=== PATIENT | female | born 1935 | race Caucasian/White ===

== ENCOUNTER 2017-06-14 18:27 | Inpatient (IN) | payer MEDICARE, OTHER ==
[~2017-06-14] VITALS: Ht 160 cm; Wt 79.5 kg
[~2017-06-14 18:27] MED LIST: ACET325; ACET325 PO; ALBIPROI; ALBIPROI INH; ALBU3IS INH; ALBU90I INH; ALBU90OI INH; ALBU90OI6 INH; APRISO PO; ASCO500 PO; ATOR20 PO; AZIT250 PO; Aggrenox Capsu1 EACH PO; Apriso0.375 GM; Apriso0.375 GM PO; CALCNI; CEFAZOLIN 2 GM; CEFD300 PO; CEFP200 PO; CEFP500 PO; CEPH250A PO; CEPH500 PO; CETI10 PO; CIPR250 PO; CIPR500 PO; CLIN150 PO; CLIN300 PO; CLOT10 SUSW; CYCL10 PO; Ceftriaxone2 G1 PO; DARB200I SC; DARB200I SQ; DEXILANT PO; DIPASPER; DIPASPER PO; DIPENTUM; DIPENTUM PO; DOCSEN PO; DOCU100 PO; DOXE0.5; DOXE0.5 PO; DOXE25; DOXY100 PO; ENOX100I SQ; ERGO50000 PO; ESTRTP PV; FAMO20; FAMO20 PO; FERR325 PO; FLUC100 PO; FLUSAL1005 IH; FLUSAL2505 IH; FLUSAL5005 IH; FLUT.05NI; FLUT1DIS5 INH; FURO100EL; FURO20; FURO40 PO; Furosemide40 MG; GABA300; GABA300 PO; GABA400 PO; GABA600 PO; GUAI600T33 PO; HYDACE10B PO; HYDACE5 PO; HYDACE5325 PO; HYDCHL12.5 PO; HYDCHL25; HYDCOR1TC TOP; HYDR10; HYDR10 PO; HYDR1TAB94 PO; Humalog100 UNIT/3 SC; IBUP200; INSLI100I; INSLI100I SC; INSLI100I SUBQ; INSLIS75I SC; INSU100I6; INSU100I6 SC; INSUASPI SC; INSUL100I SC; INSULANI; INSULANI SC; INSULANI SUBQ; INSULANPEN SC; INSULISPEN SUBQ; LEVE500 PO; LEVFLO250 PO; LEVFLO500; LEVFLO500 PO; LEVO750; LEVO750 PO; LEVOFLOXACIN500 MG; LISI10 PO; LISI20; LISI5 PO; LOSA50 PO; Levaquin500 MG PO; MESA250ER PO; META400; METH1TAB8 PO; METO10 PO; METO25 PO; METO5A PO; METPRE4DP PO; METR500 PO; MIRT15 PO; MOMCAS15; MOVIPREP; MULVITMIND PO; Milk Of Ma800 MG/5 M PO; Mucinex600 MG PO; NAPR500; NEBI10 PO; NEBI5 PO; NIAC500 PO; NITR.4SL SL; NITR.4TPA TOP; NITR100 PO; NITR100CA PO; Nasal Spray30 ML; Nitrofurantoin50 MG PO; Norco 5-325 Ta1 EACH PO; Novolog Fl100 UNIT/1 SC; Novolog Fl100 UNIT/1 SQ; OLOP.1OPSO; OLOP.1OPSO BOTHEYES; OLOPATADINE H30.5 GM NS; OMEP20ER; OMEP20ER PO; OMEP40CA12 PO; ONDA4 PO; ONDA4ODT MM; OXYACE5T PO; PANT40 PO; PATANASE; PIOG15; PIOG30 PO; PIOG45 PO; POLY17UD PO; POTCHL10ER; POTCHL10ER PO; POTCHL20ER PO; PRED10 PO; PRED20; PRED20 PO; PRED5; PREG75; PROACE100; PROACE100 PO; PROM25 PO; Pantoprazole So40 MG PO; Pedi-Dri 100,0060 GM TOP; Percocet 5-3251 EACH PO; Prednisone20 MG; Prednisone20 MG PO; QUESTRAN PO; ROSI4; RXHYDACE PO; RXPROACE PO; SACC250C PO; SIMV10; SIMV10 PO; SIMV40; SIMV40 PO; SPIRIVA; TEMA15 PO; TIOT18 IH; TORSE20 PO; TRIAOI; TRIM100 PO; VICODIN 5-3001 EACH PO; Ventolin Soln3 ML INH; Zithromax250 MG PO; [UNRECOGNIZED DRUG - CODE] PO
[2017-06-14 19:42] LABS: BASOPHILS ABSOLUTE AUTO 0.03 K/mm3 (0.00-0.23); BASOPHILS PERCENT AUTO 0 % (0-2); EOSINOPHILS ABSOLUTE AUTO 0.03 K/mm3 (0.00-0.68); EOSINOPHILS PERCENT AUTO 0 % (0-6); Hemoglobin 13.9 g/dL (11.5-16.0); IMMATURE GRAN ABSOLUTE AUTO 0.03 K/mm3 (0.00-0.10); IMMATURE GRAN PERCENT AUTO 0 % (0-1); LYMPHOCYTES ABSOLUTE AUTO 0.28 K/mm3 (0.84-5.20); LYMPHOCYTES PERCENT AUTO 2 % (21-46); MONOCYTES ABSOLUTE AUTO 0.58 K/mm3 (0.16-1.47); MONOCYTES PERCENT AUTO 4 % (4-13); Mean Corpuscular HGB 31.4 pg (26.0-34.0); Mean Corpuscular HGB Conc 32.3 g/dL (31.5-36.5); Mean Platelet Volume 10.5 fL (9.1-12.4); NEUTROPHILS ABSOLUTE AUTO 14.41 K/mm3 (1.96-9.15); NEUTROPHILS PERCENT AUTO 94 % (41-73); Platelet Count 209 K/mm3 (150-400); RDW Coefficient Variation 13.4 % (11.7-14.2); RDW Standard Deviation 48.1 fL (35.1-46.3); Red Blood Cell Count 4.43 M/mm3 (3.80-5.20); White Blood Cell Count 15.36 K/mm3 (4.00-11.30)
[2017-06-14 19:43] LABS: Mean Corpuscular Volume 97 fL (80-100)
[2017-06-14 19:54] LABS: International Normalized Ratio 1.01; Prothrombin Time Results 10.5 Sec (9.7-11.5)
[2017-06-14 19:57] LABS: Alanine Aminotransfer (ALT/SGP 24 U/L (12-78); Albumin, Blood 3.5 g/dL (3.4-5.0); Albumin/Globulin Ratio 0.9 (0.8-1.8); Alk Phos 129 U/L (50-136); Anion Gap 7 mmol/L (6-16); Aspartate Aminotrans (AST/SGOT 13 U/L (12-37); Bilirubin, Total 0.5 mg/dL (0.1-1.0); Blood Urea Nitrogen 25 mg/dL (8-24); Bun/Creatinine Ratio 21.7 (12.0-20.0); CO2, Blood 27 mmol/L (21-32); Calcium, Blood 9.1 mg/dL (8.5-10.1); Chloride, Blood 105 mmol/L (98-108); Creatinine, Blood 1.15 mg/dL (0.40-1.00); Globulin, Blood 3.8 g/dL (2.2-4.0); Glomerular Filtration Rate 48 (60-); Glucose, Blood 186 mg/dL (70-99); Potassium, Blood 4.7 mmol/L (3.5-5.5); Sodium, Blood 139 mmol/L (136-145); Total Protein, Blood 7.3 g/dL (6.4-8.2)
[2017-06-14 19:59] LABS: Influenza A Negative (NEGATIVE); Influenza B Negative (NEGATIVE)
[2017-06-14 20:25] LABS: Troponin I <0.015 ng/mL (0.000-0.040)
[2017-06-14 20:45] LABS: Source, Urine Catheter
[2017-06-14 20:48] LABS: Bilirubin, Urine Neg (Neg); Blood, Urine 1+ (Neg); Glucose Qualitative, Urine Neg (Neg); Ketones, Urine Neg (Neg); Leukocyte Esterase, Urine 1+ (Neg); Nitrite, Urine Neg (Neg); Protein, Urine 2+ (Neg); Urobilinogen, Urine NORM (Normal)
[2017-06-14 20:58] LABS: Appearance, Urine Clear (Clear); Color, Urine Yellow (P-Yellow)
[2017-06-14 20:59] LABS: Bacteria Rare /hpf; Red Blood Cells, Urine Not Seen /hpf (0-2); Squamous Epithelial Cells Rare /hpf (Few); White Blood Cells, Urine Not Seen /hpf (0-5)
[2017-06-15 04:28] LABS: U Amphetamine Screen Not Detected; U Barbituate Screen Not Detected; U Benzodiazapine Screen Not Detected; U Buprenorphine Screen Not Detected; U Cannabinoids Screen Not Detected; U Cocaine Screen Not Detected; U Methadone Screen Not Detected; U Methamphetamine Screen Not Detected; U Opiates Screen DETECTED; U Oxycodone Screen Not Detected; U Phencyclidine Screen Not Detected; U Propoxyphene Screen Not Detected
[2017-06-15 06:09] LABS: BASOPHILS ABSOLUTE AUTO 0.01 K/mm3 (0.00-0.23); BASOPHILS PERCENT AUTO 0 % (0-2); EOSINOPHILS ABSOLUTE AUTO 0.01 K/mm3 (0.00-0.68); EOSINOPHILS PERCENT AUTO 0 % (0-6); Hematocrit 36.6 % (33.0-51.0); Hemoglobin 11.5 g/dL (11.5-16.0); IMMATURE GRAN ABSOLUTE AUTO 0.03 K/mm3 (0.00-0.10); IMMATURE GRAN PERCENT AUTO 0 % (0-1); LYMPHOCYTES PERCENT AUTO 8 % (21-46); MONOCYTES ABSOLUTE AUTO 0.46 K/mm3 (0.16-1.47); MONOCYTES PERCENT AUTO 5 % (4-13); Mean Corpuscular HGB 30.5 pg (26.0-34.0); Mean Corpuscular HGB Conc 31.4 g/dL (31.5-36.5); Mean Corpuscular Volume 97 fL (80-100); Mean Platelet Volume 10.7 fL (9.1-12.4); NEUTROPHILS ABSOLUTE AUTO 7.74 K/mm3 (1.96-9.15); NEUTROPHILS PERCENT AUTO 87 % (41-73); Platelet Count 184 K/mm3 (150-400); RDW Coefficient Variation 13.7 % (11.7-14.2); RDW Standard Deviation 48.1 fL (35.1-46.3); Red Blood Cell Count 3.77 M/mm3 (3.80-5.20); White Blood Cell Count 8.95 K/mm3 (4.00-11.30)
[2017-06-15 06:48] LABS: Albumin, Blood 2.5 g/dL (3.4-5.0); Anion Gap 7 mmol/L (6-16); Blood Urea Nitrogen 21 mg/dL (8-24); Bun/Creatinine Ratio 17.9 (12.0-20.0); CO2, Blood 24 mmol/L (21-32); Calcium, Blood 7.8 mg/dL (8.5-10.1); Chloride, Blood 111 mmol/L (98-108); Creatinine, Blood 1.17 mg/dL (0.40-1.00); Glomerular Filtration Rate 47 (60-); Glucose, Blood 171 mg/dL (70-99); Phosphorus, Blood 2.6 mg/dL (2.5-4.9); Potassium, Blood 4.2 mmol/L (3.5-5.5); Sodium, Blood 142 mmol/L (136-145)
[2017-06-16 05:09] LABS: BASOPHILS ABSOLUTE AUTO 0.01 K/mm3 (0.00-0.23); BASOPHILS PERCENT AUTO 0 % (0-2); EOSINOPHILS PERCENT AUTO 2 % (0-6); Hematocrit 34.5 % (33.0-51.0); IMMATURE GRAN ABSOLUTE AUTO 0.03 K/mm3 (0.00-0.10); IMMATURE GRAN PERCENT AUTO 1 % (0-1); LYMPHOCYTES ABSOLUTE AUTO 1.47 K/mm3 (0.84-5.20); LYMPHOCYTES PERCENT AUTO 24 % (21-46); MONOCYTES ABSOLUTE AUTO 0.66 K/mm3 (0.16-1.47); MONOCYTES PERCENT AUTO 11 % (4-13); Mean Corpuscular HGB 30.7 pg (26.0-34.0); Mean Corpuscular HGB Conc 31.9 g/dL (31.5-36.5); Mean Corpuscular Volume 96 fL (80-100); Mean Platelet Volume 10.4 fL (9.1-12.4); NEUTROPHILS ABSOLUTE AUTO 3.88 K/mm3 (1.96-9.15); NEUTROPHILS PERCENT AUTO 63 % (41-73); Platelet Count 165 K/mm3 (150-400); RDW Coefficient Variation 13.4 % (11.7-14.2); RDW Standard Deviation 47.2 fL (35.1-46.3); Red Blood Cell Count 3.58 M/mm3 (3.80-5.20); White Blood Cell Count 6.15 K/mm3 (4.00-11.30)
[2017-06-16 05:33] LABS: Albumin, Blood 2.6 g/dL (3.4-5.0); Albumin/Globulin Ratio 0.9 (0.8-1.8); Bilirubin, Total 0.5 mg/dL (0.1-1.0); Bun/Creatinine Ratio 14.1 (12.0-20.0); Calcium, Blood 8.1 mg/dL (8.5-10.1); Creatinine, Blood 0.99 mg/dL (0.40-1.00); Potassium, Blood 3.9 mmol/L (3.5-5.5); Total Protein, Blood 5.6 g/dL (6.4-8.2)
[2017-06-19 05:11] LABS: BASOPHILS ABSOLUTE AUTO 0.02 K/mm3 (0.00-0.23); BASOPHILS PERCENT AUTO 0 % (0-2); EOSINOPHILS ABSOLUTE AUTO 0.13 K/mm3 (0.00-0.68); EOSINOPHILS PERCENT AUTO 1 % (0-6); Hematocrit 32.6 % (33.0-51.0); Hemoglobin 10.5 g/dL (11.5-16.0); IMMATURE GRAN ABSOLUTE AUTO 0.02 K/mm3 (0.00-0.10); IMMATURE GRAN PERCENT AUTO 0 % (0-1); LYMPHOCYTES ABSOLUTE AUTO 2.11 K/mm3 (0.84-5.20); LYMPHOCYTES PERCENT AUTO 24 % (21-46); MONOCYTES ABSOLUTE AUTO 0.67 K/mm3 (0.16-1.47); MONOCYTES PERCENT AUTO 8 % (4-13); Mean Corpuscular HGB 30.3 pg (26.0-34.0); Mean Corpuscular HGB Conc 32.2 g/dL (31.5-36.5); Mean Corpuscular Volume 94 fL (80-100); Mean Platelet Volume 10.4 fL (9.1-12.4); NEUTROPHILS ABSOLUTE AUTO 6.03 K/mm3 (1.96-9.15); NEUTROPHILS PERCENT AUTO 67 % (41-73); Platelet Count 209 K/mm3 (150-400); RDW Coefficient Variation 13.3 % (11.7-14.2); RDW Standard Deviation 45.5 fL (35.1-46.3); Red Blood Cell Count 3.46 M/mm3 (3.80-5.20); White Blood Cell Count 8.98 K/mm3 (4.00-11.30)
[2017-06-19 05:29] LABS: Albumin, Blood 2.6 g/dL (3.4-5.0); Albumin/Globulin Ratio 0.9 (0.8-1.8); Bilirubin, Total 0.4 mg/dL (0.1-1.0); Bun/Creatinine Ratio 14.9 (12.0-20.0); Calcium, Blood 8.1 mg/dL (8.5-10.1); Creatinine, Blood 1.14 mg/dL (0.40-1.00); Globulin, Blood 2.8 g/dL (2.2-4.0); Magnesium, Blood 1.8 mg/dL (1.6-2.4); Phosphorus, Blood 2.7 mg/dL (2.5-4.9); Potassium, Blood 3.9 mmol/L (3.5-5.5); Total Protein, Blood 5.4 g/dL (6.4-8.2)
[2017-10-26] MEDS ORDERED: INSU100I6 SC (16:07)
[2018-05-15] MEDS ORDERED: HYDR1TAB94 PO (19:33)
[2018-05-15] MEDS ORDERED: Humalog Mi100 UNIT/4 SC ×2 (19:39)
[2018-05-16] MEDS ORDERED: Ferrousul325 MG PO (03:57)
[2018-05-16] MEDS ORDERED: PROHEAL PO (04:07)
[2018-05-16] MEDS ORDERED: CHOL10002 PO (04:10)
[2018-05-16] MEDS ORDERED: MESA250ER PO (04:19)
[2018-05-16] MEDS ORDERED: INSULANPEN SC (04:28)
[2018-05-16] MEDS ORDERED: Humalog100 UNIT/3 (04:31)
[2018-05-21] MEDS ORDERED: ALBU3IS INH (13:13)
[2018-05-21] MEDS ORDERED: BENZ100A PO (14:15)
[2018-05-21] MEDS ORDERED: METR500 PO (14:26)
[2018-05-21] MEDS ORDERED: CEFD300 PO (14:26)
== END 2017-06-19 17:20 | disposition home or self-care (01) | DRG 391 ==
LOC: ER 18:27 → MEDS 21:47 → ENPENDDIS 06-19 11:30 → MEDS 06-19 17:20
PROVIDERS: Family Medicine; Hospitalist; Internal Medicine; Physician Assistant
DX: A08.4 Viral intestinal infection, unspecified (principal); G92 Toxic encephalopathy; G81.91 Hemiplegia, unspecified affecting right dominant side; K50.90 Crohn's disease, unspecified, without complications; Z99.81 Dependence on supplemental oxygen; D72.829 Elevated white blood cell count, unspecified; E11.9 Type 2 diabetes mellitus without complications; E78.5 Hyperlipidemia, unspecified; K52.9 Noninfective gastroenteritis and colitis, unspecified; J44.9 Chronic obstructive pulmonary disease, unspecified; I25.10 Atherosclerotic heart disease of native coronary artery without angina pectoris; I73.9 Peripheral vascular disease, unspecified; M19.90 Unspecified osteoarthritis, unspecified site; I12.9 Hypertensive chronic kidney disease with stage 1 through stage 4 chronic kidney disease, or unspecified chronic kidney disease; N18.3 Chronic kidney disease, stage 3 (moderate); Z79.4 Long term (current) use of insulin; Z86.73 Personal history of transient ischemic attack (TIA), and cerebral infarction without residual deficits; Z87.01 Personal history of pneumonia (recurrent)
CPT/HCPCS: 36415; 51702; 71020; 80053; 80069; 81001; 82947; 83605; 83735; 84100; 84484; 85025; 85610; 87040; 87086; 87493; 87804; 93005; 93010; 94640; 94760; 96360; 96361; 97110; 97116; 97161; 99285; G8978; G8979; J0744; J1815; J2405; J7030

== ENCOUNTER 2017-07-09 15:45 | Inpatient (IN) | payer MEDICARE, OTHER ==
[~2017-07-09] VITALS: Ht 160 cm; Wt 79.4 kg
[2017-07-09 16:46] LABS: BASOPHILS ABSOLUTE AUTO 0.02 K/mm3 (0.00-0.23); BASOPHILS PERCENT AUTO 0 % (0-2); EOSINOPHILS ABSOLUTE AUTO 0.06 K/mm3 (0.00-0.68); EOSINOPHILS PERCENT AUTO 1 % (0-6); Hematocrit 36.7 % (33.0-51.0); Hemoglobin 11.5 g/dL (11.5-16.0); IMMATURE GRAN ABSOLUTE AUTO 0.03 K/mm3 (0.00-0.10); IMMATURE GRAN PERCENT AUTO 0 % (0-1); LYMPHOCYTES ABSOLUTE AUTO 1.68 K/mm3 (0.84-5.20); LYMPHOCYTES PERCENT AUTO 20 % (21-46); MONOCYTES ABSOLUTE AUTO 0.73 K/mm3 (0.16-1.47); MONOCYTES PERCENT AUTO 9 % (4-13); Mean Corpuscular HGB 30.4 pg (26.0-34.0); Mean Corpuscular HGB Conc 31.3 g/dL (31.5-36.5); Mean Corpuscular Volume 97 fL (80-100); Mean Platelet Volume 10.3 fL (9.1-12.4); NEUTROPHILS ABSOLUTE AUTO 5.99 K/mm3 (1.96-9.15); NEUTROPHILS PERCENT AUTO 70 % (41-73); Platelet Count 251 K/mm3 (150-400); RDW Coefficient Variation 13.6 % (11.7-14.2); RDW Standard Deviation 48.3 fL (35.1-46.3); Red Blood Cell Count 3.78 M/mm3 (3.80-5.20); White Blood Cell Count 8.51 K/mm3 (4.00-11.30)
[2017-07-09 17:10] LABS: C-REACTIVE PROTEIN, EXT RANGE 2.91 mg/dL (0.000-0.300)
[2017-07-09 17:19] LABS: Albumin, Blood 3.6 g/dL (3.4-5.0); Albumin/Globulin Ratio 0.9 (0.8-1.8); Bilirubin, Total 0.5 mg/dL (0.1-1.0); Bun/Creatinine Ratio 13.6 (12.0-20.0); Calcium, Blood 9.4 mg/dL (8.5-10.1); Creatinine, Blood 1.1 mg/dL (0.40-1.00); Potassium, Blood 3.8 mmol/L (3.5-5.5); Total Protein, Blood 7.6 g/dL (6.4-8.2)
[2017-07-09 17:21] LABS: Source, Urine Clean Catch
[2017-07-09 17:26] LABS: Bilirubin, Urine Neg (Neg); Blood, Urine 1+ (Neg); Glucose Qualitative, Urine Neg (Neg); Ketones, Urine Neg (Neg); Leukocyte Esterase, Urine 3+ (Neg); Nitrite, Urine Neg (Neg); Protein, Urine 1+ (Neg); Urobilinogen, Urine NORM (Normal); pH, Urine 6.5 (5.0-8.0)
[2017-07-09] MEDS ORDERED: AMLO5 PO (17:40)
[2017-07-09] MEDS ORDERED: DOXY100T53 PO (17:41)
[2017-07-09 17:53] LABS: Appearance, Urine Clear (Clear); Color, Urine Yellow (P-Yellow); Red Blood Cells, Urine 0-2 /hpf (0-2); Squamous Epithelial Cells Few /hpf (Few); White Blood Cells, Urine 25-50 /hpf (0-5)
[2017-07-09 17:54] LABS: Bacteria Few /hpf
[2017-07-10 05:17] LABS: BASOPHILS ABSOLUTE AUTO 0.03 K/mm3 (0.00-0.23); BASOPHILS PERCENT AUTO 0 % (0-2); EOSINOPHILS ABSOLUTE AUTO 0.09 K/mm3 (0.00-0.68); EOSINOPHILS PERCENT AUTO 1 % (0-6); Hematocrit 33.5 % (33.0-51.0); Hemoglobin 10.3 g/dL (11.5-16.0); IMMATURE GRAN ABSOLUTE AUTO 0.03 K/mm3 (0.00-0.10); IMMATURE GRAN PERCENT AUTO 0 % (0-1); LYMPHOCYTES ABSOLUTE AUTO 0.97 K/mm3 (0.84-5.20); LYMPHOCYTES PERCENT AUTO 13 % (21-46); MONOCYTES ABSOLUTE AUTO 0.79 K/mm3 (0.16-1.47); MONOCYTES PERCENT AUTO 11 % (4-13); Mean Corpuscular HGB 30.5 pg (26.0-34.0); Mean Corpuscular HGB Conc 30.7 g/dL (31.5-36.5); Mean Corpuscular Volume 99 fL (80-100); Mean Platelet Volume 10.2 fL (9.1-12.4); NEUTROPHILS ABSOLUTE AUTO 5.53 K/mm3 (1.96-9.15); NEUTROPHILS PERCENT AUTO 74 % (41-73); Platelet Count 238 K/mm3 (150-400); RDW Coefficient Variation 13.7 % (11.7-14.2); RDW Standard Deviation 49.1 fL (35.1-46.3); Red Blood Cell Count 3.38 M/mm3 (3.80-5.20); White Blood Cell Count 7.44 K/mm3 (4.00-11.30)
[2017-07-10 05:56] LABS: Albumin, Blood 2.8 g/dL (3.4-5.0); Albumin/Globulin Ratio 0.8 (0.8-1.8); Bilirubin, Total 0.4 mg/dL (0.1-1.0); Globulin, Blood 3.3 g/dL (2.2-4.0); Potassium, Blood 3.6 mmol/L (3.5-5.5); Total Protein, Blood 6.1 g/dL (6.4-8.2)
[2017-07-10 05:57] LABS: Calcium, Blood 8.4 mg/dL (8.5-10.1)
[2017-07-11 21:24] LABS: Vancomycin, Trough 14.9 ug/mL (5.0-10.0)
[2017-07-13 10:33] LABS: Alanine Aminotransfer (ALT/SGP 14 U/L (12-78); Albumin, Blood 2.6 g/dL (3.4-5.0); Albumin/Globulin Ratio 0.8 (0.8-1.8); Alk Phos 87 U/L (50-136); Anion Gap 8 mmol/L (6-16); Aspartate Aminotrans (AST/SGOT 12 U/L (12-37); Bilirubin, Total 0.4 mg/dL (0.1-1.0); Blood Urea Nitrogen 10 mg/dL (8-24); Bun/Creatinine Ratio 10.5 (12.0-20.0); CO2, Blood 26 mmol/L (21-32); Calcium, Blood 8.4 mg/dL (8.5-10.1); Chloride, Blood 108 mmol/L (98-108); Creatinine, Blood 0.95 mg/dL (0.40-1.00); Globulin, Blood 3.4 g/dL (2.2-4.0); Glomerular Filtration Rate 60 (60-); Glucose, Blood 186 mg/dL (70-99); Magnesium, Blood 1.9 mg/dL (1.6-2.4); Potassium, Blood 4.6 mmol/L (3.5-5.5); Sodium, Blood 142 mmol/L (136-145); Troponin I <0.015 ng/mL (0.000-0.040)
[2017-07-13 21:54] LABS: Creatinine, Blood 0.99 mg/dL (0.40-1.00); Vancomycin, Trough 19.9 ug/mL (5.0-10.0)
[2017-07-15 06:50] LABS: BASOPHILS ABSOLUTE AUTO 0.02 K/mm3 (0.00-0.23); BASOPHILS PERCENT AUTO 0 % (0-2); EOSINOPHILS ABSOLUTE AUTO 0.12 K/mm3 (0.00-0.68); EOSINOPHILS PERCENT AUTO 2 % (0-6); Hematocrit 32.7 % (33.0-51.0); Hemoglobin 10.1 g/dL (11.5-16.0); IMMATURE GRAN ABSOLUTE AUTO 0.05 K/mm3 (0.00-0.10); IMMATURE GRAN PERCENT AUTO 1 % (0-1); LYMPHOCYTES ABSOLUTE AUTO 1.78 K/mm3 (0.84-5.20); LYMPHOCYTES PERCENT AUTO 23 % (21-46); MONOCYTES ABSOLUTE AUTO 0.48 K/mm3 (0.16-1.47); MONOCYTES PERCENT AUTO 6 % (4-13); Mean Corpuscular HGB 29.5 pg (26.0-34.0); Mean Corpuscular HGB Conc 30.9 g/dL (31.5-36.5); Mean Platelet Volume 9.6 fL (9.1-12.4); NEUTROPHILS ABSOLUTE AUTO 5.18 K/mm3 (1.96-9.15); NEUTROPHILS PERCENT AUTO 68 % (41-73); Platelet Count 231 K/mm3 (150-400); RDW Coefficient Variation 13.2 % (11.7-14.2); RDW Standard Deviation 46.3 fL (35.1-46.3); Red Blood Cell Count 3.42 M/mm3 (3.80-5.20); White Blood Cell Count 7.63 K/mm3 (4.00-11.30)
[2017-07-15 06:52] LABS: Mean Corpuscular Volume 96 fL (80-100)
[2017-07-15 07:16] LABS: Bun/Creatinine Ratio 17.2 (12.0-20.0); Calcium, Blood 8.6 mg/dL (8.5-10.1); Creatinine, Blood 0.99 mg/dL (0.40-1.00); Potassium, Blood 4.5 mmol/L (3.5-5.5)
[2017-07-15 22:57] LABS: Vancomycin, Trough 12.3 ug/mL (5.0-10.0)
[2017-07-16 18:07] LABS: International Normalized Ratio 1.02; Prothrombin Time Results 10.6 Sec (9.7-11.5)
[2017-07-18 04:56] LABS: BASOPHILS ABSOLUTE AUTO 0.02 K/mm3 (0.00-0.23); BASOPHILS PERCENT AUTO 0 % (0-2); EOSINOPHILS ABSOLUTE AUTO 0.17 K/mm3 (0.00-0.68); EOSINOPHILS PERCENT AUTO 2 % (0-6); Hematocrit 33.2 % (33.0-51.0); Hemoglobin 10.4 g/dL (11.5-16.0); IMMATURE GRAN ABSOLUTE AUTO 0.06 K/mm3 (0.00-0.10); IMMATURE GRAN PERCENT AUTO 1 % (0-1); LYMPHOCYTES PERCENT AUTO 18 % (21-46); MONOCYTES ABSOLUTE AUTO 0.68 K/mm3 (0.16-1.47); MONOCYTES PERCENT AUTO 7 % (4-13); Mean Corpuscular HGB Conc 31.3 g/dL (31.5-36.5); Mean Corpuscular Volume 96 fL (80-100); Mean Platelet Volume 10.1 fL (9.1-12.4); NEUTROPHILS ABSOLUTE AUTO 6.72 K/mm3 (1.96-9.15); NEUTROPHILS PERCENT AUTO 72 % (41-73); Platelet Count 240 K/mm3 (150-400); RDW Coefficient Variation 13.3 % (11.7-14.2); RDW Standard Deviation 46.5 fL (35.1-46.3); Red Blood Cell Count 3.47 M/mm3 (3.80-5.20); White Blood Cell Count 9.35 K/mm3 (4.00-11.30)
[2017-07-18 05:18] LABS: Albumin, Blood 2.8 g/dL (3.4-5.0); Albumin/Globulin Ratio 0.8 (0.8-1.8); Bilirubin, Total 0.4 mg/dL (0.1-1.0); Bun/Creatinine Ratio 19.2 (12.0-20.0); Calcium, Blood 8.4 mg/dL (8.5-10.1); Creatinine, Blood 0.99 mg/dL (0.40-1.00); Globulin, Blood 3.3 g/dL (2.2-4.0); Potassium, Blood 4.4 mmol/L (3.5-5.5); Total Protein, Blood 6.1 g/dL (6.4-8.2)
[2017-07-19] MEDS ORDERED: CLOP75 PO (16:43)
[2017-07-19] MEDS ORDERED: ASPI81CH PO (16:43)
[2017-07-19] MEDS ORDERED: CEPH500 PO (16:44)
[2017-10-26] MEDS ORDERED: INSU100I6 SC (16:07)
[2018-05-15] MEDS ORDERED: HYDR1TAB94 PO (19:33)
[2018-05-15] MEDS ORDERED: Humalog Mi100 UNIT/4 SC ×2 (19:39)
[2018-05-16] MEDS ORDERED: Ferrousul325 MG PO (03:57)
[2018-05-16] MEDS ORDERED: PROHEAL PO (04:07)
[2018-05-16] MEDS ORDERED: CHOL10002 PO (04:10)
[2018-05-16] MEDS ORDERED: MESA250ER PO (04:19)
[2018-05-16] MEDS ORDERED: INSULANPEN SC (04:28)
[2018-05-16] MEDS ORDERED: Humalog100 UNIT/3 (04:31)
[2018-05-21] MEDS ORDERED: ALBU3IS INH (13:13)
[2018-05-21] MEDS ORDERED: BENZ100A PO (14:15)
[2018-05-21] MEDS ORDERED: CEFD300 PO (14:26)
[2018-05-21] MEDS ORDERED: METR500 PO (14:26)
== END 2017-07-19 18:10 | disposition home health service (06) | DRG 253 ==
LOC: ER 15:45 → MEDS 18:34 → ICUW 07-16 15:44 → SURS 07-17 19:36
PROVIDERS: Family Medicine; Hospitalist; Internal Medicine; Internal Medicine Interventional Cardiology; Physician Assistant
PROC: 047L3Z1 Dilation of Left Femoral Artery using Drug-Coated Balloon, Percutaneous Approach (ICD-10-PCS; principal; 2017-07-16)
PROC: 047N3Z1 Dilation of Left Popliteal Artery using Drug-Coated Balloon, Percutaneous Approach (ICD-10-PCS; 2017-07-16)
PROC: 047S3ZZ Dilation of Left Posterior Tibial Artery, Percutaneous Approach (ICD-10-PCS; 2017-07-16)
PROC: B4101ZZ Fluoroscopy of Abdominal Aorta using Low Osmolar Contrast (ICD-10-PCS; 2017-07-16)
DX: E11.52 Type 2 diabetes mellitus with diabetic peripheral angiopathy with gangrene (principal); J96.11 Chronic respiratory failure with hypoxia; E11.22 Type 2 diabetes mellitus with diabetic chronic kidney disease; I70.263 Atherosclerosis of native arteries of extremities with gangrene, bilateral legs; E11.42 Type 2 diabetes mellitus with diabetic polyneuropathy; I69.351 Hemiplegia and hemiparesis following cerebral infarction affecting right dominant side; L03.116 Cellulitis of left lower limb; K50.90 Crohn's disease, unspecified, without complications; L97.429 Non-pressure chronic ulcer of left heel and midfoot with unspecified severity; E11.621 Type 2 diabetes mellitus with foot ulcer; K31.84 Gastroparesis; E11.622 Type 2 diabetes mellitus with other skin ulcer; N18.3 Chronic kidney disease, stage 3 (moderate); I25.10 Atherosclerotic heart disease of native coronary artery without angina pectoris; L03.032 Cellulitis of left toe; J44.9 Chronic obstructive pulmonary disease, unspecified; Z99.81 Dependence on supplemental oxygen; E11.43 Type 2 diabetes mellitus with diabetic autonomic (poly)neuropathy; D63.8 Anemia in other chronic diseases classified elsewhere; I12.9 Hypertensive chronic kidney disease with stage 1 through stage 4 chronic kidney disease, or unspecified chronic kidney disease; E78.5 Hyperlipidemia, unspecified; B95.61 Methicillin susceptible Staphylococcus aureus infection as the cause of diseases classified elsewhere; K21.9 Gastro-esophageal reflux disease without esophagitis; G89.29 Other chronic pain; I16.0 Hypertensive urgency; N31.2 Flaccid neuropathic bladder, not elsewhere classified; R20.9 Unspecified disturbances of skin sensation; F32.9 Major depressive disorder, single episode, unspecified; L97.529 Non-pressure chronic ulcer of other part of left foot with unspecified severity; N39.498 Other specified urinary incontinence; Z86.718 Personal history of other venous thrombosis and embolism; Z88.6 Allergy status to analgesic agent; Z88.5 Allergy status to narcotic agent; Z88.0 Allergy status to penicillin; Z88.2 Allergy status to sulfonamides; Z79.02 Long term (current) use of antithrombotics/antiplatelets; Z79.51 Long term (current) use of inhaled steroids; Z79.4 Long term (current) use of insulin; Z87.01 Personal history of pneumonia (recurrent); Z87.891 Personal history of nicotine dependence; I69.320 Aphasia following cerebral infarction; I69.398 Other sequelae of cerebral infarction; Q27.8 Other specified congenital malformations of peripheral vascular system; R62.7 Adult failure to thrive
CPT/HCPCS: 36415; 37224; 37228; 37232; 51702; 73630; 75630; 75774; 80048; 80053; 80202; 81001; 82565; 82947; 83036; 83605; 83735; 83880; 84484; 85025; 85347; 85610; 85651; 85730; 86140; 87070; 87075; 87086; 87147; 87186; 87205; 93005; 93010; 93922; 94640; 94760; 94762; 96365; 97116; 97162; 97165; 97535; 99285; C1725; C1769; C1887; C1894; C2623; G8978; G8979; G8987; G8988; G8989; J0360; J1644; J1650; J1815; J1956; J2001; J2250; J2370; J3010; J3370; J7030; J7040; J7050; J7060; Q9967

== ENCOUNTER → 2017-07-26 | Outpatient (CLI) | payer MEDICARE, OTHER ==
[~2017-07-26] MED LIST changes: +AMLO5 PO; +ASPI81CH PO; +ATOR40TA PO; +BENZ100A PO; +BISA10S PR; +CEFU250T47 PO; +CHOL10002 PO; +CLOP75 PO; +CVS DISPOSABLE399 ML PR; +DOXERCALCIFER0.5 MCG PO; +DOXY100T53 PO; +FER-IN-SOL15 MG/1 ML PO; +FERSU90EL PO; +Ferrous Sulfat325 M2 PO; +Ferrousul325 MG PO; +Humalog Mi100 UNIT/4 SC; +Humalog100 UNIT/3; +MINO100 PO; +MIRALAX17 GM PO; +Micro-K10 MEQ PO; +Milk Of Ma400 MG/5 M PO; +NYSTATIN1 EAC1 TOP; +PROHEAL PO; +VIT1CAPS12 PO
[2017-07-27 14:30] LABS: Stool Occult Bld Immuno 1 Positive (NEGATIVE)
== END | disposition home or self-care (01) ==
LOC: LAB EV 14:13
PROVIDERS: Internal Medicine
DX: K50.90 Crohn's disease, unspecified, without complications (principal)
CPT/HCPCS: G0328

== ENCOUNTER 2017-07-27 09:59 | Emergency (ER) | payer MEDICARE, OTHER ==
[~2017-07-27] VITALS: Ht 162.6 cm; Wt 81.7 kg
[~2017-07-27 09:59] MED LIST changes: -ATOR40TA PO; -BENZ100A PO; -BISA10S PR; -CEFU250T47 PO; -CHOL10002 PO; -CVS DISPOSABLE399 ML PR; -DOXERCALCIFER0.5 MCG PO; -FER-IN-SOL15 MG/1 ML PO; -FERSU90EL PO; -Ferrous Sulfat325 M2 PO; -Ferrousul325 MG PO; -Humalog Mi100 UNIT/4 SC; -Humalog100 UNIT/3; -MINO100 PO; -MIRALAX17 GM PO; -Micro-K10 MEQ PO; -Milk Of Ma400 MG/5 M PO; -NYSTATIN1 EAC1 TOP; -PROHEAL PO; -VIT1CAPS12 PO
[2017-07-27 10:23] LABS: Source, Urine Catheter
[2017-07-27 10:25] LABS: Bilirubin, Urine Neg (Neg); Blood, Urine 5+ (Neg); Glucose Qualitative, Urine Neg (Neg); Ketones, Urine Neg (Neg); Leukocyte Esterase, Urine 1+ (Neg); Nitrite, Urine Neg (Neg); Protein, Urine 2+ (Neg); Specific Gravity, Urine 1.015 (1.003-1.022); Urobilinogen, Urine NORM (Normal)
[2017-07-27 10:30] LABS: Appearance, Urine Hazy (Clear); Color, Urine Red (P-Yellow)
[2017-07-27 10:31] LABS: BASOPHILS ABSOLUTE AUTO 0.07 K/mm3 (0.00-0.23); BASOPHILS PERCENT AUTO 1 % (0-2); EOSINOPHILS ABSOLUTE AUTO 0.16 K/mm3 (0.00-0.68); EOSINOPHILS PERCENT AUTO 2 % (0-6); Hematocrit 30.3 % (33.0-51.0); Hemoglobin 9.2 g/dL (11.5-16.0); IMMATURE GRAN ABSOLUTE AUTO 0.04 K/mm3 (0.00-0.10); IMMATURE GRAN PERCENT AUTO 0 % (0-1); LYMPHOCYTES ABSOLUTE AUTO 1.48 K/mm3 (0.84-5.20); LYMPHOCYTES PERCENT AUTO 14 % (21-46); MONOCYTES PERCENT AUTO 6 % (4-13); Mean Corpuscular HGB 29.7 pg (26.0-34.0); Mean Corpuscular HGB Conc 30.4 g/dL (31.5-36.5); Mean Corpuscular Volume 98 fL (80-100); Mean Platelet Volume 10.9 fL (9.1-12.4); NEUTROPHILS ABSOLUTE AUTO 8.08 K/mm3 (1.96-9.15); NEUTROPHILS PERCENT AUTO 77 % (41-73); Platelet Count 282 K/mm3 (150-400); RDW Coefficient Variation 12.8 % (11.7-14.2); RDW Standard Deviation 45.6 fL (35.1-46.3); White Blood Cell Count 10.43 K/mm3 (4.00-11.30)
[2017-07-27 10:32] LABS: Bacteria Few /hpf; Red Blood Cells, Urine TNTC /hpf (0-2); Squamous Epithelial Cells Rare /hpf (Few)
[2017-07-27 10:43] LABS: International Normalized Ratio 0.96
[2017-07-27 10:53] LABS: Albumin, Blood 3.6 g/dL (3.4-5.0); Bilirubin, Total 0.3 mg/dL (0.1-1.0); Bun/Creatinine Ratio 23.2 (12.0-20.0); Calcium, Blood 8.7 mg/dL (8.5-10.1); Creatinine, Blood 1.55 mg/dL (0.40-1.00); Globulin, Blood 3.5 g/dL (2.2-4.0); Potassium, Blood 4.1 mmol/L (3.5-5.5); Total Protein, Blood 7.1 g/dL (6.4-8.2); Troponin I 0.037 ng/mL (0.000-0.040)
[2017-10-26] MEDS ORDERED: INSU100I6 SC (16:07)
[2018-05-15] MEDS ORDERED: HYDR1TAB94 PO (19:33)
[2018-05-15] MEDS ORDERED: Humalog Mi100 UNIT/4 SC ×2 (19:39)
[2018-05-16] MEDS ORDERED: Ferrousul325 MG PO (03:57)
[2018-05-16] MEDS ORDERED: PROHEAL PO (04:07)
[2018-05-16] MEDS ORDERED: CHOL10002 PO (04:10)
[2018-05-16] MEDS ORDERED: MESA250ER PO (04:19)
[2018-05-16] MEDS ORDERED: INSULANPEN SC (04:28)
[2018-05-16] MEDS ORDERED: Humalog100 UNIT/3 (04:31)
[2018-05-21] MEDS ORDERED: ALBU3IS INH (13:13)
[2018-05-21] MEDS ORDERED: BENZ100A PO (14:15)
[2018-05-21] MEDS ORDERED: CEFD300 PO (14:26)
[2018-05-21] MEDS ORDERED: METR500 PO (14:26)
== END 2017-07-27 16:33 | disposition home or self-care (01) ==
LOC: ER 09:59
PROVIDERS: Emergency Medicine
DX: I73.9 Peripheral vascular disease, unspecified (principal); I12.9 Hypertensive chronic kidney disease with stage 1 through stage 4 chronic kidney disease, or unspecified chronic kidney disease; E11.22 Type 2 diabetes mellitus with diabetic chronic kidney disease; N18.9 Chronic kidney disease, unspecified; J44.9 Chronic obstructive pulmonary disease, unspecified; Z88.0 Allergy status to penicillin; Z88.2 Allergy status to sulfonamides; Z88.5 Allergy status to narcotic agent; Z79.4 Long term (current) use of insulin; Z79.899 Other long term (current) drug therapy; Z79.82 Long term (current) use of aspirin; Z86.718 Personal history of other venous thrombosis and embolism; Z87.01 Personal history of pneumonia (recurrent); Z90.49 Acquired absence of other specified parts of digestive tract; Z90.710 Acquired absence of both cervix and uterus; Z87.891 Personal history of nicotine dependence
CPT/HCPCS: 36415; 70450; 71045; 80053; 81001; 84484; 85025; 85610; 87086; 93005; 93010; 96360; 99284; J7030

== ENCOUNTER → 2017-08-22 | Outpatient (CLI) | payer MEDICARE, OTHER ==
[~2017-08-22] MED LIST changes: +ATOR40TA PO; +BENZ100A PO; +BISA10S PR; +CEFU250T47 PO; +CHOL10002 PO; +CVS DISPOSABLE399 ML PR; +DOXERCALCIFER0.5 MCG PO; +FER-IN-SOL15 MG/1 ML PO; +FERSU90EL PO; +Ferrous Sulfat325 M2 PO; +Ferrousul325 MG PO; +Humalog Mi100 UNIT/4 SC; +Humalog100 UNIT/3; +MINO100 PO; +MIRALAX17 GM PO; +Micro-K10 MEQ PO; +Milk Of Ma400 MG/5 M PO; +NYSTATIN1 EAC1 TOP; +PROHEAL PO; +VIT1CAPS12 PO
== END | disposition home or self-care (01) ==
LOC: LAB EV 16:58
DX: R30.0 Dysuria (principal)
CPT/HCPCS: 87086

== ENCOUNTER 2017-09-17 16:51 | Observation (INO) | payer MEDICARE, OTHER ==
[~2017-09-17] VITALS: Ht 160 cm; Wt 75.5 kg
[~2017-09-17 16:51] MED LIST changes: -ATOR40TA PO; -BENZ100A PO; -BISA10S PR; -CEFU250T47 PO; -CHOL10002 PO; -CVS DISPOSABLE399 ML PR; -DOXERCALCIFER0.5 MCG PO; -FER-IN-SOL15 MG/1 ML PO; -FERSU90EL PO; -Ferrous Sulfat325 M2 PO; -Ferrousul325 MG PO; -Humalog Mi100 UNIT/4 SC; -Humalog100 UNIT/3; -MINO100 PO; -MIRALAX17 GM PO; -Micro-K10 MEQ PO; -Milk Of Ma400 MG/5 M PO; -NYSTATIN1 EAC1 TOP; -PROHEAL PO; -VIT1CAPS12 PO
[2017-09-17 17:39] LABS: BASOPHILS ABSOLUTE AUTO 0.07 K/mm3 (0.00-0.23); BASOPHILS PERCENT AUTO 1 % (0-2); EOSINOPHILS ABSOLUTE AUTO 0.25 K/mm3 (0.00-0.68); EOSINOPHILS PERCENT AUTO 3 % (0-6); Hematocrit 38.8 % (33.0-51.0); Hemoglobin 11.9 g/dL (11.5-16.0); IMMATURE GRAN ABSOLUTE AUTO 0.04 K/mm3 (0.00-0.10); IMMATURE GRAN PERCENT AUTO 0 % (0-1); LYMPHOCYTES ABSOLUTE AUTO 2.45 K/mm3 (0.84-5.20); LYMPHOCYTES PERCENT AUTO 27 % (21-46); MONOCYTES ABSOLUTE AUTO 0.57 K/mm3 (0.16-1.47); MONOCYTES PERCENT AUTO 6 % (4-13); Mean Corpuscular HGB 28.5 pg (26.0-34.0); Mean Corpuscular HGB Conc 30.7 g/dL (31.5-36.5); Mean Corpuscular Volume 93 fL (80-100); Mean Platelet Volume 11.6 fL (9.1-12.4); NEUTROPHILS ABSOLUTE AUTO 5.79 K/mm3 (1.96-9.15); NEUTROPHILS PERCENT AUTO 63 % (41-73); Platelet Count 234 K/mm3 (150-400); RDW Coefficient Variation 13.4 % (11.7-14.2); RDW Standard Deviation 45.2 fL (35.1-46.3); Red Blood Cell Count 4.17 M/mm3 (3.80-5.20); White Blood Cell Count 9.17 K/mm3 (4.00-11.30)
[2017-09-17 18:06] LABS: Alanine Aminotransfer (ALT/SGP 26 U/L (12-78); Albumin, Blood 3.5 g/dL (3.4-5.0); Albumin/Globulin Ratio 0.9 (0.8-1.8); Alk Phos 98 U/L (50-136); Anion Gap 10 mmol/L (6-16); Aspartate Aminotrans (AST/SGOT 25 U/L (12-37); Bilirubin, Total 0.3 mg/dL (0.1-1.0); Blood Urea Nitrogen 43 mg/dL (8-24); Bun/Creatinine Ratio 32.1 (12.0-20.0); CO2, Blood 25 mmol/L (21-32); Calcium, Blood 9.3 mg/dL (8.5-10.1); Chloride, Blood 100 mmol/L (98-108); Creatinine, Blood 1.34 mg/dL (0.40-1.00); Globulin, Blood 3.7 g/dL (2.2-4.0); Glomerular Filtration Rate 40 (60-); Glucose, Blood 320 mg/dL (70-99); Magnesium, Blood 2.3 mg/dL (1.6-2.4); Potassium, Blood 4.4 mmol/L (3.5-5.5); Sodium, Blood 135 mmol/L (136-145); Total Protein, Blood 7.2 g/dL (6.4-8.2); Troponin I <0.015 ng/mL (0.000-0.040)
[2017-09-17] MEDS ORDERED: MINO100 PO (19:35)
[2017-09-17 20:43] LABS: U Amphetamine Screen Not Detected; U Barbituate Screen Not Detected; U Benzodiazapine Screen Not Detected; U Buprenorphine Screen Not Detected; U Cannabinoids Screen Not Detected; U Cocaine Screen Not Detected; U Methadone Screen Not Detected; U Methamphetamine Screen Not Detected; U Opiates Screen DETECTED; U Oxycodone Screen Not Detected; U Phencyclidine Screen Not Detected; U Propoxyphene Screen Not Detected
[2017-09-19 09:20] LABS: Bun/Creatinine Ratio 30.3 (12.0-20.0); Calcium, Blood 8.8 mg/dL (8.5-10.1); Creatinine, Blood 1.32 mg/dL (0.40-1.00); Potassium, Blood 4.1 mmol/L (3.5-5.5)
[2017-09-19] MEDS ORDERED: ATOR40TA PO (13:29)
[2017-10-26] MEDS ORDERED: INSU100I6 SC (16:07)
[2018-05-15] MEDS ORDERED: HYDR1TAB94 PO (19:33)
[2018-05-15] MEDS ORDERED: Humalog Mi100 UNIT/4 SC ×2 (19:39)
[2018-05-16] MEDS ORDERED: Ferrousul325 MG PO (03:57)
[2018-05-16] MEDS ORDERED: PROHEAL PO (04:07)
[2018-05-16] MEDS ORDERED: CHOL10002 PO (04:10)
[2018-05-16] MEDS ORDERED: MESA250ER PO (04:19)
[2018-05-16] MEDS ORDERED: INSULANPEN SC (04:28)
[2018-05-16] MEDS ORDERED: Humalog100 UNIT/3 (04:31)
[2018-05-21] MEDS ORDERED: ALBU3IS INH (13:13)
[2018-05-21] MEDS ORDERED: BENZ100A PO (14:15)
[2018-05-21] MEDS ORDERED: METR500 PO (14:26)
[2018-05-21] MEDS ORDERED: CEFD300 PO (14:26)
== END 2017-09-19 13:43 | disposition home or self-care (01) ==
LOC: ER 16:51 → MEDS 16:52
PROVIDERS: Emergency Medicine; Student in an Organized Health Care Education/Training Program
DX: R56.9 Unspecified convulsions (principal); I65.21 Occlusion and stenosis of right carotid artery; J44.9 Chronic obstructive pulmonary disease, unspecified; I25.10 Atherosclerotic heart disease of native coronary artery without angina pectoris; E11.43 Type 2 diabetes mellitus with diabetic autonomic (poly)neuropathy; K31.84 Gastroparesis; E11.40 Type 2 diabetes mellitus with diabetic neuropathy, unspecified; E11.22 Type 2 diabetes mellitus with diabetic chronic kidney disease; I12.9 Hypertensive chronic kidney disease with stage 1 through stage 4 chronic kidney disease, or unspecified chronic kidney disease; N18.3 Chronic kidney disease, stage 3 (moderate); I63.9 Cerebral infarction, unspecified; R33.9 Retention of urine, unspecified; K50.90 Crohn's disease, unspecified, without complications; D63.1 Anemia in chronic kidney disease; R09.02 Hypoxemia; E11.51 Type 2 diabetes mellitus with diabetic peripheral angiopathy without gangrene; G89.29 Other chronic pain; E78.5 Hyperlipidemia, unspecified; M19.90 Unspecified osteoarthritis, unspecified site; M81.0 Age-related osteoporosis without current pathological fracture; F32.9 Major depressive disorder, single episode, unspecified; K21.9 Gastro-esophageal reflux disease without esophagitis; R79.89 Other specified abnormal findings of blood chemistry; Z90.49 Acquired absence of other specified parts of digestive tract; Z86.73 Personal history of transient ischemic attack (TIA), and cerebral infarction without residual deficits; Z86.010 Personal history of colon polyps; Z90.710 Acquired absence of both cervix and uterus; Z90.721 Acquired absence of ovaries, unilateral; Z98.890 Other specified postprocedural states; Z87.891 Personal history of nicotine dependence; Z88.0 Allergy status to penicillin; Z88.2 Allergy status to sulfonamides; Z88.5 Allergy status to narcotic agent; Z79.82 Long term (current) use of aspirin; Z79.899 Other long term (current) drug therapy; Z79.4 Long term (current) use of insulin; Z86.718 Personal history of other venous thrombosis and embolism; Z87.01 Personal history of pneumonia (recurrent); Z79.01 Long term (current) use of anticoagulants
CPT/HCPCS: 36415; 51701; 51702; 70450; 71046; 80048; 80053; 81000; 82947; 83036; 83735; 83880; 84443; 84484; 85025; 93005; 93010; 93308; 93321; 93880; 94640; 94760; 96360; 96372; 97116; 97161; 97165; 97530; 97535; 99285; G0378; G8978; G8979; G8980; G8987; G8988; J1650; J1815; J1817; J7030

== ENCOUNTER 2017-10-17 15:58 | Inpatient (IN) | payer MEDICARE, OTHER ==
[~2017-10-17] VITALS: Ht 160 cm; Wt 102.5 kg
[~2017-10-17 15:58] MED LIST changes: +ATOR40TA PO; +MINO100 PO; +Norco 10-325 T1 EACH PO; -Norco 5-325 Ta1 EACH PO
[2017-10-17 17:01] LABS: BASOPHILS ABSOLUTE AUTO 0.05 K/mm3 (0.00-0.23); BASOPHILS PERCENT AUTO 0 % (0-2); EOSINOPHILS ABSOLUTE AUTO 0.12 K/mm3 (0.00-0.68); EOSINOPHILS PERCENT AUTO 1 % (0-6); Hematocrit 35.8 % (33.0-51.0); Hemoglobin 11.4 g/dL (11.5-16.0); IMMATURE GRAN ABSOLUTE AUTO 0.06 K/mm3 (0.00-0.10); IMMATURE GRAN PERCENT AUTO 0 % (0-1); LYMPHOCYTES ABSOLUTE AUTO 1.81 K/mm3 (0.84-5.20); LYMPHOCYTES PERCENT AUTO 12 % (21-46); MONOCYTES ABSOLUTE AUTO 0.76 K/mm3 (0.16-1.47); MONOCYTES PERCENT AUTO 5 % (4-13); Mean Corpuscular HGB 28.7 pg (26.0-34.0); Mean Corpuscular HGB Conc 31.8 g/dL (31.5-36.5); Mean Corpuscular Volume 90 fL (80-100); NEUTROPHILS ABSOLUTE AUTO 12.86 K/mm3 (1.96-9.15); NEUTROPHILS PERCENT AUTO 82 % (41-73); RDW Coefficient Variation 13.2 % (11.7-14.2); RDW Standard Deviation 43.1 fL (35.1-46.3); Red Blood Cell Count 3.97 M/mm3 (3.80-5.20); White Blood Cell Count 15.66 K/mm3 (4.00-11.30)
[2017-10-17 17:03] LABS: Mean Platelet Volume 10.5 fL (9.1-12.4); Platelet Count 277 K/mm3 (150-400)
[2017-10-17 18:08] LABS: Bilirubin, Urine Neg (Neg); Blood, Urine Neg (Neg); Glucose Qualitative, Urine 1+ (Neg); Ketones, Urine Neg (Neg); Leukocyte Esterase, Urine 2+ (Neg); Nitrite, Urine Neg (Neg); Protein, Urine 1+ (Neg); Urobilinogen, Urine NORM (Normal)
[2017-10-17 18:19] LABS: Appearance, Urine Clear (Clear); Color, Urine Yellow (P-Yellow)
[2017-10-17 18:19] LABS: Albumin, Blood 4.1 g/dL (3.4-5.0); Bilirubin, Total 0.3 mg/dL (0.1-1.0); Bun/Creatinine Ratio 20.3 (12.0-20.0); Calcium, Blood 9.9 mg/dL (8.5-10.1); Creatinine, Blood 1.43 mg/dL (0.40-1.00); Potassium, Blood 4.2 mmol/L (3.5-5.5); Total Protein, Blood 8.1 g/dL (6.4-8.2)
[2017-10-17 18:20] LABS: Bacteria Few /hpf; Red Blood Cells, Urine 0-2 /hpf (0-2); Squamous Epithelial Cells Few /hpf (Few)
[2017-10-18 04:28] LABS: Influenza A Negative (NEGATIVE); Influenza B Negative (NEGATIVE)
[2017-10-18 05:27] LABS: Hematocrit 36.8 % (33.0-51.0); Hemoglobin 11.8 g/dL (11.5-16.0); Mean Corpuscular HGB 28.9 pg (26.0-34.0); Mean Corpuscular HGB Conc 32.1 g/dL (31.5-36.5); Mean Corpuscular Volume 90 fL (80-100); Mean Platelet Volume 10.7 fL (9.1-12.4); Platelet Count 304 K/mm3 (150-400); RDW Coefficient Variation 13.6 % (11.7-14.2); RDW Standard Deviation 43.8 fL (35.1-46.3); Red Blood Cell Count 4.08 M/mm3 (3.80-5.20)
[2017-10-18 05:55] LABS: Albumin, Blood 3.3 g/dL (3.4-5.0); Anion Gap 8 mmol/L (6-16); Blood Urea Nitrogen 22 mg/dL (8-24); Bun/Creatinine Ratio 17.3 (12.0-20.0); CO2, Blood 25 mmol/L (21-32); Chloride, Blood 105 mmol/L (98-108); Creatinine, Blood 1.27 mg/dL (0.40-1.00); Glomerular Filtration Rate 43 (60-); Glucose, Blood 292 mg/dL (70-99); Phosphorus, Blood 2.9 mg/dL (2.5-4.9); Potassium, Blood 3.8 mmol/L (3.5-5.5); Sodium, Blood 138 mmol/L (136-145)
[2017-10-18 05:56] LABS: BAND PERCENT MAN 10 % (0-8); BASOPHILS PERCENT MAN 0 % (0-2); EOSINOPHILS PERCENT MAN 0 % (0-6); LYMPHOCYTES ABSOLUTE MAN 0.75 K/mm3 (0.84-5.20); LYMPHOCYTES PERCENT MAN 2 % (21-46); MONOCYTES ABSOLUTE MAN 1.13 K/mm3 (0.16-1.47); MONOCYTES PERCENT MAN 3 % (4-13); NEUTROPHILS ABSOLUTE MAN 35.81 K/mm3 (1.96-9.15); SEG NEUTROPHILS PERCENT MAN 85 % (41-73); TOTAL CELLS COUNTED 100
[2017-10-18 16:40] LABS: PO2 Arterial 70.2 mmHg (80-100); pH Blood Arterial 7.47 (7.35-7.45)
[2017-10-19 05:46] LABS: BASOPHILS ABSOLUTE AUTO 0.11 K/mm3 (0.00-0.23); BASOPHILS PERCENT AUTO 0 % (0-2); EOSINOPHILS PERCENT AUTO 0 % (0-6); Hematocrit 33.3 % (33.0-51.0); Hemoglobin 10.7 g/dL (11.5-16.0); IMMATURE GRAN PERCENT AUTO 5 % (0-1); LYMPHOCYTES ABSOLUTE AUTO 1.44 K/mm3 (0.84-5.20); LYMPHOCYTES PERCENT AUTO 3 % (21-46); MONOCYTES PERCENT AUTO 3 % (4-13); Mean Corpuscular HGB 28.7 pg (26.0-34.0); Mean Corpuscular HGB Conc 32.1 g/dL (31.5-36.5); Mean Corpuscular Volume 89 fL (80-100); Mean Platelet Volume 10.6 fL (9.1-12.4); NEUTROPHILS ABSOLUTE AUTO 37.05 K/mm3 (1.96-9.15); NEUTROPHILS PERCENT AUTO 88 % (41-73); Platelet Count 269 K/mm3 (150-400); RDW Standard Deviation 45.1 fL (35.1-46.3); Red Blood Cell Count 3.73 M/mm3 (3.80-5.20)
[2017-10-19 06:24] LABS: Bun/Creatinine Ratio 17.7 (12.0-20.0); Calcium, Blood 8.7 mg/dL (8.5-10.1); Creatinine, Blood 1.41 mg/dL (0.40-1.00); Magnesium, Blood 1.9 mg/dL (1.6-2.4); Potassium, Blood 3.6 mmol/L (3.5-5.5)
[2017-10-20 06:00] LABS: Adenovirus F 40/41 Not Detected (NOT DETECT); Astrovirus Not Detected (NOT DETECT); Campylobacter Sp Not Detected (NOT DETECT); Cryptosporidium Not Detected (NOT DETECT); Cyclospora Cayetanensis Not Detected (NOT DETECT); E. Coli O157 Not Detected (NOT DETECT); Entamoeba Histolytica Not Detected (NOT DETECT); Enteroaggregative E. coli-EAEC Not Detected (NOT DETECT); Enteropathogenic E. coli-EPEC Not Detected (NOT DETECT); Enterotoxigenic E. coli-ETEC Not Detected (NOT DETECT); Giardia Lamblia Not Detected (NOT DETECT); Norovirus GI/GII Not Detected (NOT DETECT); Plesiomonas Shigelloides Not Detected (NOT DETECT); Rotavirus A Not Detected (NOT DETECT); Salmonella Sp Not Detected (NOT DETECT); Sapovirus Not Detected (NOT DETECT); Shiga Toxin-prod E. coli-STEC Not Detected (NOT DETECT); Shigella/Enteroin E. coli-EIEC Not Detected (NOT DETECT); Vibrio Cholerae Not Detected (NOT DETECT); Vibrio Sp Not Detected (NOT DETECT); Yersinia Enterocolitica Not Detected (NOT DETECT)
[2017-10-20 12:01] LABS: Hematocrit 28.9 % (33.0-51.0); Hemoglobin 9.2 g/dL (11.5-16.0); Mean Corpuscular HGB 28.5 pg (26.0-34.0); Mean Corpuscular HGB Conc 31.8 g/dL (31.5-36.5); Mean Corpuscular Volume 90 fL (80-100); Mean Platelet Volume 10.5 fL (9.1-12.4); Platelet Count 231 K/mm3 (150-400); RDW Coefficient Variation 14.3 % (11.7-14.2); RDW Standard Deviation 46.2 fL (35.1-46.3); Red Blood Cell Count 3.23 M/mm3 (3.80-5.20); White Blood Cell Count 23.66 K/mm3 (4.00-11.30)
[2017-10-20 12:20] LABS: BASOPHILS PERCENT MAN 0 % (0-2); EOSINOPHILS PERCENT MAN 0 % (0-6); LYMPHOCYTES PERCENT MAN 3 % (21-46); MONOCYTES ABSOLUTE MAN 0.23 K/mm3 (0.16-1.47); MONOCYTES PERCENT MAN 1 % (4-13); NEUTROPHILS ABSOLUTE MAN 22.71 K/mm3 (1.96-9.15); SEG NEUTROPHILS PERCENT MAN 96 % (41-73); TOTAL CELLS COUNTED 100
[2017-10-20 12:21] LABS: Bun/Creatinine Ratio 21.4 (12.0-20.0); Calcium, Blood 8.4 mg/dL (8.5-10.1); Creatinine, Blood 1.59 mg/dL (0.40-1.00); Potassium, Blood 3.3 mmol/L (3.5-5.5)
[2017-10-20 12:23] LABS: Vancomycin, Trough 15.2 ug/mL (5.0-10.0)
[2017-10-21 05:24] LABS: BASOPHILS ABSOLUTE AUTO 0.04 K/mm3 (0.00-0.23); BASOPHILS PERCENT AUTO 0 % (0-2); EOSINOPHILS ABSOLUTE AUTO 0.06 K/mm3 (0.00-0.68); EOSINOPHILS PERCENT AUTO 0 % (0-6); Hematocrit 31.1 % (33.0-51.0); Hemoglobin 9.8 g/dL (11.5-16.0); IMMATURE GRAN ABSOLUTE AUTO 0.14 K/mm3 (0.00-0.10); IMMATURE GRAN PERCENT AUTO 1 % (0-1); LYMPHOCYTES ABSOLUTE AUTO 1.41 K/mm3 (0.84-5.20); LYMPHOCYTES PERCENT AUTO 7 % (21-46); MONOCYTES PERCENT AUTO 4 % (4-13); Mean Corpuscular HGB 28.2 pg (26.0-34.0); Mean Corpuscular HGB Conc 31.5 g/dL (31.5-36.5); Mean Corpuscular Volume 89 fL (80-100); Mean Platelet Volume 10.4 fL (9.1-12.4); NEUTROPHILS ABSOLUTE AUTO 17.99 K/mm3 (1.96-9.15); NEUTROPHILS PERCENT AUTO 88 % (41-73); Platelet Count 265 K/mm3 (150-400); RDW Coefficient Variation 14.7 % (11.7-14.2); RDW Standard Deviation 47.4 fL (35.1-46.3); Red Blood Cell Count 3.48 M/mm3 (3.80-5.20); White Blood Cell Count 20.54 K/mm3 (4.00-11.30)
[2017-10-21 05:51] LABS: Albumin, Blood 2.1 g/dL (3.4-5.0); Albumin/Globulin Ratio 0.5 (0.8-1.8); Bilirubin, Total 0.3 mg/dL (0.1-1.0); Bun/Creatinine Ratio 22.5 (12.0-20.0); Calcium, Blood 8.9 mg/dL (8.5-10.1); Creatinine, Blood 1.69 mg/dL (0.40-1.00); Globulin, Blood 4.4 g/dL (2.2-4.0); Potassium, Blood 3.2 mmol/L (3.5-5.5); Total Protein, Blood 6.5 g/dL (6.4-8.2)
[2017-10-22 05:40] LABS: BASOPHILS ABSOLUTE AUTO 0.02 K/mm3 (0.00-0.23); BASOPHILS PERCENT AUTO 0 % (0-2); EOSINOPHILS ABSOLUTE AUTO 0.09 K/mm3 (0.00-0.68); EOSINOPHILS PERCENT AUTO 1 % (0-6); Hematocrit 26.8 % (33.0-51.0); Hemoglobin 8.6 g/dL (11.5-16.0); IMMATURE GRAN ABSOLUTE AUTO 0.21 K/mm3 (0.00-0.10); IMMATURE GRAN PERCENT AUTO 2 % (0-1); LYMPHOCYTES ABSOLUTE AUTO 0.82 K/mm3 (0.84-5.20); LYMPHOCYTES PERCENT AUTO 7 % (21-46); MONOCYTES ABSOLUTE AUTO 0.78 K/mm3 (0.16-1.47); MONOCYTES PERCENT AUTO 7 % (4-13); Mean Corpuscular HGB 28.2 pg (26.0-34.0); Mean Corpuscular HGB Conc 32.1 g/dL (31.5-36.5); Mean Corpuscular Volume 88 fL (80-100); Mean Platelet Volume 10.6 fL (9.1-12.4); NEUTROPHILS ABSOLUTE AUTO 9.98 K/mm3 (1.96-9.15); NEUTROPHILS PERCENT AUTO 84 % (41-73); Platelet Count 228 K/mm3 (150-400); RDW Standard Deviation 47.5 fL (35.1-46.3); Red Blood Cell Count 3.05 M/mm3 (3.80-5.20)
[2017-10-22 05:58] LABS: Albumin, Blood 1.8 g/dL (3.4-5.0); Albumin/Globulin Ratio 0.4 (0.8-1.8); Bilirubin, Total 0.3 mg/dL (0.1-1.0); Bun/Creatinine Ratio 27.7 (12.0-20.0); Calcium, Blood 8.3 mg/dL (8.5-10.1); Creatinine, Blood 1.37 mg/dL (0.40-1.00); Globulin, Blood 4.1 g/dL (2.2-4.0); Potassium, Blood 3.8 mmol/L (3.5-5.5); Total Protein, Blood 5.9 g/dL (6.4-8.2)
[2017-10-22 14:08] LABS: VARICELLA ZOSTER IGG 639 index (Immune >165)
[2017-10-23 06:10] LABS: BASOPHILS ABSOLUTE AUTO 0.02 K/mm3 (0.00-0.23); BASOPHILS PERCENT AUTO 0 % (0-2); EOSINOPHILS ABSOLUTE AUTO 0.31 K/mm3 (0.00-0.68); EOSINOPHILS PERCENT AUTO 3 % (0-6); Hemoglobin 8.2 g/dL (11.5-16.0); IMMATURE GRAN ABSOLUTE AUTO 0.32 K/mm3 (0.00-0.10); IMMATURE GRAN PERCENT AUTO 4 % (0-1); LYMPHOCYTES PERCENT AUTO 11 % (21-46); MONOCYTES ABSOLUTE AUTO 0.93 K/mm3 (0.16-1.47); MONOCYTES PERCENT AUTO 10 % (4-13); Mean Corpuscular HGB 28.8 pg (26.0-34.0); Mean Corpuscular HGB Conc 32.8 g/dL (31.5-36.5); Mean Corpuscular Volume 88 fL (80-100); Mean Platelet Volume 10.5 fL (9.1-12.4); NEUTROPHILS ABSOLUTE AUTO 6.67 K/mm3 (1.96-9.15); NEUTROPHILS PERCENT AUTO 72 % (41-73); Platelet Count 248 K/mm3 (150-400); RDW Standard Deviation 47.9 fL (35.1-46.3); Red Blood Cell Count 2.85 M/mm3 (3.80-5.20); White Blood Cell Count 9.25 K/mm3 (4.00-11.30)
[2017-10-23 06:28] LABS: Albumin, Blood 1.8 g/dL (3.4-5.0); Albumin/Globulin Ratio 0.4 (0.8-1.8); Bilirubin, Total 0.2 mg/dL (0.1-1.0); Bun/Creatinine Ratio 25.4 (12.0-20.0); Calcium, Blood 8.5 mg/dL (8.5-10.1); Creatinine, Blood 1.14 mg/dL (0.40-1.00); Potassium, Blood 4.2 mmol/L (3.5-5.5); Total Protein, Blood 5.8 g/dL (6.4-8.2)
[2017-10-23 13:14] LABS: Vancomycin, Trough 19.3 ug/mL (5.0-10.0)
[2017-10-23 22:22] LABS: Glucose, Blood 543 mg/dL (70-99)
[2017-10-23 23:54] LABS: Glucose, Blood 586 mg/dL (70-99)
[2017-10-24 03:37] LABS: Glucose, Blood 564 mg/dL (70-99)
[2017-10-24 07:33] LABS: BASOPHILS ABSOLUTE AUTO 0.01 K/mm3 (0.00-0.23); BASOPHILS PERCENT AUTO 0 % (0-2); EOSINOPHILS PERCENT AUTO 0 % (0-6); Hematocrit 24.3 % (33.0-51.0); Hemoglobin 7.8 g/dL (11.5-16.0); IMMATURE GRAN ABSOLUTE AUTO 0.46 K/mm3 (0.00-0.10); IMMATURE GRAN PERCENT AUTO 5 % (0-1); LYMPHOCYTES ABSOLUTE AUTO 1.02 K/mm3 (0.84-5.20); LYMPHOCYTES PERCENT AUTO 11 % (21-46); MONOCYTES ABSOLUTE AUTO 0.42 K/mm3 (0.16-1.47); MONOCYTES PERCENT AUTO 5 % (4-13); Mean Corpuscular HGB 28.2 pg (26.0-34.0); Mean Corpuscular HGB Conc 32.1 g/dL (31.5-36.5); Mean Corpuscular Volume 88 fL (80-100); Mean Platelet Volume 10.8 fL (9.1-12.4); NEUTROPHILS ABSOLUTE AUTO 7.31 K/mm3 (1.96-9.15); NEUTROPHILS PERCENT AUTO 79 % (41-73); Platelet Count 284 K/mm3 (150-400); RDW Coefficient Variation 14.8 % (11.7-14.2); RDW Standard Deviation 47.6 fL (35.1-46.3); Red Blood Cell Count 2.77 M/mm3 (3.80-5.20); White Blood Cell Count 9.22 K/mm3 (4.00-11.30)
[2017-10-24 07:53] LABS: Albumin, Blood 1.9 g/dL (3.4-5.0); Albumin/Globulin Ratio 0.4 (0.8-1.8); Bilirubin, Total 0.2 mg/dL (0.1-1.0); Bun/Creatinine Ratio 36.7 (12.0-20.0); Calcium, Blood 8.8 mg/dL (8.5-10.1); Creatinine, Blood 1.09 mg/dL (0.40-1.00); Globulin, Blood 4.3 g/dL (2.2-4.0); Potassium, Blood 4.5 mmol/L (3.5-5.5); Total Protein, Blood 6.2 g/dL (6.4-8.2)
[2017-10-24 13:55] LABS: Stool Occult Bld Immuno 1 Positive (NEGATIVE)
[2017-10-24 15:17] LABS: Glucose, Blood 549 mg/dL (70-99)
[2017-10-24 18:18] LABS: Glucose, Blood 512 mg/dL (70-99)
[2017-10-25 05:46] LABS: BASOPHILS ABSOLUTE AUTO 0.02 K/mm3 (0.00-0.23); BASOPHILS PERCENT AUTO 0 % (0-2); EOSINOPHILS PERCENT AUTO 0 % (0-6); Hematocrit 26.4 % (33.0-51.0); Hemoglobin 8.6 g/dL (11.5-16.0); IMMATURE GRAN ABSOLUTE AUTO 0.44 K/mm3 (0.00-0.10); IMMATURE GRAN PERCENT AUTO 3 % (0-1); LYMPHOCYTES ABSOLUTE AUTO 1.19 K/mm3 (0.84-5.20); LYMPHOCYTES PERCENT AUTO 9 % (21-46); MONOCYTES ABSOLUTE AUTO 0.79 K/mm3 (0.16-1.47); MONOCYTES PERCENT AUTO 6 % (4-13); Mean Corpuscular HGB 28.7 pg (26.0-34.0); Mean Corpuscular HGB Conc 32.6 g/dL (31.5-36.5); Mean Corpuscular Volume 88 fL (80-100); Mean Platelet Volume 10.5 fL (9.1-12.4); NEUTROPHILS ABSOLUTE AUTO 11.53 K/mm3 (1.96-9.15); NEUTROPHILS PERCENT AUTO 83 % (41-73); Platelet Count 307 K/mm3 (150-400); RDW Coefficient Variation 15.2 % (11.7-14.2); RDW Standard Deviation 48.7 fL (35.1-46.3); White Blood Cell Count 13.97 K/mm3 (4.00-11.30)
[2017-10-25 06:00] LABS: International Normalized Ratio 1.03; Prothrombin Time Results 10.7 Sec (9.7-11.5)
[2017-10-25 06:06] LABS: Albumin/Globulin Ratio 0.5 (0.8-1.8); Bilirubin, Total 0.2 mg/dL (0.1-1.0); Bun/Creatinine Ratio 44.2 (12.0-20.0); Calcium, Blood 8.9 mg/dL (8.5-10.1); Creatinine, Blood 1.2 mg/dL (0.40-1.00); Globulin, Blood 3.9 g/dL (2.2-4.0); Potassium, Blood 4.7 mmol/L (3.5-5.5); Total Protein, Blood 5.9 g/dL (6.4-8.2)
[2017-10-26 11:49] LABS: BASOPHILS ABSOLUTE AUTO 0.02 K/mm3 (0.00-0.23); BASOPHILS PERCENT AUTO 0 % (0-2); EOSINOPHILS ABSOLUTE AUTO 0.14 K/mm3 (0.00-0.68); EOSINOPHILS PERCENT AUTO 1 % (0-6); Hematocrit 28.4 % (33.0-51.0); IMMATURE GRAN ABSOLUTE AUTO 0.59 K/mm3 (0.00-0.10); IMMATURE GRAN PERCENT AUTO 4 % (0-1); LYMPHOCYTES ABSOLUTE AUTO 2.08 K/mm3 (0.84-5.20); LYMPHOCYTES PERCENT AUTO 14 % (21-46); MONOCYTES ABSOLUTE AUTO 1.07 K/mm3 (0.16-1.47); MONOCYTES PERCENT AUTO 7 % (4-13); Mean Corpuscular HGB Conc 31.7 g/dL (31.5-36.5); Mean Corpuscular Volume 88 fL (80-100); NEUTROPHILS ABSOLUTE AUTO 10.89 K/mm3 (1.96-9.15); NEUTROPHILS PERCENT AUTO 74 % (41-73); Platelet Count 361 K/mm3 (150-400); RDW Coefficient Variation 15.1 % (11.7-14.2); RDW Standard Deviation 49.1 fL (35.1-46.3); Red Blood Cell Count 3.22 M/mm3 (3.80-5.20); White Blood Cell Count 14.79 K/mm3 (4.00-11.30)
[2017-10-26 12:05] LABS: Albumin, Blood 2.1 g/dL (3.4-5.0); Albumin/Globulin Ratio 0.6 (0.8-1.8); Bilirubin, Total 0.3 mg/dL (0.1-1.0); Bun/Creatinine Ratio 40.2 (12.0-20.0); Calcium, Blood 8.8 mg/dL (8.5-10.1); Creatinine, Blood 1.12 mg/dL (0.40-1.00); Globulin, Blood 3.8 g/dL (2.2-4.0); Potassium, Blood 4.7 mmol/L (3.5-5.5); Total Protein, Blood 5.9 g/dL (6.4-8.2)
[2017-10-26] MEDS ORDERED: NYSTATIN1 EAC1 TOP (16:07)
[2017-10-26] MEDS ORDERED: INSU100I6 (16:07)
== END 2017-10-26 16:11 | DRG 871 ==
LOC: ER 15:58 → MEDS 18:12 → ENPENDDIS 10-26 15:46 → MEDS 10-26 16:11
PROVIDERS: Emergency Medicine; Family Medicine; Hospitalist; Internal Medicine; Internal Medicine Endocrinology, Diabetes & Metabolism; Internal Medicine Gastroenterology
PROC: 0DJ08ZZ Inspection of Upper Intestinal Tract, Via Natural or Artificial Opening Endoscopic (ICD-10-PCS; principal; 2017-10-26 17:00)
DX: A41.01 Sepsis due to Methicillin susceptible Staphylococcus aureus (principal); J15.211 Pneumonia due to Methicillin susceptible Staphylococcus aureus; G92 Toxic encephalopathy; N39.0 Urinary tract infection, site not specified; T83.518A Infection and inflammatory reaction due to other urinary catheter, initial encounter; J44.0 Chronic obstructive pulmonary disease with (acute) lower respiratory infection; J44.1 Chronic obstructive pulmonary disease with (acute) exacerbation; J96.11 Chronic respiratory failure with hypoxia; I69.951 Hemiplegia and hemiparesis following unspecified cerebrovascular disease affecting right dominant side; K50.90 Crohn's disease, unspecified, without complications; K92.2 Gastrointestinal hemorrhage, unspecified; R65.20 Severe sepsis without septic shock; Z87.891 Personal history of nicotine dependence; Z99.81 Dependence on supplemental oxygen; I25.10 Atherosclerotic heart disease of native coronary artery without angina pectoris; I69.920 Aphasia following unspecified cerebrovascular disease; E11.43 Type 2 diabetes mellitus with diabetic autonomic (poly)neuropathy; E11.65 Type 2 diabetes mellitus with hyperglycemia; K31.84 Gastroparesis; E11.42 Type 2 diabetes mellitus with diabetic polyneuropathy; D63.8 Anemia in other chronic diseases classified elsewhere; E11.22 Type 2 diabetes mellitus with diabetic chronic kidney disease; I12.9 Hypertensive chronic kidney disease with stage 1 through stage 4 chronic kidney disease, or unspecified chronic kidney disease; N18.3 Chronic kidney disease, stage 3 (moderate); E78.5 Hyperlipidemia, unspecified; F32.9 Major depressive disorder, single episode, unspecified; M81.0 Age-related osteoporosis without current pathological fracture; E55.9 Vitamin D deficiency, unspecified; G89.29 Other chronic pain; K21.9 Gastro-esophageal reflux disease without esophagitis; K44.9 Diaphragmatic hernia without obstruction or gangrene; E11.51 Type 2 diabetes mellitus with diabetic peripheral angiopathy without gangrene; B37.2 Candidiasis of skin and nail; E66.3 Overweight; D50.0 Iron deficiency anemia secondary to blood loss (chronic); M62.81 Muscle weakness (generalized); E87.6 Hypokalemia; K31.89 Other diseases of stomach and duodenum; K22.8 Other specified diseases of esophagus; B96.1 Klebsiella pneumoniae [K. pneumoniae] as the cause of diseases classified elsewhere; Z88.5 Allergy status to narcotic agent; Z88.0 Allergy status to penicillin; Z88.2 Allergy status to sulfonamides; Z86.010 Personal history of colon polyps; Z79.2 Long term (current) use of antibiotics; Z79.02 Long term (current) use of antithrombotics/antiplatelets; Z79.82 Long term (current) use of aspirin; Z86.718 Personal history of other venous thrombosis and embolism; Z95.828 Presence of other vascular implants and grafts; Z79.4 Long term (current) use of insulin; Z79.891 Long term (current) use of opiate analgesic; Z79.51 Long term (current) use of inhaled steroids; Z79.899 Other long term (current) drug therapy; Z68.28 Body mass index [BMI] 28.0-28.9, adult
CPT/HCPCS: 36415; 36600; 51701; 51702; 70450; 70551; 71046; 80048; 80053; 80069; 80202; 81001; 82274; 82803; 82947; 83605; 83735; 84100; 85007; 85025; 85027; 85610; 85730; 86787; 87040; 87070; 87077; 87086; 87147; 87186; 87205; 87507; 87804; 92526; 92610; 93005; 93010; 94640; 94760; 96374; 97110; 97162; 97166; 97530; 99285; C1751; G8978; G8979; G8987; G8988; G8996; G8997; G8998; J0133; J0456; J0696; J1450; J1650; J1815; J1817; J1956; J2185; J2405; J2930; J3370; J3480; J7030; J7050; J7120

== ENCOUNTER → 2017-11-28 | Outpatient (CLI) | payer MEDICARE, OTHER ==
[~2017-11-28] MED LIST changes: +BISA10S PR; +CEFU250T47 PO; +CVS DISPOSABLE399 ML PR; +Ferrous Sulfat325 M2 PO; +Micro-K10 MEQ PO; +Milk Of Ma400 MG/5 M PO; +NYSTATIN1 EAC1 TOP; -Norco 10-325 T1 EACH PO; +Norco 5-325 Ta1 EACH PO
== END | disposition home or self-care (01) ==
LOC: LAB EV 16:15 → LAB SHORT 16:15
DX: R30.0 Dysuria (principal)
CPT/HCPCS: 87086

== ENCOUNTER 2017-11-30 11:28 | Observation (INO) | payer MEDICARE, OTHER ==
[~2017-11-30] VITALS: Ht 160 cm; Wt 75.2 kg
[~2017-11-30 11:28] MED LIST changes: -BISA10S PR; -CEFU250T47 PO; -CVS DISPOSABLE399 ML PR; -Ferrous Sulfat325 M2 PO; -Micro-K10 MEQ PO; -Milk Of Ma400 MG/5 M PO
[2017-11-30 12:32] LABS: Source, Urine Catheter
[2017-11-30 12:44] LABS: Appearance, Urine Hazy (Clear); Bilirubin, Urine Neg (Neg); Blood, Urine 2+ (Neg); Color, Urine Yellow (P-Yellow); Glucose Qualitative, Urine Neg (Neg); Ketones, Urine Neg (Neg); Leukocyte Esterase, Urine 3+ (Neg); Nitrite, Urine Pos (Neg); Protein, Urine 1+ (Neg); Urobilinogen, Urine NORM (Normal)
[2017-11-30 12:56] LABS: Bacteria Many /hpf; Squamous Epithelial Cells Not Seen /hpf (Few); Transitional Epithelial Cells Mod /hpf ([, 0-Rare]); White Blood Cells, Urine TNTC /hpf (0-5)
[2017-11-30] MEDS ORDERED: CEFU250T47 PO (21:26)
[2017-11-30] MEDS ORDERED: BISA10S PR (21:27)
[2017-11-30] MEDS ORDERED: CVS DISPOSABLE399 ML PR (21:28)
[2017-11-30] MEDS ORDERED: FURO40 PO (21:32)
[2017-11-30] MEDS ORDERED: Milk Of Ma400 MG/5 M PO (21:33)
[2017-11-30] MEDS ORDERED: Micro-K10 MEQ PO (21:36)
[2017-12-01 05:10] LABS: BASOPHILS ABSOLUTE AUTO 0.04 K/mm3 (0.00-0.23); BASOPHILS PERCENT AUTO 1 % (0-2); EOSINOPHILS ABSOLUTE AUTO 0.07 K/mm3 (0.00-0.68); EOSINOPHILS PERCENT AUTO 1 % (0-6); Hematocrit 27.1 % (33.0-51.0); Hemoglobin 8.4 g/dL (11.5-16.0); IMMATURE GRAN ABSOLUTE AUTO 0.04 K/mm3 (0.00-0.10); IMMATURE GRAN PERCENT AUTO 1 % (0-1); LYMPHOCYTES ABSOLUTE AUTO 2.19 K/mm3 (0.84-5.20); LYMPHOCYTES PERCENT AUTO 31 % (21-46); MONOCYTES ABSOLUTE AUTO 0.77 K/mm3 (0.16-1.47); MONOCYTES PERCENT AUTO 11 % (4-13); Mean Corpuscular HGB 27.8 pg (26.0-34.0); Mean Platelet Volume 9.8 fL (9.1-12.4); NEUTROPHILS ABSOLUTE AUTO 3.89 K/mm3 (1.96-9.15); NEUTROPHILS PERCENT AUTO 56 % (41-73); Platelet Count 324 K/mm3 (150-400); RDW Coefficient Variation 15.4 % (11.7-14.2); RDW Standard Deviation 50.2 fL (35.1-46.3); Red Blood Cell Count 3.02 M/mm3 (3.80-5.20)
[2017-12-01 05:18] LABS: Mean Corpuscular Volume 90 fL (80-100)
[2017-12-01 05:39] LABS: Bun/Creatinine Ratio 16.1 (12.0-20.0); Creatinine, Blood 1.37 mg/dL (0.40-1.00); Potassium, Blood 3.9 mmol/L (3.5-5.5)
[2017-12-01 08:24] LABS: Percent Saturation 27.3 % (15.0-50.0)
[2017-12-01] MEDS ORDERED: DOCU100 PO (09:34)
[2017-12-01] MEDS ORDERED: Ferrous Sulfat325 M2 PO (09:35)
[2017-12-01] MEDS ORDERED: GUAI600T33 PO (09:38)
[2017-12-01] MEDS ORDERED: PRED20 PO (09:38)
== END 2017-12-01 11:10 | disposition home or self-care (01) ==
LOC: ER 11:28 → MEDS 11:29 → ENPENDDIS 12-01 07:56 → MEDS 12-01 11:10
PROVIDERS: Physician Assistant; Student in an Organized Health Care Education/Training Program
DX: N39.0 Urinary tract infection, site not specified (principal); J44.9 Chronic obstructive pulmonary disease, unspecified; I12.9 Hypertensive chronic kidney disease with stage 1 through stage 4 chronic kidney disease, or unspecified chronic kidney disease; E11.22 Type 2 diabetes mellitus with diabetic chronic kidney disease; N18.3 Chronic kidney disease, stage 3 (moderate); D63.1 Anemia in chronic kidney disease; D53.9 Nutritional anemia, unspecified; I65.29 Occlusion and stenosis of unspecified carotid artery; E78.5 Hyperlipidemia, unspecified; I25.10 Atherosclerotic heart disease of native coronary artery without angina pectoris; K50.90 Crohn's disease, unspecified, without complications; M19.90 Unspecified osteoarthritis, unspecified site; E11.51 Type 2 diabetes mellitus with diabetic peripheral angiopathy without gangrene; G89.29 Other chronic pain; M81.0 Age-related osteoporosis without current pathological fracture; F32.9 Major depressive disorder, single episode, unspecified; Z86.718 Personal history of other venous thrombosis and embolism; Z87.19 Personal history of other diseases of the digestive system; Z87.891 Personal history of nicotine dependence; Z88.0 Allergy status to penicillin; Z88.2 Allergy status to sulfonamides; Z86.73 Personal history of transient ischemic attack (TIA), and cerebral infarction without residual deficits; Z87.440 Personal history of urinary (tract) infections; Z88.5 Allergy status to narcotic agent; Z79.4 Long term (current) use of insulin; Z79.899 Other long term (current) drug therapy; Z86.010 Personal history of colon polyps
CPT/HCPCS: 36415; 80048; 81001; 82728; 82947; 83540; 83550; 83605; 84484; 85025; 87040; 87077; 87086; 87186; 93005; 93010; 94640; 94760; 96365; 96372; 99285; G0378; J1650; J1815; J1956

== ENCOUNTER → 2017-11-30 | Outpatient (CLI) | payer MEDICARE, OTHER ==
[2017-11-30 10:08] LABS: BASOPHILS ABSOLUTE AUTO 0.03 K/mm3 (0.00-0.23); BASOPHILS PERCENT AUTO 0 % (0-2); EOSINOPHILS ABSOLUTE AUTO 0.04 K/mm3 (0.00-0.68); EOSINOPHILS PERCENT AUTO 0 % (0-6); Hematocrit 30.6 % (33.0-51.0); Hemoglobin 9.7 g/dL (11.5-16.0); IMMATURE GRAN ABSOLUTE AUTO 0.04 K/mm3 (0.00-0.10); IMMATURE GRAN PERCENT AUTO 0 % (0-1); LYMPHOCYTES ABSOLUTE AUTO 1.64 K/mm3 (0.84-5.20); LYMPHOCYTES PERCENT AUTO 18 % (21-46); MONOCYTES ABSOLUTE AUTO 0.65 K/mm3 (0.16-1.47); MONOCYTES PERCENT AUTO 7 % (4-13); Mean Corpuscular HGB 27.6 pg (26.0-34.0); Mean Corpuscular HGB Conc 31.7 g/dL (31.5-36.5); Mean Corpuscular Volume 87 fL (80-100); Mean Platelet Volume 9.8 fL (9.1-12.4); NEUTROPHILS ABSOLUTE AUTO 6.62 K/mm3 (1.96-9.15); NEUTROPHILS PERCENT AUTO 74 % (41-73); Platelet Count 363 K/mm3 (150-400); RDW Coefficient Variation 15.2 % (11.7-14.2); Red Blood Cell Count 3.52 M/mm3 (3.80-5.20); White Blood Cell Count 9.02 K/mm3 (4.00-11.30)
[2017-11-30 10:15] LABS: Albumin, Blood 3.3 g/dL (3.4-5.0); Albumin/Globulin Ratio 0.8 (0.8-1.8); Bilirubin, Total 0.4 mg/dL (0.1-1.0); Bun/Creatinine Ratio 13.6 (12.0-20.0); Calcium, Blood 8.9 mg/dL (8.5-10.1); Creatinine, Blood 1.4 mg/dL (0.40-1.00); Globulin, Blood 4.2 g/dL (2.2-4.0); Potassium, Blood 4.2 mmol/L (3.5-5.5); Total Protein, Blood 7.5 g/dL (6.4-8.2)
== END | disposition home or self-care (01) ==
LOC: LAB EV 09:57 → LAB SHORT 09:57
PROVIDERS: Physician Assistant
DX: I50.9 Heart failure, unspecified (principal); R05 Cough
CPT/HCPCS: 80053; 83880; 85025

== ENCOUNTER 2018-01-01 18:08 | Emergency (ER) | payer MEDICARE, OTHER ==
[~2018-01-01] VITALS: Ht 160 cm; Wt 81.2 kg
[~2018-01-01 18:08] MED LIST changes: +BISA10S PR; +CEFU250T47 PO; +CVS DISPOSABLE399 ML PR; +Ferrous Sulfat325 M2 PO; +Micro-K10 MEQ PO; +Milk Of Ma400 MG/5 M PO
[2018-01-01] MEDS ORDERED: CEPH500 PO (18:46)
== END 2018-01-01 19:58 | disposition home or self-care (01) ==
LOC: ER 18:08
DX: L03.116 Cellulitis of left lower limb (principal); Z23 Encounter for immunization; J44.9 Chronic obstructive pulmonary disease, unspecified; E11.40 Type 2 diabetes mellitus with diabetic neuropathy, unspecified; E11.22 Type 2 diabetes mellitus with diabetic chronic kidney disease; N18.3 Chronic kidney disease, stage 3 (moderate); D63.1 Anemia in chronic kidney disease; F32.9 Major depressive disorder, single episode, unspecified; K21.9 Gastro-esophageal reflux disease without esophagitis; I25.10 Atherosclerotic heart disease of native coronary artery without angina pectoris; Z86.73 Personal history of transient ischemic attack (TIA), and cerebral infarction without residual deficits; Z88.0 Allergy status to penicillin; Z88.2 Allergy status to sulfonamides; Z88.5 Allergy status to narcotic agent; Z79.899 Other long term (current) drug therapy; Z79.4 Long term (current) use of insulin; Z79.52 Long term (current) use of systemic steroids
CPT/HCPCS: 90714; 96372; 96374; 99283-25; J0696

== ENCOUNTER 2018-03-23 13:25 | Inpatient (IN) | payer MEDICARE, OTHER ==
[~2018-03-23] VITALS: Ht 162.6 cm; Wt 81.4 kg
[2018-03-23 13:53] LABS: Source, Urine Clean Catch
[2018-03-23 14:06] LABS: Bilirubin, Urine Neg (Neg); Blood, Urine 1+ (Neg); Glucose Qualitative, Urine Neg (Neg); Ketones, Urine Neg (Neg); Leukocyte Esterase, Urine 3+ (Neg); Nitrite, Urine Pos (Neg); Protein, Urine Neg (Neg); Urobilinogen, Urine NORM (Normal)
[2018-03-23 14:08] LABS: BASOPHILS PERCENT AUTO 0 % (0-2); EOSINOPHILS ABSOLUTE AUTO 0.03 K/mm3 (0.00-0.68); EOSINOPHILS PERCENT AUTO 0 % (0-6); Hematocrit 36.8 % (33.0-51.0); Hemoglobin 11.4 g/dL (11.5-16.0); IMMATURE GRAN ABSOLUTE AUTO 0.18 K/mm3 (0.00-0.10); IMMATURE GRAN PERCENT AUTO 1 % (0-1); LYMPHOCYTES ABSOLUTE AUTO 2.79 K/mm3 (0.84-5.20); LYMPHOCYTES PERCENT AUTO 11 % (21-46); MONOCYTES ABSOLUTE AUTO 1.26 K/mm3 (0.16-1.47); MONOCYTES PERCENT AUTO 5 % (4-13); Mean Corpuscular HGB 26.5 pg (26.0-34.0); Mean Corpuscular Volume 85 fL (80-100); Mean Platelet Volume 11.2 fL (9.1-12.4); NEUTROPHILS ABSOLUTE AUTO 20.61 K/mm3 (1.96-9.15); NEUTROPHILS PERCENT AUTO 83 % (41-73); Platelet Count 299 K/mm3 (150-400); RDW Coefficient Variation 15.9 % (11.7-14.2); RDW Standard Deviation 49.4 fL (35.1-46.3); Red Blood Cell Count 4.31 M/mm3 (3.80-5.20); White Blood Cell Count 24.97 K/mm3 (4.00-11.30)
[2018-03-23 14:14] LABS: Appearance, Urine Hazy (Clear); Color, Urine Yellow (P-Yellow)
[2018-03-23 14:15] LABS: Bacteria Many /hpf; Red Blood Cells, Urine 0-2 /hpf (0-2); Squamous Epithelial Cells Rare /hpf (Few)
[2018-03-23 14:17] LABS: Albumin, Blood 3.4 g/dL (3.4-5.0); Albumin/Globulin Ratio 0.8 (0.8-1.8); Bilirubin, Total 0.6 mg/dL (0.1-1.0); Bun/Creatinine Ratio 27.6 (12.0-20.0); Calcium, Blood 9.2 mg/dL (8.5-10.1); Creatinine, Blood 1.56 mg/dL (0.40-1.00); Globulin, Blood 4.5 g/dL (2.2-4.0); Potassium, Blood 4.2 mmol/L (3.5-5.5); Total Protein, Blood 7.9 g/dL (6.4-8.2)
[2018-03-23] MEDS ORDERED: Apriso0.375 GM PO (21:59)
[2018-03-23] MEDS ORDERED: CHOL10002 PO (22:01)
[2018-03-23] MEDS ORDERED: DOCU100 PO (22:03)
[2018-03-23] MEDS ORDERED: DOXERCALCIFER0.5 MCG PO (22:06)
[2018-03-23] MEDS ORDERED: CLOP75 PO (22:08)
[2018-03-23] MEDS ORDERED: VIT1CAPS12 PO (22:16)
[2018-03-23] MEDS ORDERED: ATOR20 PO (22:18)
[2018-03-23] MEDS ORDERED: FURO40 PO (22:21)
[2018-03-23] MEDS ORDERED: Nitrofurantoin50 MG PO (22:23)
[2018-03-23] MEDS ORDERED: HYDR1TAB94 PO (22:25)
[2018-03-23] MEDS ORDERED: NEBI5 PO (22:27)
[2018-03-23] MEDS ORDERED: AMLO5 PO (22:28)
[2018-03-23] MEDS ORDERED: MINO100 PO (22:31)
[2018-03-23] MEDS ORDERED: MIRT15 PO (22:33)
[2018-03-23] MEDS ORDERED: GABA300 PO (22:34)
[2018-03-23] MEDS ORDERED: METO25 PO (22:37)
[2018-03-23] MEDS ORDERED: ATOR40TA PO (22:38)
[2018-03-23] MEDS ORDERED: LOSA50 PO (22:40)
[2018-03-23] MEDS ORDERED: FERSU90EL PO (22:42)
[2018-03-24 05:48] LABS: Hematocrit 31.6 % (33.0-51.0); Hemoglobin 9.6 g/dL (11.5-16.0); Mean Corpuscular HGB 26.4 pg (26.0-34.0); Mean Corpuscular HGB Conc 30.4 g/dL (31.5-36.5); Mean Corpuscular Volume 87 fL (80-100); Mean Platelet Volume 11.5 fL (9.1-12.4); Platelet Count 254 K/mm3 (150-400); RDW Coefficient Variation 16.4 % (11.7-14.2); RDW Standard Deviation 52.3 fL (35.1-46.3); Red Blood Cell Count 3.64 M/mm3 (3.80-5.20)
[2018-03-24 06:09] LABS: Alanine Aminotransfer (ALT/SGP 18 U/L (12-78); Albumin, Blood 2.7 g/dL (3.4-5.0); Albumin/Globulin Ratio 0.6 (0.8-1.8); Alk Phos 101 U/L (50-136); Anion Gap 11 mmol/L (6-16); Aspartate Aminotrans (AST/SGOT 17 U/L (12-37); Bilirubin, Total 0.6 mg/dL (0.1-1.0); Blood Urea Nitrogen 39 mg/dL (8-24); Bun/Creatinine Ratio 23.5 (12.0-20.0); CO2, Blood 22 mmol/L (21-32); CPK Creatine Kinase 57 U/L (26-193); Calcium, Blood 8.5 mg/dL (8.5-10.1); Chloride, Blood 107 mmol/L (98-108); Creatinine, Blood 1.66 mg/dL (0.40-1.00); Globulin, Blood 4.2 g/dL (2.2-4.0); Glomerular Filtration Rate 31 (60-); Glucose, Blood 181 mg/dL (70-99); Potassium, Blood 3.8 mmol/L (3.5-5.5); Sodium, Blood 140 mmol/L (136-145); Total Protein, Blood 6.9 g/dL (6.4-8.2); Troponin I <0.015 ng/mL (0.000-0.040)
[2018-03-24 06:15] LABS: Creatine Kinase MB < 1.0 ng/mL (0.0-3.6); Creatine Kinase MB Index 1.8 (0.0-4.0)
[2018-03-24 06:16] LABS: BAND PERCENT MAN 13 % (0-8); BASOPHILS PERCENT MAN 0 % (0-2); EOSINOPHILS PERCENT MAN 0 % (0-6); LYMPHOCYTES ABSOLUTE MAN 1.15 K/mm3 (0.84-5.20); LYMPHOCYTES PERCENT MAN 3 % (21-46); MONOCYTES ABSOLUTE MAN 1.15 K/mm3 (0.16-1.47); MONOCYTES PERCENT MAN 3 % (4-13); NEUTROPHILS ABSOLUTE MAN 36.28 K/mm3 (1.96-9.15); SEG NEUTROPHILS PERCENT MAN 81 % (41-73); TOTAL CELLS COUNTED 100
[2018-03-25 05:10] LABS: BASOPHILS ABSOLUTE AUTO 0.04 K/mm3 (0.00-0.23); BASOPHILS PERCENT AUTO 0 % (0-2); EOSINOPHILS PERCENT AUTO 0 % (0-6); Hematocrit 26.1 % (33.0-51.0); IMMATURE GRAN ABSOLUTE AUTO 0.49 K/mm3 (0.00-0.10); IMMATURE GRAN PERCENT AUTO 2 % (0-1); LYMPHOCYTES ABSOLUTE AUTO 1.62 K/mm3 (0.84-5.20); LYMPHOCYTES PERCENT AUTO 6 % (21-46); MONOCYTES ABSOLUTE AUTO 1.23 K/mm3 (0.16-1.47); MONOCYTES PERCENT AUTO 4 % (4-13); Mean Corpuscular HGB 26.4 pg (26.0-34.0); Mean Corpuscular HGB Conc 30.7 g/dL (31.5-36.5); Mean Corpuscular Volume 86 fL (80-100); Mean Platelet Volume 11.6 fL (9.1-12.4); NEUTROPHILS ABSOLUTE AUTO 25.01 K/mm3 (1.96-9.15); NEUTROPHILS PERCENT AUTO 88 % (41-73); Platelet Count 206 K/mm3 (150-400); RDW Coefficient Variation 16.8 % (11.7-14.2); RDW Standard Deviation 53.4 fL (35.1-46.3); Red Blood Cell Count 3.03 M/mm3 (3.80-5.20); White Blood Cell Count 28.39 K/mm3 (4.00-11.30)
[2018-03-25 05:35] LABS: Albumin, Blood 2.1 g/dL (3.4-5.0); Anion Gap 8 mmol/L (6-16); Blood Urea Nitrogen 39 mg/dL (8-24); Bun/Creatinine Ratio 20.6 (12.0-20.0); CO2, Blood 22 mmol/L (21-32); Calcium, Blood 7.9 mg/dL (8.5-10.1); Chloride, Blood 111 mmol/L (98-108); Creatinine, Blood 1.89 mg/dL (0.40-1.00); Glomerular Filtration Rate 27 (60-); Glucose, Blood 219 mg/dL (70-99); Phosphorus, Blood 3.1 mg/dL (2.5-4.9); Potassium, Blood 3.9 mmol/L (3.5-5.5); Sodium, Blood 141 mmol/L (136-145)
[2018-03-25 06:34] LABS: Source, Urine Catheter
[2018-03-25 06:40] LABS: Bilirubin, Urine Neg (Neg); Blood, Urine 5+ (Neg); Glucose Qualitative, Urine Neg (Neg); Ketones, Urine Neg (Neg); Leukocyte Esterase, Urine 2+ (Neg); Nitrite, Urine Neg (Neg); Protein, Urine 3+ (Neg); Urobilinogen, Urine NORM (Normal)
[2018-03-25 06:47] LABS: Appearance, Urine Hazy (Clear); Color, Urine Yellow (P-Yellow)
[2018-03-25 06:48] LABS: Amorphous Mod (0-Heavy); Bacteria Few /hpf; Mucus Light (0-Heavy); Squamous Epithelial Cells Rare /hpf (Few)
[2018-03-26 08:31] LABS: Hematocrit 25.8 % (33.0-51.0); Hemoglobin 7.8 g/dL (11.5-16.0); Mean Corpuscular HGB 26.3 pg (26.0-34.0); Mean Corpuscular HGB Conc 30.2 g/dL (31.5-36.5); Mean Corpuscular Volume 87 fL (80-100); Mean Platelet Volume 11.4 fL (9.1-12.4); Platelet Count 186 K/mm3 (150-400); RDW Coefficient Variation 16.9 % (11.7-14.2); RDW Standard Deviation 54.1 fL (35.1-46.3); Red Blood Cell Count 2.97 M/mm3 (3.80-5.20); White Blood Cell Count 19.52 K/mm3 (4.00-11.30)
[2018-03-26 08:48] LABS: Albumin/Globulin Ratio 0.5 (0.8-1.8); Bilirubin, Total 0.4 mg/dL (0.1-1.0); Bun/Creatinine Ratio 19.3 (12.0-20.0); Calcium, Blood 8.1 mg/dL (8.5-10.1); Creatinine, Blood 1.35 mg/dL (0.40-1.00); Globulin, Blood 3.9 g/dL (2.2-4.0); Total Protein, Blood 5.9 g/dL (6.4-8.2)
[2018-03-28 05:50] LABS: BASOPHILS ABSOLUTE AUTO 0.04 K/mm3 (0.00-0.23); BASOPHILS PERCENT AUTO 0 % (0-2); EOSINOPHILS ABSOLUTE AUTO 0.17 K/mm3 (0.00-0.68); EOSINOPHILS PERCENT AUTO 1 % (0-6); Hematocrit 25.5 % (33.0-51.0); Hemoglobin 7.7 g/dL (11.5-16.0); IMMATURE GRAN ABSOLUTE AUTO 0.29 K/mm3 (0.00-0.10); IMMATURE GRAN PERCENT AUTO 2 % (0-1); LYMPHOCYTES ABSOLUTE AUTO 1.18 K/mm3 (0.84-5.20); LYMPHOCYTES PERCENT AUTO 8 % (21-46); MONOCYTES ABSOLUTE AUTO 1.05 K/mm3 (0.16-1.47); MONOCYTES PERCENT AUTO 8 % (4-13); Mean Corpuscular HGB 26.9 pg (26.0-34.0); Mean Corpuscular HGB Conc 30.2 g/dL (31.5-36.5); Mean Corpuscular Volume 89 fL (80-100); Mean Platelet Volume 11.6 fL (9.1-12.4); NEUTROPHILS ABSOLUTE AUTO 11.27 K/mm3 (1.96-9.15); NEUTROPHILS PERCENT AUTO 81 % (41-73); Platelet Count 191 K/mm3 (150-400); RDW Coefficient Variation 17.7 % (11.7-14.2); Red Blood Cell Count 2.86 M/mm3 (3.80-5.20)
[2018-03-28 06:25] LABS: Bun/Creatinine Ratio 21.8 (12.0-20.0); Calcium, Blood 8.6 mg/dL (8.5-10.1); Creatinine, Blood 1.33 mg/dL (0.40-1.00); Potassium, Blood 4.2 mmol/L (3.5-5.5)
[2018-03-29 05:38] LABS: Hematocrit 28.5 % (33.0-51.0); Hemoglobin 9.4 g/dL (11.5-16.0)
[2018-03-30 04:59] LABS: Hematocrit 29.8 % (33.0-51.0); Hemoglobin 9.4 g/dL (11.5-16.0); Mean Corpuscular HGB 27.2 pg (26.0-34.0); Mean Corpuscular HGB Conc 31.5 g/dL (31.5-36.5); Mean Platelet Volume 10.8 fL (9.1-12.4); Platelet Count 214 K/mm3 (150-400); RDW Coefficient Variation 16.5 % (11.7-14.2); RDW Standard Deviation 52.8 fL (35.1-46.3); Red Blood Cell Count 3.46 M/mm3 (3.80-5.20); White Blood Cell Count 9.95 K/mm3 (4.00-11.30)
[2018-03-30 05:00] LABS: Mean Corpuscular Volume 86 fL (80-100)
[2018-03-30 05:16] LABS: Albumin/Globulin Ratio 0.5 (0.8-1.8); Bilirubin, Total 0.5 mg/dL (0.1-1.0); Bun/Creatinine Ratio 29.2 (12.0-20.0); Creatinine, Blood 1.3 mg/dL (0.40-1.00); Globulin, Blood 4.3 g/dL (2.2-4.0); Potassium, Blood 4.2 mmol/L (3.5-5.5); Total Protein, Blood 6.3 g/dL (6.4-8.2)
[2018-03-30 05:54] LABS: BAND PERCENT MAN 1 % (0-8); BASOPHILS PERCENT MAN 0 % (0-2); EOSINOPHILS ABSOLUTE MAN 0.49 K/mm3 (0.00-0.68); EOSINOPHILS PERCENT MAN 5 % (0-6); LYMPHOCYTES ABSOLUTE MAN 1.39 K/mm3 (0.84-5.20); LYMPHOCYTES PERCENT MAN 14 % (21-46); MONOCYTES ABSOLUTE MAN 0.69 K/mm3 (0.16-1.47); MONOCYTES PERCENT MAN 7 % (4-13); MYELOCYTE ABSOLUTE MAN 0.09 K/mm3 (0.00-0.00); MYELOCYTE PERCENT MAN 1 % (0-0); NEUTROPHILS ABSOLUTE MAN 7.26 K/mm3 (1.96-9.15); SEG NEUTROPHILS PERCENT MAN 72 % (41-73); TOTAL CELLS COUNTED 100
[2018-04-01 05:43] LABS: Bun/Creatinine Ratio 34.5 (12.0-20.0); Calcium, Blood 9.1 mg/dL (8.5-10.1); Creatinine, Blood 1.1 mg/dL (0.40-1.00); Potassium, Blood 4.5 mmol/L (3.5-5.5)
[2018-04-01 05:47] LABS: BASOPHILS ABSOLUTE AUTO 0.07 K/mm3 (0.00-0.23); BASOPHILS PERCENT AUTO 1 % (0-2); EOSINOPHILS ABSOLUTE AUTO 0.24 K/mm3 (0.00-0.68); EOSINOPHILS PERCENT AUTO 2 % (0-6); Hemoglobin 10.7 g/dL (11.5-16.0); IMMATURE GRAN ABSOLUTE AUTO 0.91 K/mm3 (0.00-0.10); IMMATURE GRAN PERCENT AUTO 7 % (0-1); LYMPHOCYTES ABSOLUTE AUTO 1.65 K/mm3 (0.84-5.20); LYMPHOCYTES PERCENT AUTO 13 % (21-46); MONOCYTES ABSOLUTE AUTO 1.09 K/mm3 (0.16-1.47); MONOCYTES PERCENT AUTO 9 % (4-13); Mean Corpuscular HGB 27.6 pg (26.0-34.0); Mean Corpuscular HGB Conc 31.5 g/dL (31.5-36.5); Mean Corpuscular Volume 88 fL (80-100); Mean Platelet Volume 10.6 fL (9.1-12.4); NEUTROPHILS ABSOLUTE AUTO 8.82 K/mm3 (1.96-9.15); NEUTROPHILS PERCENT AUTO 69 % (41-73); Platelet Count 261 K/mm3 (150-400); RDW Standard Deviation 51.2 fL (35.1-46.3); Red Blood Cell Count 3.87 M/mm3 (3.80-5.20); White Blood Cell Count 12.78 K/mm3 (4.00-11.30)
[2018-04-01 06:07] LABS: BAND PERCENT MAN 1 % (0-8); BASOPHILS PERCENT MAN 0 % (0-2); EOSINOPHILS ABSOLUTE MAN 0.12 K/mm3 (0.00-0.68); EOSINOPHILS PERCENT MAN 1 % (0-6); LYMPHOCYTES ABSOLUTE MAN 1.91 K/mm3 (0.84-5.20); LYMPHOCYTES PERCENT MAN 15 % (21-46); METAMYELOCYTE ABSOLUTE MAN 0.25 K/mm3 (0.00-0.00); METAMYELOCYTE PERCENT MAN 2 % (0-0); MONOCYTES ABSOLUTE MAN 0.89 K/mm3 (0.16-1.47); MONOCYTES PERCENT MAN 7 % (4-13); MYELOCYTE ABSOLUTE MAN 0.25 K/mm3 (0.00-0.00); MYELOCYTE PERCENT MAN 2 % (0-0); NEUTROPHILS ABSOLUTE MAN 9.32 K/mm3 (1.96-9.15); SEG NEUTROPHILS PERCENT MAN 72 % (41-73); TOTAL CELLS COUNTED 100
[2018-04-01] MEDS ORDERED: FER-IN-SOL15 MG/1 ML PO (15:25)
[2018-04-01] MEDS ORDERED: Humalog100 UNIT/3 SC (15:30)
[2018-04-01] MEDS ORDERED: MIRALAX17 GM PO (15:33)
[2018-04-01] MEDS ORDERED: NYSTATIN1 EAC1 TOP (15:37)
== END 2018-04-01 16:11 | DRG 871 ==
LOC: ER 13:25 → MEDS 13:26 → ENPENDDIS 04-01 15:21 → MEDS 04-01 16:11
PROVIDERS: Emergency Medicine; Family Medicine; Internal Medicine
DX: A41.81 Sepsis due to Enterococcus (principal); R65.21 Severe sepsis with septic shock; I13.0 Hypertensive heart and chronic kidney disease with heart failure and stage 1 through stage 4 chronic kidney disease, or unspecified chronic kidney disease; I50.1 Left ventricular failure, unspecified; I69.851 Hemiplegia and hemiparesis following other cerebrovascular disease affecting right dominant side; J44.9 Chronic obstructive pulmonary disease, unspecified; E11.22 Type 2 diabetes mellitus with diabetic chronic kidney disease; Z99.81 Dependence on supplemental oxygen; E11.40 Type 2 diabetes mellitus with diabetic neuropathy, unspecified; N31.2 Flaccid neuropathic bladder, not elsewhere classified; I69.820 Aphasia following other cerebrovascular disease; N18.3 Chronic kidney disease, stage 3 (moderate); K21.9 Gastro-esophageal reflux disease without esophagitis; Z16.12 Extended spectrum beta lactamase (ESBL) resistance; E78.5 Hyperlipidemia, unspecified; G89.4 Chronic pain syndrome; M81.0 Age-related osteoporosis without current pathological fracture; Z79.4 Long term (current) use of insulin; Z87.891 Personal history of nicotine dependence; Z95.5 Presence of coronary angioplasty implant and graft; Z87.440 Personal history of urinary (tract) infections
CPT/HCPCS: 36415; 70450; 71046; 72100; 80048; 80053; 80069; 81001; 82550; 82553; 82947; 83605; 83880; 84484; 85014; 85018; 85025; 85027; 86850; 86900; 86901; 86923; 87040; 87077; 87086; 87186; 90686; 93005; 93010; 93308; 93321; 94640; 94760; 96365; 96366; 97110; 97163; 97167; 97530; 97535; 99285-25; G0008; G8978; G8979; G8987; G8988; J0696; J1650; J1940; J1956; J7030; J7050; P9016

== ENCOUNTER 2018-06-30 15:16 | Inpatient (IN) | payer MEDICARE, OTHER ==
[~2018-06-30] VITALS: Ht 160 cm; Wt 83.0 kg
[~2018-06-30 15:16] MED LIST changes: +BENZ100A PO; +CHOL10002 PO; +DOXERCALCIFER0.5 MCG PO; +FER-IN-SOL15 MG/1 ML PO; +FERSU90EL PO; +Ferrousul325 MG PO; +Humalog Mi100 UNIT/4 SC; +Humalog100 UNIT/3; +MIRALAX17 GM PO; +PROHEAL PO; +VIT1CAPS12 PO
[2018-06-30 16:05] LABS: BASOPHILS ABSOLUTE AUTO 0.08 K/mm3 (0.00-0.23); BASOPHILS PERCENT AUTO 0 % (0-2); EOSINOPHILS PERCENT AUTO 0 % (0-6); Hematocrit 30.8 % (33.0-51.0); Hemoglobin 9.8 g/dL (11.5-16.0); IMMATURE GRAN ABSOLUTE AUTO 0.28 K/mm3 (0.00-0.10); IMMATURE GRAN PERCENT AUTO 1 % (0-1); LYMPHOCYTES ABSOLUTE AUTO 2.04 K/mm3 (0.84-5.20); LYMPHOCYTES PERCENT AUTO 6 % (21-46); MONOCYTES ABSOLUTE AUTO 1.38 K/mm3 (0.16-1.47); MONOCYTES PERCENT AUTO 4 % (4-13); Mean Corpuscular HGB 27.6 pg (26.0-34.0); Mean Corpuscular HGB Conc 31.8 g/dL (31.5-36.5); Mean Corpuscular Volume 87 fL (80-100); Mean Platelet Volume 9.7 fL (9.1-12.4); NEUTROPHILS ABSOLUTE AUTO 33.14 K/mm3 (1.96-9.15); NEUTROPHILS PERCENT AUTO 90 % (41-73); Platelet Count 273 K/mm3 (150-400); RDW Coefficient Variation 15.1 % (11.7-14.2); RDW Standard Deviation 48.5 fL (35.1-46.3); Red Blood Cell Count 3.55 M/mm3 (3.80-5.20); White Blood Cell Count 36.92 K/mm3 (4.00-11.30)
[2018-06-30 16:09] LABS: Source, Urine Catheter
[2018-06-30 16:11] LABS: Appearance, Urine Clear (Clear); Bilirubin, Urine Neg (Neg); Blood, Urine 1+ (Neg); Color, Urine Yellow (P-Yellow); Glucose Qualitative, Urine Neg (Neg); Ketones, Urine Neg (Neg); Leukocyte Esterase, Urine 3+ (Neg); Nitrite, Urine Neg (Neg); Protein, Urine Neg (Neg); Specific Gravity, Urine 1.015 (1.003-1.022); Urobilinogen, Urine NORM (Normal)
[2018-06-30] MEDS ORDERED: FLONASE ALLERG9.9 ML (16:14)
[2018-06-30] MEDS ORDERED: FURO40 PO (16:18)
[2018-06-30 16:21] LABS: Red Blood Cells, Urine 0-2 /hpf (0-2)
[2018-06-30 16:22] LABS: Bacteria Mod /hpf; Squamous Epithelial Cells Not Seen /hpf (Few)
[2018-06-30 16:36] LABS: Alanine Aminotransfer (ALT/SGP 40 U/L (12-78); Albumin, Blood 3.2 g/dL (3.4-5.0); Albumin/Globulin Ratio 0.8 (0.8-1.8); Alk Phos 95 U/L (50-136); Anion Gap 8 mmol/L (6-16); Aspartate Aminotrans (AST/SGOT 31 U/L (12-37); Bilirubin, Total 0.7 mg/dL (0.1-1.0); Blood Urea Nitrogen 45 mg/dL (8-24); Bun/Creatinine Ratio 33.8 (12.0-20.0); CO2, Blood 30 mmol/L (21-32); Calcium, Blood 9.1 mg/dL (8.5-10.1); Chloride, Blood 92 mmol/L (98-108); Creatinine, Blood 1.33 mg/dL (0.40-1.00); Globulin, Blood 4.1 g/dL (2.2-4.0); Glomerular Filtration Rate 41 (60-); Glucose, Blood 112 mg/dL (70-99); Potassium, Blood 3.9 mmol/L (3.5-5.5); Sodium, Blood 130 mmol/L (136-145); Total Protein, Blood 7.3 g/dL (6.4-8.2); Troponin I <0.015 ng/mL (0.000-0.040)
[2018-06-30 17:28] LABS: International Normalized Ratio 1.04; Prothrombin Time Results 10.7 Sec (9.7-11.5)
--- NOTE | 2018-06-30 19:19 | NUR ---
PT ARRIVED FROM ER. ONCOMING NURSE GIVEN REPORT AT BEDSIDE. ONCOMING NURSE PRESUMING CARE.
[2018-07-01 05:18] LABS: BASOPHILS ABSOLUTE AUTO 0.05 K/mm3 (0.00-0.23); BASOPHILS PERCENT AUTO 0 % (0-2); EOSINOPHILS ABSOLUTE AUTO 0.01 K/mm3 (0.00-0.68); EOSINOPHILS PERCENT AUTO 0 % (0-6); Hematocrit 27.7 % (33.0-51.0); Hemoglobin 8.7 g/dL (11.5-16.0); IMMATURE GRAN ABSOLUTE AUTO 0.17 K/mm3 (0.00-0.10); IMMATURE GRAN PERCENT AUTO 1 % (0-1); LYMPHOCYTES ABSOLUTE AUTO 1.67 K/mm3 (0.84-5.20); LYMPHOCYTES PERCENT AUTO 6 % (21-46); MONOCYTES ABSOLUTE AUTO 1.21 K/mm3 (0.16-1.47); MONOCYTES PERCENT AUTO 4 % (4-13); Mean Corpuscular HGB 26.9 pg (26.0-34.0); Mean Corpuscular HGB Conc 31.4 g/dL (31.5-36.5); Mean Corpuscular Volume 86 fL (80-100); NEUTROPHILS ABSOLUTE AUTO 24.17 K/mm3 (1.96-9.15); NEUTROPHILS PERCENT AUTO 89 % (41-73); Platelet Count 235 K/mm3 (150-400); RDW Coefficient Variation 15.5 % (11.7-14.2); Red Blood Cell Count 3.23 M/mm3 (3.80-5.20); White Blood Cell Count 27.28 K/mm3 (4.00-11.30)
[2018-07-01 05:36] LABS: Bun/Creatinine Ratio 30.6 (12.0-20.0); Calcium, Blood 8.8 mg/dL (8.5-10.1); Creatinine, Blood 1.34 mg/dL (0.40-1.00); Potassium, Blood 3.5 mmol/L (3.5-5.5)
--- NOTE | 2018-07-01 07:08 | NUR ---
very sleepy, has not been fully awake since she arrived but responds to voice and sits up and able to take medication, call light in reach, iv infusing, room air walking rounds completed with day staff
[2018-07-01 11:57] LABS: Source, Urine Catheter
[2018-07-01 12:03] LABS: Bilirubin, Urine Neg (Neg); Blood, Urine 4+ (Neg); Glucose Qualitative, Urine Neg (Neg); Ketones, Urine Neg (Neg); Leukocyte Esterase, Urine 3+ (Neg); Nitrite, Urine Neg (Neg); Protein, Urine 2+ (Neg); Specific Gravity, Urine 1.005 (1.003-1.022); Urobilinogen, Urine NORM (Normal)
[2018-07-01 12:54] LABS: Appearance, Urine Hazy (Clear); Color, Urine Yellow (P-Yellow)
[2018-07-01 12:55] LABS: White Blood Cells, Urine 25-50 /hpf (0-5)
[2018-07-01 12:56] LABS: Bacteria Mod /hpf; Squamous Epithelial Cells Mod /hpf (Few)
--- NOTE | 2018-07-01 17:42 | NUR ---
PT'S INSULIN IS STILL BEING HELD PER DR. APONTE UNTILL FURTHER NOTICE FROM HIM. PT. STILL RECEIVING D51/2 NS WITH 20 OF KCL. SPEECH EVAL TODAY PLACED PT. ON NECTAR THICK LIQUID AND MECH SOFT FOOD, UP IN CHAIR FOR MEALS. PT. SLEPT ALL MORNING UNTIL AROUND NOON. VERY SEDATED. PT. ATE AND WENT BACK TO SLEEP. CATHETER CHANGED BY ROBOTICS TESTING TECHNICIANFLORIN CHOUDHARY.
--- NOTE | 2018-07-01 20:42 | NUR ---
REMAINS DROWSY, REQUESTED PAIN MEDICATION DUE TO SOMUNLANCE GAVE TYLENOL, REQUESTED NORCO, PROMISED TO REEVALUATE TO SEE IF ALERT ENOUGH TO HAVE NARCODIC
--- NOTE | 2018-07-02 06:50 | NUR ---
still somunlent, on d5w to keep up blood sugar, insulin orders changed, call light in reach, 2L via nc, tylenol for high temp brought it down to 99.8
--- NOTE | 2018-07-02 18:43 | NUR ---
PT. LYING IN BED. IS LETHARGIC BUT ORIENTED X4. IS EATING HER MEALS FAIRLY WELL BUT SLEEPS MOST OF THE TIME. BLOOD SUGARS ARE UP AGAIN SO IVF STOPPED PER DR. Aida APONTE AND HE INCREASED THE NIGHTLY LANTUS . NO NOTEABLE CHANGES TYHIS SHIFT. GIVEN BED BATHE AND SHAMPOOD HAIR. STILL SPIKING FEVERS OCCASIONALLY
--- NOTE | 2018-07-02 21:20 | NUR ---
CBG 451. HOSPITALIST BRYANNA CORDOVA NOTIFIED AND ORDERED HUMILIN R 15 UNITS TIMES ONE AND RECHECK IN ONE HOUR. GIVE SCHEDULED 50 UNITS OF LANTUS. ORDERED PLACED AND WILL CONTINUE TO MONITOR.
--- NOTE | 2018-07-02 23:54 | NUR ---
CBG 434 AND CHARGE NURSE NOTIFIED. SHE REPORTS TO RECHECK HUMILIN R IN TWO HOURS INSTEAD OF ONE HOUR. WILL RECHECK AND CONTINUE TO MONITOR.
--- NOTE | 2018-07-03 00:20 | NUR ---
CBG 389 AFTER 15 UNITS OF HUMILIN R AND LANTUS 50 UNITS. NOTE LANTUS INCREASE FROM 20 UNITS TO 50 UNITS PER DAY RN. WILL CONTINUE TO MONITOR. PATIENT ALERT AND ORIENTED. CALL LIGHT IN REACH.
--- NOTE | 2018-07-03 04:18 | NUR ---
SHIFT SUMMARY DAY RN REPORTS PATIENT CBG 408 AND CALLED HOSPITALIST AND COVERED WITH 10 UNITS OF HUMILIN R. CBG 451 THIS SHIFT AND HOSPITALIST BRYANNA HEALTH PROGRAM ANALYST ORDERED 15 UNITS HUMILIN R TIMES ONE AND CBG REASSESS AT 389. NOTE LANTUS INCREASED FROM 20 UNITS TO 50 UNITS PER DAY RN. PIV REMAINS INTACT. DENIES PAIN, SOB, AND N/V. VSS/AFEBRILE. CALL LIGHT IN REACH. BED IN LOWEST POSITION. WILL CONTINUE TO MONITOR UNTIL DAY SHIFT NURSE ASSUMES CARE.
[2018-07-03 05:07] LABS: BASOPHILS ABSOLUTE AUTO 0.01 K/mm3 (0.00-0.23); BASOPHILS PERCENT AUTO 0 % (0-2); EOSINOPHILS PERCENT AUTO 0 % (0-6); Hematocrit 26.1 % (33.0-51.0); Hemoglobin 8.1 g/dL (11.5-16.0); IMMATURE GRAN ABSOLUTE AUTO 0.05 K/mm3 (0.00-0.10); IMMATURE GRAN PERCENT AUTO 1 % (0-1); LYMPHOCYTES PERCENT AUTO 10 % (21-46); MONOCYTES ABSOLUTE AUTO 0.56 K/mm3 (0.16-1.47); MONOCYTES PERCENT AUTO 8 % (4-13); Mean Corpuscular HGB 26.8 pg (26.0-34.0); Mean Corpuscular Volume 86 fL (80-100); Mean Platelet Volume 10.3 fL (9.1-12.4); NEUTROPHILS PERCENT AUTO 82 % (41-73); Platelet Count 205 K/mm3 (150-400); RDW Coefficient Variation 15.1 % (11.7-14.2); RDW Standard Deviation 48.3 fL (35.1-46.3); Red Blood Cell Count 3.02 M/mm3 (3.80-5.20); White Blood Cell Count 7.22 K/mm3 (4.00-11.30)
[2018-07-03 05:42] LABS: Calcium, Blood 9.2 mg/dL (8.5-10.1); Creatinine, Blood 1.06 mg/dL (0.40-1.00); Potassium, Blood 3.8 mmol/L (3.5-5.5)
--- NOTE | 2018-07-03 14:14 | NUR ---
PT.DISCHARGED TO [facility] VIA VAN. PT. A PIVOT TRANSFER TO WITH USE OF GAIT BELT AND 2 PEOPLE. TRIED TO CALL REPORT TO [facility] BUT WAS UNABLE TO R/T FACT NO ONE ANSWERED THE PHONE.
== END 2018-07-03 14:14 | DRG 698 ==
LOC: ER 15:16 → MEDS 17:31
PROVIDERS: Emergency Medicine; Family Medicine; ADMIT Internal Medicine
DX: T83.511A Infection and inflammatory reaction due to indwelling urethral catheter, initial encounter (principal); J18.9 Pneumonia, unspecified organism; J96.21 Acute and chronic respiratory failure with hypoxia; J44.1 Chronic obstructive pulmonary disease with (acute) exacerbation; K50.90 Crohn's disease, unspecified, without complications; N17.9 Acute kidney failure, unspecified; I69.354 Hemiplegia and hemiparesis following cerebral infarction affecting left non-dominant side; J44.0 Chronic obstructive pulmonary disease with (acute) lower respiratory infection; I12.9 Hypertensive chronic kidney disease with stage 1 through stage 4 chronic kidney disease, or unspecified chronic kidney disease; E11.22 Type 2 diabetes mellitus with diabetic chronic kidney disease; Z87.891 Personal history of nicotine dependence; Z79.4 Long term (current) use of insulin; N31.9 Neuromuscular dysfunction of bladder, unspecified; E11.51 Type 2 diabetes mellitus with diabetic peripheral angiopathy without gangrene; K21.9 Gastro-esophageal reflux disease without esophagitis; Z86.718 Personal history of other venous thrombosis and embolism; M81.0 Age-related osteoporosis without current pathological fracture; Z99.81 Dependence on supplemental oxygen; N18.3 Chronic kidney disease, stage 3 (moderate); E11.649 Type 2 diabetes mellitus with hypoglycemia without coma; R13.12 Dysphagia, oropharyngeal phase; E11.65 Type 2 diabetes mellitus with hyperglycemia; Z74.01 Bed confinement status; B96.1 Klebsiella pneumoniae [K. pneumoniae] as the cause of diseases classified elsewhere
CPT/HCPCS: 36415; 71045; 74230; 80048; 80053; 81001; 82947; 83605; 84145; 84484; 85025; 85610; 85730; 87040; 87077; 87086; 87186; 92526; 92610; 92611; 93005; 93010; 94640; 94760; 96374; 99285-25; J0456; J0696; J1650; J1815; J7030; J7050; J7120

== ENCOUNTER → 2018-10-22 | Outpatient (CLI) | payer OTHER ==
[~2018-10-22] MED LIST changes: +FLONASE ALLERG9.9 ML
== END | disposition home or self-care (01) ==
LOC: LAB SHORT 17:23 → LAB 17:23
DX: L97.509 Non-pressure chronic ulcer of other part of unspecified foot with unspecified severity (principal)
CPT/HCPCS: 87070; 87075; 87077; 87186; 87205

== ENCOUNTER 2018-10-28 16:14 | Inpatient (IN) | payer OTHER ==
[~2018-10-28] VITALS: Ht 162.6 cm; Wt 84.3 kg
[~2018-10-28 16:14] MED LIST changes: -Humalog100 UNIT/3
[2018-10-28 17:00] LABS: BASOPHILS ABSOLUTE AUTO 0.04 K/mm3 (0.00-0.23); BASOPHILS PERCENT AUTO 0 % (0-2); EOSINOPHILS ABSOLUTE AUTO 0.15 K/mm3 (0.00-0.68); EOSINOPHILS PERCENT AUTO 1 % (0-6); Hematocrit 34.1 % (33.0-51.0); Hemoglobin 10.8 g/dL (11.5-16.0); IMMATURE GRAN ABSOLUTE AUTO 0.08 K/mm3 (0.00-0.10); IMMATURE GRAN PERCENT AUTO 1 % (0-1); LYMPHOCYTES ABSOLUTE AUTO 1.75 K/mm3 (0.84-5.20); LYMPHOCYTES PERCENT AUTO 15 % (21-46); MONOCYTES ABSOLUTE AUTO 0.86 K/mm3 (0.16-1.47); MONOCYTES PERCENT AUTO 8 % (4-13); Mean Corpuscular HGB Conc 31.7 g/dL (31.5-36.5); Mean Corpuscular Volume 82 fL (80-100); Mean Platelet Volume 9.5 fL (9.1-12.4); NEUTROPHILS ABSOLUTE AUTO 8.57 K/mm3 (1.96-9.15); NEUTROPHILS PERCENT AUTO 75 % (41-73); Platelet Count 379 K/mm3 (150-400); RDW Coefficient Variation 16.3 % (11.7-14.2); RDW Standard Deviation 48.1 fL (35.1-46.3); Red Blood Cell Count 4.15 M/mm3 (3.80-5.20); White Blood Cell Count 11.45 K/mm3 (4.00-11.30)
[2018-10-28 17:20] LABS: Alanine Aminotransfer (ALT/SGP 26 U/L (12-78); Albumin, Blood 3.4 g/dL (3.4-5.0); Albumin/Globulin Ratio 0.8 (0.8-1.8); Alk Phos 109 U/L (50-136); Anion Gap 7 mmol/L (6-16); Aspartate Aminotrans (AST/SGOT 17 U/L (12-37); Bilirubin, Total 0.4 mg/dL (0.1-1.0); Blood Urea Nitrogen 52 mg/dL (8-24); Bun/Creatinine Ratio 62.1 (12.0-20.0); CO2, Blood 29 mmol/L (21-32); Chloride, Blood 87 mmol/L (98-108); Creatinine, Blood 0.84 mg/dL (0.40-1.00); Globulin, Blood 4.2 g/dL (2.2-4.0); Glomerular Filtration Rate >60 (60-); Glucose, Blood 274 mg/dL (70-99); Potassium, Blood 4.2 mmol/L (3.5-5.5); Sodium, Blood 123 mmol/L (136-145); Total Protein, Blood 7.6 g/dL (6.4-8.2)
[2018-10-28 17:42] LABS: Source, Urine Catheter
[2018-10-28 17:48] LABS: Bilirubin, Urine Neg (Neg); Blood, Urine 2+ (Neg); Glucose Qualitative, Urine Neg (Neg); Ketones, Urine Neg (Neg); Leukocyte Esterase, Urine 3+ (Neg); Nitrite, Urine Neg (Neg); Protein, Urine Neg (Neg); Specific Gravity, Urine 1.005 (1.003-1.022); Urobilinogen, Urine NORM (Normal); pH, Urine 6.5 (5.0-8.0)
[2018-10-28 17:54] LABS: Appearance, Urine Clear (Clear); Color, Urine Yellow (P-Yellow)
[2018-10-28 17:55] LABS: Transitional Epithelial Cells Few /hpf (0-Rare); White Blood Cells, Urine 50-100 /hpf (0-5)
[2018-10-28 17:56] LABS: Bacteria Many /hpf; Squamous Epithelial Cells Few /hpf (Few)
[2018-10-28] MEDS ORDERED: Nitrofurantoin50 MG PO (19:23)
[2018-10-29 03:13] LABS: BASOPHILS ABSOLUTE AUTO 0.05 K/mm3 (0.00-0.23); BASOPHILS PERCENT AUTO 0 % (0-2); EOSINOPHILS ABSOLUTE AUTO 0.19 K/mm3 (0.00-0.68); EOSINOPHILS PERCENT AUTO 2 % (0-6); Hemoglobin 9.3 g/dL (11.5-16.0); IMMATURE GRAN ABSOLUTE AUTO 0.07 K/mm3 (0.00-0.10); IMMATURE GRAN PERCENT AUTO 1 % (0-1); LYMPHOCYTES ABSOLUTE AUTO 1.23 K/mm3 (0.84-5.20); LYMPHOCYTES PERCENT AUTO 9 % (21-46); MONOCYTES ABSOLUTE AUTO 0.81 K/mm3 (0.16-1.47); MONOCYTES PERCENT AUTO 6 % (4-13); Mean Corpuscular HGB 26.1 pg (26.0-34.0); Mean Corpuscular Volume 84 fL (80-100); Mean Platelet Volume 9.4 fL (9.1-12.4); NEUTROPHILS ABSOLUTE AUTO 10.75 K/mm3 (1.96-9.15); NEUTROPHILS PERCENT AUTO 82 % (41-73); Platelet Count 333 K/mm3 (150-400); RDW Coefficient Variation 16.4 % (11.7-14.2); RDW Standard Deviation 49.9 fL (35.1-46.3); Red Blood Cell Count 3.57 M/mm3 (3.80-5.20)
[2018-10-29 03:34] LABS: Anion Gap 8 mmol/L (6-16); Blood Urea Nitrogen 48 mg/dL (8-24); CO2, Blood 28 mmol/L (21-32); Chloride, Blood 93 mmol/L (98-108); Creatinine, Blood 0.98 mg/dL (0.40-1.00); Glomerular Filtration Rate 58 (60-); Glucose, Blood 281 mg/dL (70-99); Potassium, Blood 4.1 mmol/L (3.5-5.5); Sodium, Blood 129 mmol/L (136-145); Vancomycin, Random 15.2 ug/mL
--- NOTE | 2018-10-29 05:31 | NUR ---
SHIFT SUMMARY PT ADMITTED FOR COPD EXACERBATION. LACTIC ACID 2.5, FLUID BOLUS GIVEN OVER 4 HOURS PT STATES SHE HAS CHF WELL. NS NOW INFUSING AT 100ML/HR. PT ALERT AND ORIENTED, BUT STATES SHE HAS SHORT TERM MEMORY LOSS. PT HAS PRESSURE ULCER TO COCCYX AND MULTIPLE DIABETIC ULCERS TO LOWER EXTREMITIES. MULTIPLE PICTURES TAKEN AND ARE IN CHART. MEPILEX APLLIED TO HEELS, COCCYX, AND LEFT LATERAL CALF. PT STATES SHE IS PRETTY MUCH BEDRIDDEN AT HOME AND REQUIRES A LIFT. 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 LEFT ARM AND HAND ALSO SWOLLEN, HAS HISTORY OF DVT'S. HEPARIN INFUSION PER ORDER. MEDICATED FOR FOOT PAIN BILAT. PT SLEPT WELL, WILL CONTINUE TO MONITOR.
[2018-10-29] MEDS ORDERED: GABA300 PO (12:37)
[2018-10-29 15:20] LABS: Source, Urine Clean Catch
[2018-10-29 15:28] LABS: Bilirubin, Urine Neg (Neg); Blood, Urine 2+ (Neg); Glucose Qualitative, Urine 4+ (Neg); Ketones, Urine Neg (Neg); Leukocyte Esterase, Urine 3+ (Neg); Nitrite, Urine Neg (Neg); Protein, Urine Neg (Neg); Urobilinogen, Urine NORM (Normal)
[2018-10-29 16:00] LABS: Appearance, Urine Clear (Clear); Color, Urine Yellow (P-Yellow)
[2018-10-29 16:02] LABS: Bacteria Not Seen /hpf; Squamous Epithelial Cells Few /hpf (Few)
--- NOTE | 2018-10-29 16:26 | NUR ---
IV SITE 22G IN RH.
--- NOTE | 2018-10-29 19:50 | NUR ---
SHE HAS HAD A PRETTY COMFORTABLE DAY. TELE UNCHANGED. BEDBATH DONE. HEELS ALWAYS FLOATED. GR CATHETER REPLACED. GABAPENTIN ORDER OBTAINED AND STARTED. NORCO GIVEN X1 FOR PAIN IN HER BACK, LEGS AND FEET. O2 2L.INSULIN REQUIRED ALL 3 MEALS. HEPARIN DRIP INCREASED SLIGHTLY MIDDAY.
--- NOTE | 2018-10-30 05:37 | NUR ---
SHIFT SUMMARY PT SLEPT WELL T/O NIGHT. RESPONDING TO VERBAL STIMULI AT BEGINNING OF SHIFT, BUT MORE ALERT NOW THIS AM. CATH CARES DONE, PT WANTING PRUNE JUICE THIS AM SINCE SHE HASN'T HAD A BM. HEPARIN DRIP INFUSING WITHOUT DIFFICULTY. NO ACUTE EVENTS OVERNIGHT. WILL CONTINUE TO MONITOR.
[2018-10-30 05:41] LABS: BASOPHILS ABSOLUTE AUTO 0.04 K/mm3 (0.00-0.23); BASOPHILS PERCENT AUTO 0 % (0-2); EOSINOPHILS ABSOLUTE AUTO 0.22 K/mm3 (0.00-0.68); EOSINOPHILS PERCENT AUTO 2 % (0-6); Hemoglobin 8.4 g/dL (11.5-16.0); IMMATURE GRAN ABSOLUTE AUTO 0.06 K/mm3 (0.00-0.10); IMMATURE GRAN PERCENT AUTO 1 % (0-1); LYMPHOCYTES ABSOLUTE AUTO 1.43 K/mm3 (0.84-5.20); LYMPHOCYTES PERCENT AUTO 16 % (21-46); MONOCYTES ABSOLUTE AUTO 0.78 K/mm3 (0.16-1.47); MONOCYTES PERCENT AUTO 9 % (4-13); Mean Corpuscular HGB 26.4 pg (26.0-34.0); Mean Corpuscular HGB Conc 31.1 g/dL (31.5-36.5); Mean Corpuscular Volume 85 fL (80-100); Mean Platelet Volume 9.6 fL (9.1-12.4); NEUTROPHILS ABSOLUTE AUTO 6.64 K/mm3 (1.96-9.15); NEUTROPHILS PERCENT AUTO 72 % (41-73); Platelet Count 328 K/mm3 (150-400); RDW Coefficient Variation 16.8 % (11.7-14.2); RDW Standard Deviation 51.4 fL (35.1-46.3); Red Blood Cell Count 3.18 M/mm3 (3.80-5.20); White Blood Cell Count 9.17 K/mm3 (4.00-11.30)
[2018-10-30 06:05] LABS: Albumin, Blood 2.5 g/dL (3.4-5.0); Anion Gap 6 mmol/L (6-16); Blood Urea Nitrogen 41 mg/dL (8-24); Bun/Creatinine Ratio 41.2 (12.0-20.0); CO2, Blood 28 mmol/L (21-32); Calcium, Blood 9.2 mg/dL (8.5-10.1); Chloride, Blood 101 mmol/L (98-108); Creatinine, Blood 0.99 mg/dL (0.40-1.00); Glomerular Filtration Rate 57 (60-); Glucose, Blood 93 mg/dL (70-99); Potassium, Blood 3.9 mmol/L (3.5-5.5); Sodium, Blood 135 mmol/L (136-145)
--- NOTE | 2018-10-30 18:41 | NUR ---
Mattie appears a bit confused. She will often shift topics throughout conversation. She tells me that since her stroke, she finds very little that brings her rosalia. She admits to feeling tired of being sick and unable to "do much." Her disability frustrates and dissapoints her. She feels herself getting more ill. Still, she states she is not ready to . She believes in heaven and tells me that she knows she will be reunited with her . They were 54 years. She feels guilty that her son has to provide total care. Her DIL is fighting cancer and is also quite ill. I attempted to swing conversation around to her beleifs regarding . She was raised Protestant, but has not been active in her edith for some time. However, when I asked her about her edith, she would change the topic to someone else in her family who was also ill or had experienced tragedy. She did become tearful at times, and would allow me to console her. She did not wish to elaborate on her fears/concerns/tearfulness. But we do have a good rapport, and I will continue to attempt gentle spiritual direction and spiritual counselor as schedule permits.
--- NOTE | 2018-10-30 18:45 | NUR ---
SHIFT SUMMARY BEDREST. [id number]. INCONTINENT ATTENDS IN PLACE. OX3. MEDICATED FOR ABDOMINAL PAIN THIS SHIFT. BM TODAY. LIVES AT HOME WITH SON. SMALL AMOUNT GREENISH DISCHARGE TO [place] AREA NEAR GR SITE (GR CARE GIVEN). DENTURES. EATING AND DRINKING WELL. THICKENED FLUIDS. CHRONIC GR.
--- NOTE | 2018-10-31 03:53 | NUR ---
SHIFT SUMMARY PATIENT HAD NO ACUTE CHANGES OBSERVED THIS SHIFT. AXO X3 AND BEDFAST. PIV REMAINS INTACT. CBG 336. GR PATENT AND DRAINING. THICKEN FLUIDS. ON 2L O2 NC. VSS/AFEBRILE. DENIES PAIN, SOB, AND N/V. CONTACT PRECAUTIONS. NS INFUSING AT 100 mL/HR. IV ABX INFUSED. CALL LIGHT IN REACH. BED IN LOWEST POSITION. WILL CONTINUE TO MONITOR UNTIL DAY SHIFT NURSE ASSUMES CARE.
[2018-10-31 08:44] LABS: BASOPHILS ABSOLUTE AUTO 0.04 K/mm3 (0.00-0.23); BASOPHILS PERCENT AUTO 1 % (0-2); EOSINOPHILS ABSOLUTE AUTO 0.25 K/mm3 (0.00-0.68); EOSINOPHILS PERCENT AUTO 3 % (0-6); Hematocrit 27.8 % (33.0-51.0); Hemoglobin 8.4 g/dL (11.5-16.0); IMMATURE GRAN ABSOLUTE AUTO 0.06 K/mm3 (0.00-0.10); IMMATURE GRAN PERCENT AUTO 1 % (0-1); LYMPHOCYTES ABSOLUTE AUTO 1.21 K/mm3 (0.84-5.20); LYMPHOCYTES PERCENT AUTO 14 % (21-46); MONOCYTES ABSOLUTE AUTO 0.83 K/mm3 (0.16-1.47); MONOCYTES PERCENT AUTO 9 % (4-13); Mean Corpuscular HGB 25.9 pg (26.0-34.0); Mean Corpuscular HGB Conc 30.2 g/dL (31.5-36.5); Mean Corpuscular Volume 86 fL (80-100); Mean Platelet Volume 9.5 fL (9.1-12.4); NEUTROPHILS ABSOLUTE AUTO 6.47 K/mm3 (1.96-9.15); NEUTROPHILS PERCENT AUTO 73 % (41-73); Platelet Count 327 K/mm3 (150-400); RDW Coefficient Variation 17.2 % (11.7-14.2); RDW Standard Deviation 52.9 fL (35.1-46.3); Red Blood Cell Count 3.24 M/mm3 (3.80-5.20); White Blood Cell Count 8.86 K/mm3 (4.00-11.30)
[2018-10-31 09:01] LABS: Albumin, Blood 2.5 g/dL (3.4-5.0); Anion Gap 6 mmol/L (6-16); Blood Urea Nitrogen 33 mg/dL (8-24); Bun/Creatinine Ratio 38.6 (12.0-20.0); CO2, Blood 25 mmol/L (21-32); Chloride, Blood 108 mmol/L (98-108); Creatinine, Blood 0.86 mg/dL (0.40-1.00); Glomerular Filtration Rate >60 (60-); Glucose, Blood 155 mg/dL (70-99); Phosphorus, Blood 3.6 mg/dL (2.5-4.9); Potassium, Blood 4.7 mmol/L (3.5-5.5); Sodium, Blood 139 mmol/L (136-145)
[2018-10-31 09:42] LABS: Vancomycin, Trough 21.3 ug/mL (5.0-10.0)
--- NOTE | 2018-10-31 18:34 | NUR ---
SHIFT SUMMARY LATOSHA COMPLAINED OF FEET AND BACK PAIN, FOR WHICH SHE RECEIVED NORCO. Q2 TURN PERFORMED WITH 2 BMS THIS SHIFT. GR INTACT AND DRAINING, GR CARE PERFORMED TWICE THSI SHIFT DUE TO GREENISH DISCHARGE --NOT SURE IF THIS IS VAGINAL OR FROM URETHRA. CRITICALLY HIGH VANCO DOSE, CALLED TO PHARMACY. SUSHANT CAME TO SEE PT, IT APPEARS THAT A PROCEDURE WILL BE DONE OUTPATIENT TO POSSIBLY REVASCULARIZE BOTH LEGS. RASH ALL OVER BACK, CALAZIME APPLIED. DRESSINGS INTACT ON COCCYX, BLE AND HEELS ELEVATED. PT DECLINES THICKENED LIQUIDS, FULLY UPRIGHT FOR ORAL INTAKE. L SIDE WEAK; MEDS WHOLE WITH APPLESAUCE. MIVF RUNNING. WCTM
--- NOTE | 2018-11-01 03:39 | NUR ---
SHIFT SUMMARY PATIENT HAD NO ACUTE CHANGES OBSERVED THIS SHIFT. AXO X3 AND BEDFAST. PIV REMAINS INTACT. NS INFUSING AT 100 mL/HR. IV ABX INFUSED. VSS/AFEBRILE. DENIES PAIN, SOB, AND N/V. TURN Q2. GR PATENT AND DRAINING. ON 2L O2 NC. HEELS FLOATED T/O SHIFT. MEPILEX ON COCCYX CHANGED. CBG 313 AND LANTUS 60 UNITS GIVEN PER EMAR. CONTACT PRECAUTIONS. CALL LIGHT IN REACH. BED IN LOWEST POSITION. WILL CONTINUE TO MONITOR UNTIL DAY SHIFT NURSE ASSUMES CARE.
--- NOTE | 2018-11-01 19:09 | NUR ---
SHIFT SUMMARY: NO ACUTE CHANGES TO REPORT THIS SHIFT. PT A&O; HX CVA c L SIDE RESIDUAL WEAKNESS; CALM AND COOPERATIVE WITH CARE. MEDICATED FOR PAIN PER EMAR. CHRONIC GR IN FOR URINARY RETENTION; PATENT AND DRAINING. TURN Q2H; MEPILEX & HEEL PROTECTORS ON; WOUND CARE TO RIGHT FOOT; MRSA IN WOUND. ASPIRATION PRECAUTIONS; THICKENED LIQUIDS; MEDS WHOLE IN APPLE SAUCE. REPORT GIVEN TO ONCOMING RN.
--- NOTE | 2018-11-02 05:40 | NUR ---
SHIFT SUMMARY PT HAD UNEVENTFUL NIGHT. THIN LIQUIDS FOUND AT PT'S BEDSIDE AND REMOVED. PT HAS ORDER FOR NECTAR THICK LIQUIDS DUE TO ASPIRATION RISK. MANY OPTIONS GIVEN TO PT FOR NECTAR THICK LIQUIDS BUT PT WAS UNRECEPTIVE TO IT. STATES, "I GUESS I'LL JUST DRINK NOTHING THEN". EDUCATED PT ON REASONING FOR THICKENED LIQUIDS. OTHERWISE PT PLEASANT AND COOPERATIVE. GR CATHETER IN PLACE. LUNG SOUNDS COARSE, NAGGING COUGH AT TIMES PRODUCING THICK CLEAR SPUTUM. MEPILEX'S TO HEELS CLEAN DRY AND INTACT AND FOAM HEEL PROTECTORS REMAIN IN PLACE. PT HAS DENIED PAIN SO FAR THIS EVENING. VSS. WILL CONTINUE TO MONITOR AND REPORT TO DAY RN.
[2018-11-02 05:42] LABS: BASOPHILS ABSOLUTE AUTO 0.04 K/mm3 (0.00-0.23); BASOPHILS PERCENT AUTO 0 % (0-2); EOSINOPHILS ABSOLUTE AUTO 0.24 K/mm3 (0.00-0.68); EOSINOPHILS PERCENT AUTO 2 % (0-6); Hematocrit 29.6 % (33.0-51.0); Hemoglobin 8.8 g/dL (11.5-16.0); IMMATURE GRAN ABSOLUTE AUTO 0.07 K/mm3 (0.00-0.10); IMMATURE GRAN PERCENT AUTO 1 % (0-1); LYMPHOCYTES ABSOLUTE AUTO 1.66 K/mm3 (0.84-5.20); LYMPHOCYTES PERCENT AUTO 17 % (21-46); MONOCYTES ABSOLUTE AUTO 0.83 K/mm3 (0.16-1.47); MONOCYTES PERCENT AUTO 8 % (4-13); Mean Corpuscular HGB 26.3 pg (26.0-34.0); Mean Corpuscular HGB Conc 29.7 g/dL (31.5-36.5); Mean Platelet Volume 9.2 fL (9.1-12.4); NEUTROPHILS PERCENT AUTO 72 % (41-73); Platelet Count 328 K/mm3 (150-400); RDW Coefficient Variation 17.9 % (11.7-14.2); RDW Standard Deviation 57.9 fL (35.1-46.3); Red Blood Cell Count 3.34 M/mm3 (3.80-5.20); White Blood Cell Count 10.04 K/mm3 (4.00-11.30)
[2018-11-02 05:43] LABS: Mean Corpuscular Volume 89 fL (80-100)
[2018-11-02 06:28] LABS: Albumin, Blood 2.8 g/dL (3.4-5.0); Anion Gap 7 mmol/L (6-16); Blood Urea Nitrogen 35 mg/dL (8-24); CO2, Blood 28 mmol/L (21-32); Calcium, Blood 9.8 mg/dL (8.5-10.1); Chloride, Blood 106 mmol/L (98-108); Creatinine, Blood 0.92 mg/dL (0.40-1.00); Glomerular Filtration Rate >60 (60-); Glucose, Blood 82 mg/dL (70-99); Magnesium, Blood 2.1 mg/dL (1.6-2.4); Phosphorus, Blood 4.3 mg/dL (2.5-4.9); Potassium, Blood 4.5 mmol/L (3.5-5.5); Sodium, Blood 141 mmol/L (136-145)
--- NOTE | 2018-11-02 17:52 | NUR ---
SHIFT SUMMARY A&OX3. CALM AND COOPERATIVE WITH CARE. PT RESTING IN BED DURING SHIFT, PER PT SHE IS BED BOUND AT BASELINE. PT REPORTS HAVING CHRONIC PAIN FROM FIBROMYALGIA, MEDICATED PER EMAR. PT SOB WITH EXERTION, ON 2L O2 VIA NC, 2L O2 VIA NC AT BASELINE. PT DENIES N/V DURING SHIFT. PT RECEIVING IV ANTIBIOTIC, AFTERNOON DOSE DELAYED DUE TO LOSE OF IV ACCESS. WOUNDS SCATTERED ON BLE AND COCCYX, BED BATH COMPLETED, WOUNDS CLEARNED AND MEPILEX DRESSING REPLACED. PT AGREEABLE TO DRINKING THICKENED LIQUIDS DURING SHIFT. ELEVATE BP, TRENDING DOWN THIS AFTERNOON. OTHER VSS. NO OTHER ACUTE CHANGE NOTED DURING SHIFT. WILL CONTINUE TO MONITOR UNTIL REPORT GIVEN TO ONCOMING RN.
--- NOTE | 2018-11-03 03:59 | NUR ---
SHIFT SUMMARY PT REPORTS 8/10 PAIN THIS EVENING, STATING THAT SHE IS ALWAYS IN PAIN. MEDICATED X 1 AT BEGINNING OF SHIFT WITH 1 TAB NORCO. PT HAS SLEPT THE REMAINDER OF THE SHIFT. WAKING WITH TURNING BUT QUICKLY FALLING BACK ASLEEP. DRESSING TO BLE'S AND COCCYX REMAIN C/D/I. OCCASSIONAL PRODUCTIVE NAGGING COUGH. NO COMPLAINTS ABOUT THICKENED LIQUIDS THIS EVENING. CBG 247, PT RECIEVED BEDTIME DOSE OF 60 UNIT LANTUS. VSS. OTHERWISE NO ACUTE CHANGES. WILL CONTINUE TO MONITOR AND REPORT TO DAY RN.
[2018-11-03 05:49] LABS: BASOPHILS ABSOLUTE AUTO 0.04 K/mm3 (0.00-0.23); BASOPHILS PERCENT AUTO 0 % (0-2); EOSINOPHILS ABSOLUTE AUTO 0.37 K/mm3 (0.00-0.68); EOSINOPHILS PERCENT AUTO 4 % (0-6); Hematocrit 28.1 % (33.0-51.0); Hemoglobin 8.5 g/dL (11.5-16.0); IMMATURE GRAN ABSOLUTE AUTO 0.06 K/mm3 (0.00-0.10); IMMATURE GRAN PERCENT AUTO 1 % (0-1); LYMPHOCYTES ABSOLUTE AUTO 1.55 K/mm3 (0.84-5.20); LYMPHOCYTES PERCENT AUTO 17 % (21-46); MONOCYTES ABSOLUTE AUTO 0.72 K/mm3 (0.16-1.47); MONOCYTES PERCENT AUTO 8 % (4-13); Mean Corpuscular HGB 26.4 pg (26.0-34.0); Mean Corpuscular HGB Conc 30.2 g/dL (31.5-36.5); Mean Corpuscular Volume 87 fL (80-100); Mean Platelet Volume 9.4 fL (9.1-12.4); NEUTROPHILS ABSOLUTE AUTO 6.31 K/mm3 (1.96-9.15); NEUTROPHILS PERCENT AUTO 70 % (41-73); Platelet Count 303 K/mm3 (150-400); RDW Coefficient Variation 17.8 % (11.7-14.2); RDW Standard Deviation 56.6 fL (35.1-46.3); Red Blood Cell Count 3.22 M/mm3 (3.80-5.20); White Blood Cell Count 9.05 K/mm3 (4.00-11.30)
[2018-11-03 06:14] LABS: Albumin, Blood 2.8 g/dL (3.4-5.0); Anion Gap 4 mmol/L (6-16); Blood Urea Nitrogen 42 mg/dL (8-24); CO2, Blood 32 mmol/L (21-32); Chloride, Blood 108 mmol/L (98-108); Creatinine, Blood 0.95 mg/dL (0.40-1.00); Glomerular Filtration Rate 60 (60-); Glucose, Blood 106 mg/dL (70-99); Phosphorus, Blood 4.8 mg/dL (2.5-4.9); Sodium, Blood 144 mmol/L (136-145)
--- NOTE | 2018-11-03 19:18 | NUR ---
SHIFT SUMMARY PT A&Ox3. CALM AND COOPERTATIVE WITH CARE. PT RESTING IN BED, REPOSITIONED FOR COMFORT. PT LEFT SIDED WEAKNESS, MINIMAL MOVEMENT IN LEFT SIDE. PT REPORTS PAIN THIS AM, MEDICATED PER EMAR. PT SOB WITH EXERTION, >92% ON 2L O2 VIA NC, HOME DOSE. PT DENIES N/V DURING SHIFT. PT RECEIVING IV ANTIBIOTICS. PICC PLACED YESTERDAY, PLANS TO CONTINUE IV VANCO AT HOME. PT HAD GREEN DISCHARGE IN [place] AREA THIS AM, DR YOUSIF NOTIFIED, NO NEW ORDER, WILL CONTINUE TO MONITOR. ELEVATED BP THIS AFTERNOON, MEDICATED WITH SCHEDULED COREG, OTHER VSS. NO OTHER ACUTE CHANGES NOTED DUIRNG SHIFT. REPORT GIVEN TO ONCOMING FLORIN
[2018-11-04 01:35] LABS: Vancomycin, Trough 22.5 ug/mL (5.0-10.0)
--- NOTE | 2018-11-04 07:27 | NUR ---
SHIFT SUMMARY NO ACUTE CHANGES THIS SHIFT. PT REPOSITIONED FREQUENTLY. DRESSINGS TO COCCYX, BILATERAL HEELS, LEFT CROWDER, AND LEFT THIGH CHANGED. WOUND CLEANSER USED TO CLEAN WOUNDS BEFORE FRESH DRESSINGS WERE PLACED. GR REMAINS PATENT AND DRAINING. SMALL AMOUNT OF GREEN DISCHARGE AROUND GR THIS EVENING. PT REPORTED 9/10 PAIN "ALL OVER". MEDICATED X 1 W/ 1 TAB NORCO. SHORTLY AFTER PT ASLEEP AND SLEPT THROUGHOUT THE NIGHT. VSS. REPORT GIVEN TO DAY RN.
[2018-11-04] MEDS ORDERED: CARV6.25 PO (10:14)
[2018-11-04] MEDS ORDERED: LOSARTAN POTASS25 MG PO (10:15)
[2018-11-04] MEDS ORDERED: Ferrous Sulfat325 M2 PO (10:15)
[2018-11-04] MEDS ORDERED: ALBU3IS INH (10:23)
[2018-11-04] MEDS ORDERED: VANCOMYCIN1.25 GM/21 IV (10:30)
--- NOTE | 2018-11-04 16:33 | NUR ---
VERBAL ORDERS TO HOLD DISCHARGE FOR 11/04/18.
[2018-11-04 18:41] LABS: Vancomycin, Trough 16.6 ug/mL (5.0-10.0)
--- NOTE | 2018-11-04 20:01 | NUR ---
SHIFT SUMMARY PT A&OX3. CALM AND COOPERTATIVE WITH CARE. PT RESTING IN BED DURING SHIFT, REPOSITIONED FOR COMFORT AND SKIN CARE. LIFT NEEDED FOR TRANSFERS. PT REPORTS PAIN "ALL OVER", MEDICATED PER EMAR. PT REPORTS 10/10 SHARP PAIN IN RLQ, WORSE WITH PALPATION, BS HYPOACTIVE, NOTIFIED DR PALMER, OK TO MEDICATIONS WITH NORCO, AND GIVE SUPPOSITORY. NO BM DURING SHIFT. ABD CT COMPLETED THIS AFTERNOON. PT ON 2L O2 VIA NC AT BASELINE, O2 SAT >92% T/O SHIFT. PT DENIES N/V BUT REPORTS DECREASED APPETITE DUE TO ABD TENDERNESS. DISCHARGE HELD UNTIL COMFIRMATION THAT VACNO APPROVED BY INSURANCE OUTPATIENT. CHRONIC GR IN PLACE, PT CONTINUES TO HAVE GREEN DISCHARGE, APPEARING TO COME OUT OF THE URETHRA, NOTIFIED DR PALMER, NO NEW ORDERS. WOUNDS TO BLE AND COCCYX CLEANED, NEW PICTURES IN CHART AND MEPILEXS REPLACED. ABD CT COMPLETED THIS AFTERNOON, PT RECEIVED CONTRAST PER DIRECTIONS. VSS. NO OTHER ACUTE CHANGES NOTED DURING SHIFT. REPORT GIVEN TO ONCOMING RN
--- NOTE | 2018-11-05 18:00 | NUR ---
SUMMARY- PT ALERT TO SELF AND PLACE, FOLLOWS COMMANDS. HX CVA WITH L SIDE NEGLECT. PT TURNED Q2. DRESSINGS INTACT TO COCCYX, HEALS AND L LEG. PT FEEDS SELF WITH SET UP. OCCASIONAL BACK PAIN AND OR FEET PAIN, RELEIVED WITH NORCO. PT HAD 2 SOFT BM'S TODAY. INDWELLING GR PATENT AND DRAINING MED YELLOW. VSS, CBG'S IN GOOD RANGE. WAS GOING TO BE DC'D TODAY BUT AWAITING OK FOR HOME HEALTH INFUSION.
--- NOTE | 2018-11-06 04:06 | NUR ---
NOC SHIFT SUMMARY PT CALM AND COOPERATIVE WITH CARE. VSS. DRESSINGS ARE CLEAN, DRY, AND INTACT. ON 2L NC. AAO TO PERSON AND PLACE. GR DRAINING YELLOW URINE. HAD VERY LARGE BM. SHE HAS SLEPT MOST OF NIGHT. AWAKES DURING Q2HOUR TURNS. NO ACUTE CHANGES NOTED AT THIS TIME. APPEARS IN NO ACUTE DISTRESS. WILL CONTINUE TO MONITOR.
--- NOTE | 2018-11-06 07:29 | NUR ---
PT SHOWING S/S OF LOW BLOOD SUGAR, FEELING SHAKEY. CHECKED CBG AND SUGAR WAS 54. GAVE ORANGE JUICE PEANUT BUTTER AND A SANDWITCH AND BLOOD SUGAR INCREASED TO 124.
[2018-11-06 17:28] LABS: Creatinine, Blood 1.42 mg/dL (0.40-1.00); Vancomycin, Trough 18.4 ug/mL (5.0-10.0)
--- NOTE | 2018-11-06 18:21 | NUR ---
PT COOPERATIVE WITH CARE. TWO BM'S TODAY. CATH BAG EMPTIED. URINE CLEAR YELLOW. PT COMPLAINS OF CONSISTANT PAIN DESPITE PAIN MEDICATION AND Q2 REPOSITIONING. PT HAS TENDENCY TO LEAN ON RIGHT SIDE. PT SLEPT OFF AND ON DURING DAY. ATE MEALS WITH NO COMPLAINT. WATCH FOR ENSURE ON MEAL TRAYS IT IS CAUSING ELEVATED BLOOD GLUCOSE LEVELS. PT RECIEVED BED BATH WHICH WAS TOLERATED WELL. FLUIDS NECTAR THICK.
[2018-11-07 04:54] LABS: BASOPHILS ABSOLUTE AUTO 0.04 K/mm3 (0.00-0.23); BASOPHILS PERCENT AUTO 0 % (0-2); EOSINOPHILS ABSOLUTE AUTO 0.17 K/mm3 (0.00-0.68); EOSINOPHILS PERCENT AUTO 2 % (0-6); Hematocrit 28.2 % (33.0-51.0); Hemoglobin 8.6 g/dL (11.5-16.0); IMMATURE GRAN ABSOLUTE AUTO 0.04 K/mm3 (0.00-0.10); IMMATURE GRAN PERCENT AUTO 0 % (0-1); LYMPHOCYTES ABSOLUTE AUTO 1.46 K/mm3 (0.84-5.20); LYMPHOCYTES PERCENT AUTO 14 % (21-46); MONOCYTES ABSOLUTE AUTO 0.63 K/mm3 (0.16-1.47); MONOCYTES PERCENT AUTO 6 % (4-13); Mean Corpuscular HGB 26.4 pg (26.0-34.0); Mean Corpuscular HGB Conc 30.5 g/dL (31.5-36.5); Mean Corpuscular Volume 87 fL (80-100); Mean Platelet Volume 9.8 fL (9.1-12.4); NEUTROPHILS ABSOLUTE AUTO 8.23 K/mm3 (1.96-9.15); NEUTROPHILS PERCENT AUTO 78 % (41-73); Platelet Count 327 K/mm3 (150-400); RDW Coefficient Variation 17.2 % (11.7-14.2); RDW Standard Deviation 54.7 fL (35.1-46.3); Red Blood Cell Count 3.26 M/mm3 (3.80-5.20); White Blood Cell Count 10.57 K/mm3 (4.00-11.30)
[2018-11-07 05:26] LABS: Bun/Creatinine Ratio 52.5 (12.0-20.0); Calcium, Blood 9.6 mg/dL (8.5-10.1); Creatinine, Blood 1.2 mg/dL (0.40-1.00); Potassium, Blood 5.2 mmol/L (3.5-5.5)
--- NOTE | 2018-11-07 06:29 | NUR ---
SHIFT SUMMARY PT IS AN 83 Y/O FEMALE, ADMITTED FOR COPD EXACERBATION. SHE IS A&O X 3, WITH SOME FORGETFULNESS, AND ON BEDREST. PT HAD A PREV CVA, WITH L-SIDE FLACCIDNESS. PT REPORTED A HEADACHE AND LEG PAIN, FOR WHICH SHE WAS MEDICATED X 1 WITH PRN NORCO. SHE DENIED ANY NAUSEA OR SOB, AND SLEPT WELL DURING THE NIGHT. VITALS REMAINED STABLE. NO OTHER ACUTE CHANGES IN PT CONDITION NOTED. WILL CONTINUE TO MONITOR AND TREAT PER EMAR.
[2018-11-07] MEDS ORDERED: INSULANPEN SC (11:27)
[2018-11-07] MEDS ORDERED: Miralax17 GM PO (11:28)
--- NOTE | 2018-11-07 15:30 | NUR ---
DISCHARGE PT DISCHARGED TO HOME WITH HOME HEALTH. THIS RN EXPLAINED DISCHARGE INSTRUCTIONS AND MEDICATIONS TO PT'S SON, RADHA AND HE REPORTS HE UNDERSTANDS. MEDICATIONS FAXED TO [facility] PER REQUEST. DRESSINGS TO WOUNDS HAVE WERE CHANGED. PT TRANSFERRED TO PRIVATE VEHICLE VIA OWN WHEELCHAIR BY THIS RN. BELONGINGS WITH PT'S SON.
[2018-11-14] MEDS ORDERED: Macrodantin50 MG PO (21:26)
[2018-11-14] MEDS ORDERED: NEBI5 PO (21:27)
[2018-11-14] MEDS ORDERED: GAVILAX17 GM PO (21:28)
== END 2018-11-07 14:18 | disposition home health service (06) | DRG 638 ==
LOC: ER 16:14 → ERHOLD 18:47 → MEDS 18:47 → ENPENDDIS 11-04 08:50 → EDPENDDIS 11-04 08:50 → MEDS 11-07 14:18
PROVIDERS: Emergency Medicine; Family Medicine; Internal Medicine Gastroenterology; Pharmacist; Student in an Organized Health Care Education/Training Program; ADMIT Internal Medicine
DX: E11.621 Type 2 diabetes mellitus with foot ulcer (principal); K50.90 Crohn's disease, unspecified, without complications; E87.1 Hypo-osmolality and hyponatremia; I69.354 Hemiplegia and hemiparesis following cerebral infarction affecting left non-dominant side; L97.421 Non-pressure chronic ulcer of left heel and midfoot limited to breakdown of skin; L97.411 Non-pressure chronic ulcer of right heel and midfoot limited to breakdown of skin; E11.51 Type 2 diabetes mellitus with diabetic peripheral angiopathy without gangrene; E11.42 Type 2 diabetes mellitus with diabetic polyneuropathy; Z74.01 Bed confinement status; Z99.81 Dependence on supplemental oxygen; M81.0 Age-related osteoporosis without current pathological fracture; Z96.0 Presence of urogenital implants; N31.9 Neuromuscular dysfunction of bladder, unspecified; E78.5 Hyperlipidemia, unspecified; Z79.4 Long term (current) use of insulin; Z79.02 Long term (current) use of antithrombotics/antiplatelets; E11.65 Type 2 diabetes mellitus with hyperglycemia; Z87.891 Personal history of nicotine dependence; E66.01 Morbid (severe) obesity due to excess calories; Z68.30 Body mass index [BMI] 30.0-30.9, adult; B95.62 Methicillin resistant Staphylococcus aureus infection as the cause of diseases classified elsewhere; B95.2 Enterococcus as the cause of diseases classified elsewhere; I69.391 Dysphagia following cerebral infarction; G89.4 Chronic pain syndrome; E78.00 Pure hypercholesterolemia, unspecified; J43.9 Emphysema, unspecified; K56.41 Fecal impaction; E11.649 Type 2 diabetes mellitus with hypoglycemia without coma; E11.22 Type 2 diabetes mellitus with diabetic chronic kidney disease; N18.9 Chronic kidney disease, unspecified; L89.321 Pressure ulcer of left buttock, stage 1; L89.311 Pressure ulcer of right buttock, stage 1; N18.3 Chronic kidney disease, stage 3 (moderate); I12.9 Hypertensive chronic kidney disease with stage 1 through stage 4 chronic kidney disease, or unspecified chronic kidney disease
CPT/HCPCS: 36415; 71046; 73630; 74177; 80048; 80053; 80069; 80202; 81001; 82565; 82947; 83036; 83605; 83735; 83880; 83930; 83935; 84443; 84484; 85025; 85379; 85730; 87040; 87070; 87077; 87086; 87147; 87186; 87205; 93005; 93010; 93922; 93971; 94640; 94760; 96365; 98960; 99284-25; A9270-GY; J0696; J1644; J1650; J1815; J3370; J7030; J7050; Q9967

== ENCOUNTER 2018-11-08 08:40 | Day surgery (SDC) | payer OTHER ==
[~2018-11-08 08:40] MED LIST changes: +CARV6.25 PO; +LOSARTAN POTASS25 MG PO; +Miralax17 GM PO; +VANCOMYCIN1.25 GM/21 IV
[2018-11-14] MEDS ORDERED: Macrodantin50 MG PO (21:26)
[2018-11-14] MEDS ORDERED: NEBI5 PO (21:27)
[2018-11-14] MEDS ORDERED: GAVILAX17 GM PO (21:28)
== END 2018-11-08 23:15 | disposition home or self-care (01) ==
LOC: WOUND 08:40
DX: L89.612 Pressure ulcer of right heel, stage 2 (principal); L89.892 Pressure ulcer of other site, stage 2; L89.620 Pressure ulcer of left heel, unstageable; L89.510 Pressure ulcer of right ankle, unstageable; L89.520 Pressure ulcer of left ankle, unstageable; E11.621 Type 2 diabetes mellitus with foot ulcer; L97.821 Non-pressure chronic ulcer of other part of left lower leg limited to breakdown of skin; L97.519 Non-pressure chronic ulcer of other part of right foot with unspecified severity; E11.42 Type 2 diabetes mellitus with diabetic polyneuropathy; E11.51 Type 2 diabetes mellitus with diabetic peripheral angiopathy without gangrene; I73.9 Peripheral vascular disease, unspecified; I11.0 Hypertensive heart disease with heart failure; I50.9 Heart failure, unspecified; I25.10 Atherosclerotic heart disease of native coronary artery without angina pectoris; J44.9 Chronic obstructive pulmonary disease, unspecified; D50.9 Iron deficiency anemia, unspecified; F03.90 Unspecified dementia, unspecified severity, without behavioral disturbance, psychotic disturbance, mood disturbance, and anxiety; Z86.73 Personal history of transient ischemic attack (TIA), and cerebral infarction without residual deficits
CPT/HCPCS: G0463

== ENCOUNTER → 2018-11-10 | Outpatient (CLI) | payer OTHER ==
[2018-11-10 17:55] LABS: Vancomycin, Trough 20.9 ug/mL (5.0-10.0)
== END | disposition home or self-care (01) ==
LOC: LAB 16:00 → LAB SHORT 16:00
PROVIDERS: Internal Medicine
DX: L97.421 Non-pressure chronic ulcer of left heel and midfoot limited to breakdown of skin (principal); B95.62 Methicillin resistant Staphylococcus aureus infection as the cause of diseases classified elsewhere
CPT/HCPCS: 80202

== ENCOUNTER 2018-11-14 08:02 | Day surgery (SDC) | payer OTHER ==
[2018-11-14] MEDS ORDERED: Macrodantin50 MG PO ×2 (21:26)
[2018-11-14] MEDS ORDERED: NEBI5 PO ×2 (21:27)
[2018-11-14] MEDS ORDERED: GAVILAX17 GM PO ×2 (21:28)
== END 2018-11-14 23:21 | disposition home or self-care (01) ==
LOC: WOUND 08:02
DX: L89.612 Pressure ulcer of right heel, stage 2 (principal); L89.512 Pressure ulcer of right ankle, stage 2; L89.892 Pressure ulcer of other site, stage 2; L89.520 Pressure ulcer of left ankle, unstageable; L89.620 Pressure ulcer of left heel, unstageable; E11.621 Type 2 diabetes mellitus with foot ulcer; E11.51 Type 2 diabetes mellitus with diabetic peripheral angiopathy without gangrene; I73.9 Peripheral vascular disease, unspecified; E11.59 Type 2 diabetes mellitus with other circulatory complications; E11.42 Type 2 diabetes mellitus with diabetic polyneuropathy; I13.2 Hypertensive heart and chronic kidney disease with heart failure and with stage 5 chronic kidney disease, or end stage renal disease; E11.22 Type 2 diabetes mellitus with diabetic chronic kidney disease; I50.9 Heart failure, unspecified; N18.6 End stage renal disease; D63.1 Anemia in chronic kidney disease; I25.10 Atherosclerotic heart disease of native coronary artery without angina pectoris; J44.9 Chronic obstructive pulmonary disease, unspecified; F03.90 Unspecified dementia, unspecified severity, without behavioral disturbance, psychotic disturbance, mood disturbance, and anxiety; Z86.73 Personal history of transient ischemic attack (TIA), and cerebral infarction without residual deficits
CPT/HCPCS: 82947; G0463

== ENCOUNTER 2018-11-14 14:18 | Observation (INO) | payer OTHER ==
[~2018-11-14] VITALS: Ht 160 cm; Wt 80.1 kg
--- NOTE | 2018-11-14 14:46 | NUR ---
Rapid response activation led me to wound care where patient's son Wagner, left patient abruptly with her wheelchair and was banging into doors and furniture on his way out. I followed Wagner to his van in the parking lot and walked him up to the ER. Along the way I conducted a life review and learned of his who is battling stage 4 cancer and the the last 7 years of taking care of his mon. Wagner also admitted to being scared when his mom had the episode in the wound center. I continued to talk with Wagner as patient was being being set up in rm16 of ED. Wagner de escalated by the time he reunited with his mom. I listened empathically, distracted Wagner from the situation, provided emotional support and a calming presence.
[2018-11-14 15:20] LABS: BASOPHILS ABSOLUTE AUTO 0.06 K/mm3 (0.00-0.23); BASOPHILS PERCENT AUTO 1 % (0-2); EOSINOPHILS ABSOLUTE AUTO 0.28 K/mm3 (0.00-0.68); EOSINOPHILS PERCENT AUTO 3 % (0-6); Hematocrit 26.5 % (33.0-51.0); IMMATURE GRAN ABSOLUTE AUTO 0.04 K/mm3 (0.00-0.10); IMMATURE GRAN PERCENT AUTO 0 % (0-1); LYMPHOCYTES ABSOLUTE AUTO 1.58 K/mm3 (0.84-5.20); LYMPHOCYTES PERCENT AUTO 17 % (21-46); MONOCYTES ABSOLUTE AUTO 0.77 K/mm3 (0.16-1.47); MONOCYTES PERCENT AUTO 8 % (4-13); Mean Corpuscular HGB 26.2 pg (26.0-34.0); Mean Corpuscular HGB Conc 30.2 g/dL (31.5-36.5); Mean Corpuscular Volume 87 fL (80-100); NEUTROPHILS ABSOLUTE AUTO 6.67 K/mm3 (1.96-9.15); NEUTROPHILS PERCENT AUTO 71 % (41-73); Platelet Count 439 K/mm3 (150-400); RDW Coefficient Variation 18.7 % (11.7-14.2); Red Blood Cell Count 3.05 M/mm3 (3.80-5.20)
[2018-11-14 15:56] LABS: Albumin, Blood 3.1 g/dL (3.4-5.0); Albumin/Globulin Ratio 0.8 (0.8-1.8); Bilirubin, Total 0.5 mg/dL (0.1-1.0); Bun/Creatinine Ratio 28.8 (12.0-20.0); Calcium, Blood 9.3 mg/dL (8.5-10.1); Creatinine, Blood 1.84 mg/dL (0.40-1.00); Globulin, Blood 3.9 g/dL (2.2-4.0)
[2018-11-14] MEDS ORDERED: Macrodantin50 MG PO ×2 (21:26)
[2018-11-14] MEDS ORDERED: NEBI5 PO ×2 (21:27)
[2018-11-14] MEDS ORDERED: GAVILAX17 GM PO ×2 (21:28)
[2018-11-14 22:57] LABS: Source, Urine Catheter
[2018-11-14 23:00] LABS: Bilirubin, Urine Neg (Neg); Blood, Urine 5+ (Neg); Glucose Qualitative, Urine Neg (Neg); Ketones, Urine Neg (Neg); Leukocyte Esterase, Urine 3+ (Neg); Nitrite, Urine Neg (Neg); Protein, Urine 2+ (Neg); Urobilinogen, Urine NORM (Normal); pH, Urine 6.5 (5.0-8.0)
[2018-11-14 23:02] LABS: Appearance, Urine Hazy (Clear); Color, Urine Yellow (P-Yellow)
[2018-11-14 23:07] LABS: Bacteria Many /hpf; Squamous Epithelial Cells Few /hpf (Few); White Blood Cells, Urine 50-100 /hpf (0-5)
--- NOTE | 2018-11-15 03:58 | NUR ---
SHIFT SUMMARY PT ARRIVED TO FLOOR FROM ED IN NO DISTRESS. PT WAS FOUND TO HAD REDNESS NOTED ON HER BACK AND BUTTOCKS. PT REFERRED TO IT A HEAT RASH. PT COMPLAINED OF DISCOMFORT TO HER FEET. PT TX PER EMAR WITH REDUCTION IN PAIN. PT HAD NO OTHER ISSUES NOTED. PT CURRENTLY SLEEPING AND BREATHING EASY. CALL LIGHT IN REACH AND BED ALARM ON.
[2018-11-15 05:03] LABS: BASOPHILS ABSOLUTE AUTO 0.04 K/mm3 (0.00-0.23); BASOPHILS PERCENT AUTO 1 % (0-2); EOSINOPHILS ABSOLUTE AUTO 0.26 K/mm3 (0.00-0.68); EOSINOPHILS PERCENT AUTO 3 % (0-6); Hematocrit 27.8 % (33.0-51.0); Hemoglobin 8.3 g/dL (11.5-16.0); IMMATURE GRAN ABSOLUTE AUTO 0.04 K/mm3 (0.00-0.10); IMMATURE GRAN PERCENT AUTO 1 % (0-1); LYMPHOCYTES ABSOLUTE AUTO 1.29 K/mm3 (0.84-5.20); LYMPHOCYTES PERCENT AUTO 16 % (21-46); MONOCYTES ABSOLUTE AUTO 0.56 K/mm3 (0.16-1.47); MONOCYTES PERCENT AUTO 7 % (4-13); Mean Corpuscular HGB 25.9 pg (26.0-34.0); Mean Corpuscular HGB Conc 29.9 g/dL (31.5-36.5); Mean Corpuscular Volume 87 fL (80-100); Mean Platelet Volume 9.9 fL (9.1-12.4); NEUTROPHILS PERCENT AUTO 73 % (41-73); Platelet Count 441 K/mm3 (150-400); RDW Coefficient Variation 18.5 % (11.7-14.2); RDW Standard Deviation 57.5 fL (35.1-46.3); White Blood Cell Count 8.09 K/mm3 (4.00-11.30)
[2018-11-15 05:34] LABS: Albumin, Blood 3.1 g/dL (3.4-5.0); Albumin/Globulin Ratio 0.8 (0.8-1.8); Bilirubin, Total 0.5 mg/dL (0.1-1.0); Bun/Creatinine Ratio 33.1 (12.0-20.0); Calcium, Blood 8.9 mg/dL (8.5-10.1); Creatinine, Blood 1.39 mg/dL (0.40-1.00); Globulin, Blood 4.1 g/dL (2.2-4.0); Potassium, Blood 3.4 mmol/L (3.5-5.5); Total Protein, Blood 7.2 g/dL (6.4-8.2)
--- NOTE | 2018-11-15 10:37 | NUR ---
JOAQUIN IN PALLIATIVE CARE NOTIFIED OF NEED FOR CONSULT.
--- NOTE | 2018-11-15 16:31 | NUR ---
PLACED ON ROOM AIR APPROX 15MINS AGO; 02 SATS 99% ON RA AT THIS TIME.
--- NOTE | 2018-11-15 18:08 | NUR ---
SHIFT SUMMARY [id number] BEDREST. GR IN PLACE. INCONTINENT. MEDICATED FOR PAIN TO BILATERAL FEET. WOUNDS CLEANSED AND DRSG CHANGE COMPLETED ON WOUNDS TO LOWER EXT. PICC LINE TO REMAIN IN PLACE UPON DISCHARGE CONFIRMED WITH DR. PALMER.
== END 2018-11-15 19:04 | disposition home health service (06) ==
LOC: ER 14:18 → ERHOLD 14:19 → MEDS 20:30 → ENPENDDIS 11-15 15:01 → MEDS 11-15 19:04
PROVIDERS: Emergency Medicine; Family Medicine; ADMIT Hospitalist
DX: I95.9 Hypotension, unspecified (principal); E11.22 Type 2 diabetes mellitus with diabetic chronic kidney disease; N18.9 Chronic kidney disease, unspecified; E11.42 Type 2 diabetes mellitus with diabetic polyneuropathy; E11.51 Type 2 diabetes mellitus with diabetic peripheral angiopathy without gangrene; E11.621 Type 2 diabetes mellitus with foot ulcer; L97.421 Non-pressure chronic ulcer of left heel and midfoot limited to breakdown of skin; B95.62 Methicillin resistant Staphylococcus aureus infection as the cause of diseases classified elsewhere; I25.10 Atherosclerotic heart disease of native coronary artery without angina pectoris; J44.9 Chronic obstructive pulmonary disease, unspecified; E78.5 Hyperlipidemia, unspecified; Z88.0 Allergy status to penicillin; Z99.81 Dependence on supplemental oxygen; Z87.891 Personal history of nicotine dependence; Z88.2 Allergy status to sulfonamides; Z88.5 Allergy status to narcotic agent; Z79.02 Long term (current) use of antithrombotics/antiplatelets; Z79.899 Other long term (current) drug therapy; Z74.09 Other reduced mobility
CPT/HCPCS: 71045; 80053; 81001; 82947; 85025; 87077; 87086; 87186; 93005; 93010; 94640; 94760; 96361; 96372; 96374; 96375; 99285-25; A9270-GY; C9113; G0378; J1170; J1650; J7030

== ENCOUNTER 2018-11-25 07:37 | Day surgery (SDC) | payer OTHER ==
[~2018-11-25 07:37] MED LIST changes: +Ferrous Sulfat325 M2 SC; +GAVILAX17 GM PO; +Macrodantin50 MG PO
--- NOTE | 2018-11-25 19:22 | NUR ---
PT DISCHARGED FLUSH COMPLETED. IV DC'D WNL, PT UP WITH LIFT TO WHEELCHAIR. PORTAL O2 FROM HOME APPLIED + BELONGINGS AT SIDE. SON PUSHING PERSONAL WHEELCHAIR WITH BELONGINGS AT SIDE OUT TO PERSON VEHICLE.
[2019-02-04] MEDS ORDERED: INSULANPEN SC (13:30)
[2019-02-04] MEDS ORDERED: Humalog100 UNIT/1 (13:30)
[2019-02-04] MEDS ORDERED: Norco 10-325 T1 EACH PO (13:30)
[2019-02-04] MEDS ORDERED: MIRT15 PO (13:31)
[2019-02-04] MEDS ORDERED: ALBU3IS INH (13:31)
[2019-02-04] MEDS ORDERED: FLUT1DIS2 INH (13:31)
[2019-02-04] MEDS ORDERED: FURO40 PO (13:31)
[2019-02-04] MEDS ORDERED: GAVILAX17 GM PO (13:32)
[2019-02-04] MEDS ORDERED: PANT40 PO (13:32)
[2019-02-04] MEDS ORDERED: Calcium + Vita1 EACH PO (13:32)
[2019-02-04] MEDS ORDERED: LINE600 PO (13:33)
[2019-02-04] MEDS ORDERED: Ipratropium Bro30 ML (13:33)
[2019-02-04] MEDS ORDERED: Procrit2000 UNIT/ IM (13:33)
[2019-02-04] MEDS ORDERED: ZINC15 PO (13:34)
[2019-02-04] MEDS ORDERED: POTA8 PO (13:34)
[2019-02-04] MEDS ORDERED: DAILY VALUE1 EACH PO (13:34)
[2019-02-04] MEDS ORDERED: JUVEN PACKET1 EACH PO (13:35)
[2019-02-04] MEDS ORDERED: CARV6.25 PO (13:35)
[2019-02-17] MEDS ORDERED: PANT40 PO (12:22)
[2019-02-17] MEDS ORDERED: ATORVASTATIN CA40 MG PO (12:24)
[2019-02-17] MEDS ORDERED: DOXERCALCIFER0.5 MCG PO (12:25)
[2019-02-17] MEDS ORDERED: CLOP75 PO (12:25)
[2019-02-17] MEDS ORDERED: GABA100 PO (12:26)
[2019-02-17] MEDS ORDERED: NITR100CA PO (12:26)
[2019-02-17] MEDS ORDERED: THERA1 EACH PO (12:27)
== END 2018-11-25 19:15 | disposition home or self-care (01) ==
LOC: TRN 07:37 → ATC 07:37 → SURS 13:43 → ATC 14:30
DX: I12.9 Hypertensive chronic kidney disease with stage 1 through stage 4 chronic kidney disease, or unspecified chronic kidney disease (principal); N18.3 Chronic kidney disease, stage 3 (moderate); D63.1 Anemia in chronic kidney disease; N25.81 Secondary hyperparathyroidism of renal origin; R60.9 Edema, unspecified; D50.9 Iron deficiency anemia, unspecified; R80.9 Proteinuria, unspecified; E55.9 Vitamin D deficiency, unspecified
CPT/HCPCS: 36415; 36430; 82947; 86850; 86900; 86901; 86923; 96374; J1940; J7050; P9016

== ENCOUNTER 2018-11-27 13:58 | Day surgery (SDC) | payer OTHER ==
[2019-02-04] MEDS ORDERED: Humalog100 UNIT/1 (13:30)
[2019-02-04] MEDS ORDERED: INSULANPEN SC (13:30)
[2019-02-04] MEDS ORDERED: Norco 10-325 T1 EACH PO (13:30)
[2019-02-04] MEDS ORDERED: ALBU3IS INH (13:31)
[2019-02-04] MEDS ORDERED: FURO40 PO (13:31)
[2019-02-04] MEDS ORDERED: MIRT15 PO (13:31)
[2019-02-04] MEDS ORDERED: FLUT1DIS2 INH (13:31)
[2019-02-04] MEDS ORDERED: Calcium + Vita1 EACH PO (13:32)
[2019-02-04] MEDS ORDERED: PANT40 PO (13:32)
[2019-02-04] MEDS ORDERED: GAVILAX17 GM PO (13:32)
[2019-02-04] MEDS ORDERED: LINE600 PO (13:33)
[2019-02-04] MEDS ORDERED: Procrit2000 UNIT/ IM (13:33)
[2019-02-04] MEDS ORDERED: Ipratropium Bro30 ML (13:33)
[2019-02-04] MEDS ORDERED: POTA8 PO (13:34)
[2019-02-04] MEDS ORDERED: ZINC15 PO (13:34)
[2019-02-04] MEDS ORDERED: DAILY VALUE1 EACH PO (13:34)
[2019-02-04] MEDS ORDERED: CARV6.25 PO (13:35)
[2019-02-04] MEDS ORDERED: JUVEN PACKET1 EACH PO (13:35)
[2019-02-17] MEDS ORDERED: PANT40 PO (12:22)
[2019-02-17] MEDS ORDERED: ATORVASTATIN CA40 MG PO (12:24)
[2019-02-17] MEDS ORDERED: DOXERCALCIFER0.5 MCG PO (12:25)
[2019-02-17] MEDS ORDERED: CLOP75 PO (12:25)
[2019-02-17] MEDS ORDERED: NITR100CA PO (12:26)
[2019-02-17] MEDS ORDERED: GABA100 PO (12:26)
[2019-02-17] MEDS ORDERED: THERA1 EACH PO (12:27)
== END 2018-11-27 22:53 | disposition home or self-care (01) ==
LOC: WOUND
DX: E11.621 Type 2 diabetes mellitus with foot ulcer (principal); E11.622 Type 2 diabetes mellitus with other skin ulcer; L97.512 Non-pressure chronic ulcer of other part of right foot with fat layer exposed; L97.812 Non-pressure chronic ulcer of other part of right lower leg with fat layer exposed; L97.821 Non-pressure chronic ulcer of other part of left lower leg limited to breakdown of skin; L97.521 Non-pressure chronic ulcer of other part of left foot limited to breakdown of skin; L89.612 Pressure ulcer of right heel, stage 2; L89.892 Pressure ulcer of other site, stage 2; L89.620 Pressure ulcer of left heel, unstageable; L89.510 Pressure ulcer of right ankle, unstageable; L89.520 Pressure ulcer of left ankle, unstageable; E11.51 Type 2 diabetes mellitus with diabetic peripheral angiopathy without gangrene; I73.9 Peripheral vascular disease, unspecified; E11.42 Type 2 diabetes mellitus with diabetic polyneuropathy; E11.59 Type 2 diabetes mellitus with other circulatory complications; E11.40 Type 2 diabetes mellitus with diabetic neuropathy, unspecified; I13.2 Hypertensive heart and chronic kidney disease with heart failure and with stage 5 chronic kidney disease, or end stage renal disease; E11.22 Type 2 diabetes mellitus with diabetic chronic kidney disease; N18.6 End stage renal disease; I50.9 Heart failure, unspecified; I25.10 Atherosclerotic heart disease of native coronary artery without angina pectoris; J44.9 Chronic obstructive pulmonary disease, unspecified; D50.9 Iron deficiency anemia, unspecified; F03.90 Unspecified dementia, unspecified severity, without behavioral disturbance, psychotic disturbance, mood disturbance, and anxiety; Z86.73 Personal history of transient ischemic attack (TIA), and cerebral infarction without residual deficits
CPT/HCPCS: 73590; 73630

== ENCOUNTER 2018-12-01 21:51 | Inpatient (IN) | payer OTHER ==
[~2018-12-01] VITALS: Ht 160 cm; Wt 73.5 kg
[2018-12-01 22:09] LABS: BASOPHILS ABSOLUTE AUTO 0.03 K/mm3 (0.00-0.23); BASOPHILS PERCENT AUTO 0 % (0-2); EOSINOPHILS PERCENT AUTO 2 % (0-6); Hemoglobin 9.4 g/dL (11.5-16.0); IMMATURE GRAN ABSOLUTE AUTO 0.05 K/mm3 (0.00-0.10); IMMATURE GRAN PERCENT AUTO 0 % (0-1); LYMPHOCYTES PERCENT AUTO 13 % (21-46); MONOCYTES ABSOLUTE AUTO 0.75 K/mm3 (0.16-1.47); MONOCYTES PERCENT AUTO 6 % (4-13); Mean Corpuscular HGB 27.2 pg (26.0-34.0); Mean Corpuscular HGB Conc 32.4 g/dL (31.5-36.5); Mean Corpuscular Volume 84 fL (80-100); Mean Platelet Volume 9.4 fL (9.1-12.4); NEUTROPHILS ABSOLUTE AUTO 10.69 K/mm3 (1.96-9.15); NEUTROPHILS PERCENT AUTO 80 % (41-73); Platelet Count 303 K/mm3 (150-400); RDW Coefficient Variation 16.2 % (11.7-14.2); Red Blood Cell Count 3.45 M/mm3 (3.80-5.20); White Blood Cell Count 13.42 K/mm3 (4.00-11.30)
[2018-12-01 22:33] LABS: Alanine Aminotransfer (ALT/SGP 15 U/L (12-78); Albumin, Blood 3.1 g/dL (3.4-5.0); Albumin/Globulin Ratio 0.7 (0.8-1.8); Alk Phos 69 U/L (50-136); Anion Gap 7 mmol/L (6-16); Aspartate Aminotrans (AST/SGOT 31 U/L (12-37); Bilirubin, Total 0.5 mg/dL (0.1-1.0); Blood Urea Nitrogen 34 mg/dL (8-24); Bun/Creatinine Ratio 37.3 (12.0-20.0); CO2, Blood 27 mmol/L (21-32); Calcium, Blood 9.2 mg/dL (8.5-10.1); Chloride, Blood 93 mmol/L (98-108); Creatinine, Blood 0.91 mg/dL (0.40-1.00); Ethanol (Alcohol), Blood, Med <3 mg/dL; Free Thyroxine 1.15 ng/dL (0.70-1.60); Globulin, Blood 4.3 g/dL (2.2-4.0); Glomerular Filtration Rate >60 (60-); Glucose, Blood 135 mg/dL (70-99); Potassium, Blood 4.8 mmol/L (3.5-5.5); Salicylate <1.7 mg/dL (2.8-20.0); Sodium, Blood 127 mmol/L (136-145); Total Protein, Blood 7.4 g/dL (6.4-8.2)
[2018-12-01 22:35] LABS: Triiodothyronine, Free 2.01 pg/mL (2.18-3.98)
[2018-12-01 22:44] LABS: Acetaminophen, Random <2.0 ug/mL (10.0-30.0)
[2018-12-01 22:53] LABS: Source, Urine Clean Catch
[2018-12-01 22:59] LABS: Bilirubin, Urine Neg (Neg); Blood, Urine 3+ (Neg); Glucose Qualitative, Urine Neg (Neg); Ketones, Urine Neg (Neg); Leukocyte Esterase, Urine 3+ (Neg); Nitrite, Urine Neg (Neg); Protein, Urine Neg (Neg); Urobilinogen, Urine NORM (Normal); pH, Urine 6.5 (5.0-8.0)
[2018-12-01 23:05] LABS: Appearance, Urine Hazy (Clear); Color, Urine Yellow (P-Yellow)
[2018-12-01 23:07] LABS: Amorphous Light (0-Heavy); Bacteria Mod /hpf; Squamous Epithelial Cells Rare /hpf (Few); White Blood Cells, Urine TNTC /hpf (0-5)
[2018-12-01 23:14] LABS: U Amphetamine Screen Not Detected; U Barbituate Screen Not Detected; U Benzodiazapine Screen Not Detected; U Buprenorphine Screen Not Detected; U Cannabinoids Screen Not Detected; U Cocaine Screen Not Detected; U Methadone Screen Not Detected; U Methamphetamine Screen Not Detected; U Opiates Screen DETECTED; U Oxycodone Screen Not Detected; U Phencyclidine Screen Not Detected; U Propoxyphene Screen Not Detected
[2018-12-02 11:06] LABS: Hematocrit 30.4 % (33.0-51.0); Hemoglobin 9.6 g/dL (11.5-16.0); Mean Corpuscular HGB 27.1 pg (26.0-34.0); Mean Corpuscular HGB Conc 31.6 g/dL (31.5-36.5); Mean Corpuscular Volume 86 fL (80-100); Mean Platelet Volume 8.9 fL (9.1-12.4); Platelet Count 253 K/mm3 (150-400); RDW Coefficient Variation 16.1 % (11.7-14.2); Red Blood Cell Count 3.54 M/mm3 (3.80-5.20); White Blood Cell Count 10.03 K/mm3 (4.00-11.30)
[2018-12-02 12:01] LABS: Albumin/Globulin Ratio 0.8 (0.8-1.8); Bilirubin, Total 0.4 mg/dL (0.1-1.0); Bun/Creatinine Ratio 33.5 (12.0-20.0); Calcium, Blood 9.1 mg/dL (8.5-10.1); Creatinine, Blood 0.96 mg/dL (0.40-1.00); Potassium, Blood 4.3 mmol/L (3.5-5.5)
[2018-12-03 04:20] LABS: BASOPHILS ABSOLUTE AUTO 0.04 K/mm3 (0.00-0.23); BASOPHILS PERCENT AUTO 0 % (0-2); EOSINOPHILS ABSOLUTE AUTO 0.13 K/mm3 (0.00-0.68); EOSINOPHILS PERCENT AUTO 1 % (0-6); Hemoglobin 9.5 g/dL (11.5-16.0); IMMATURE GRAN ABSOLUTE AUTO 0.03 K/mm3 (0.00-0.10); IMMATURE GRAN PERCENT AUTO 0 % (0-1); LYMPHOCYTES ABSOLUTE AUTO 1.34 K/mm3 (0.84-5.20); LYMPHOCYTES PERCENT AUTO 14 % (21-46); MONOCYTES ABSOLUTE AUTO 0.63 K/mm3 (0.16-1.47); MONOCYTES PERCENT AUTO 7 % (4-13); Mean Corpuscular HGB 26.7 pg (26.0-34.0); Mean Corpuscular HGB Conc 31.7 g/dL (31.5-36.5); Mean Corpuscular Volume 84 fL (80-100); NEUTROPHILS ABSOLUTE AUTO 7.48 K/mm3 (1.96-9.15); NEUTROPHILS PERCENT AUTO 78 % (41-73); Platelet Count 271 K/mm3 (150-400); RDW Coefficient Variation 16.6 % (11.7-14.2); RDW Standard Deviation 50.7 fL (35.1-46.3); Red Blood Cell Count 3.56 M/mm3 (3.80-5.20); White Blood Cell Count 9.65 K/mm3 (4.00-11.30)
[2018-12-03 04:39] LABS: Alanine Aminotransfer (ALT/SGP 13 U/L (12-78); Albumin, Blood 2.9 g/dL (3.4-5.0); Albumin/Globulin Ratio 0.7 (0.8-1.8); Alk Phos 75 U/L (50-136); Anion Gap 6 mmol/L (6-16); Aspartate Aminotrans (AST/SGOT 12 U/L (12-37); Bilirubin, Total 0.4 mg/dL (0.1-1.0); Blood Urea Nitrogen 28 mg/dL (8-24); Bun/Creatinine Ratio 31.5 (12.0-20.0); CO2, Blood 29 mmol/L (21-32); Calcium, Blood 9.4 mg/dL (8.5-10.1); Chloride, Blood 100 mmol/L (98-108); Creatinine, Blood 0.89 mg/dL (0.40-1.00); Globulin, Blood 4.3 g/dL (2.2-4.0); Glomerular Filtration Rate >60 (60-); Glucose, Blood 106 mg/dL (70-99); Potassium, Blood 4.1 mmol/L (3.5-5.5); Sodium, Blood 135 mmol/L (136-145); Total Protein, Blood 7.2 g/dL (6.4-8.2)
[2018-12-03] MEDS ORDERED: FERROUS SULFATE SC (08:26)
[2018-12-07 04:46] LABS: BASOPHILS ABSOLUTE AUTO 0.04 K/mm3 (0.00-0.23); BASOPHILS PERCENT AUTO 0 % (0-2); EOSINOPHILS PERCENT AUTO 2 % (0-6); Hematocrit 30.8 % (33.0-51.0); Hemoglobin 9.5 g/dL (11.5-16.0); IMMATURE GRAN ABSOLUTE AUTO 0.04 K/mm3 (0.00-0.10); IMMATURE GRAN PERCENT AUTO 0 % (0-1); LYMPHOCYTES ABSOLUTE AUTO 1.78 K/mm3 (0.84-5.20); LYMPHOCYTES PERCENT AUTO 18 % (21-46); MONOCYTES ABSOLUTE AUTO 0.68 K/mm3 (0.16-1.47); MONOCYTES PERCENT AUTO 7 % (4-13); Mean Corpuscular HGB 27.1 pg (26.0-34.0); Mean Corpuscular HGB Conc 30.8 g/dL (31.5-36.5); Mean Platelet Volume 9.4 fL (9.1-12.4); NEUTROPHILS ABSOLUTE AUTO 7.38 K/mm3 (1.96-9.15); NEUTROPHILS PERCENT AUTO 73 % (41-73); Platelet Count 293 K/mm3 (150-400); RDW Coefficient Variation 16.5 % (11.7-14.2); RDW Standard Deviation 52.6 fL (35.1-46.3); Red Blood Cell Count 3.51 M/mm3 (3.80-5.20); White Blood Cell Count 10.12 K/mm3 (4.00-11.30)
[2018-12-07 04:47] LABS: Mean Corpuscular Volume 88 fL (80-100)
[2018-12-07 05:09] LABS: Alanine Aminotransfer (ALT/SGP 20 U/L (12-78); Albumin, Blood 3.1 g/dL (3.4-5.0); Albumin/Globulin Ratio 0.7 (0.8-1.8); Alk Phos 78 U/L (50-136); Anion Gap 6 mmol/L (6-16); Aspartate Aminotrans (AST/SGOT 8 U/L (12-37); Bilirubin, Total 0.5 mg/dL (0.1-1.0); Blood Urea Nitrogen 69 mg/dL (8-24); Bun/Creatinine Ratio 84.7 (12.0-20.0); CO2, Blood 29 mmol/L (21-32); Calcium, Blood 10.2 mg/dL (8.5-10.1); Chloride, Blood 99 mmol/L (98-108); Creatinine, Blood 0.82 mg/dL (0.40-1.00); Globulin, Blood 4.4 g/dL (2.2-4.0); Glomerular Filtration Rate >60 (60-); Glucose, Blood 340 mg/dL (70-99); Magnesium, Blood 2.2 mg/dL (1.6-2.4); Phosphorus, Blood 2.6 mg/dL (2.5-4.9); Potassium, Blood 4.9 mmol/L (3.5-5.5); Sodium, Blood 134 mmol/L (136-145); Total Protein, Blood 7.5 g/dL (6.4-8.2)
[2018-12-08 05:57] LABS: Alanine Aminotransfer (ALT/SGP 21 U/L (12-78); Albumin, Blood 2.8 g/dL (3.4-5.0); Albumin/Globulin Ratio 0.7 (0.8-1.8); Alk Phos 71 U/L (50-136); Anion Gap 7 mmol/L (6-16); Aspartate Aminotrans (AST/SGOT 13 U/L (12-37); Bilirubin, Total 0.4 mg/dL (0.1-1.0); Blood Urea Nitrogen 78 mg/dL (8-24); Bun/Creatinine Ratio 91.2 (12.0-20.0); CO2, Blood 30 mmol/L (21-32); Calcium, Blood 10.4 mg/dL (8.5-10.1); Chloride, Blood 100 mmol/L (98-108); Creatinine, Blood 0.86 mg/dL (0.40-1.00); Globulin, Blood 4.2 g/dL (2.2-4.0); Glomerular Filtration Rate >60 (60-); Glucose, Blood 212 mg/dL (70-99); Potassium, Blood 4.5 mmol/L (3.5-5.5); Sodium, Blood 137 mmol/L (136-145)
[2018-12-09 05:31] LABS: BASOPHILS ABSOLUTE AUTO 0.04 K/mm3 (0.00-0.23); BASOPHILS PERCENT AUTO 0 % (0-2); EOSINOPHILS ABSOLUTE AUTO 0.23 K/mm3 (0.00-0.68); EOSINOPHILS PERCENT AUTO 3 % (0-6); Hematocrit 26.8 % (33.0-51.0); Hemoglobin 8.4 g/dL (11.5-16.0); IMMATURE GRAN ABSOLUTE AUTO 0.05 K/mm3 (0.00-0.10); IMMATURE GRAN PERCENT AUTO 1 % (0-1); LYMPHOCYTES ABSOLUTE AUTO 1.84 K/mm3 (0.84-5.20); LYMPHOCYTES PERCENT AUTO 20 % (21-46); MONOCYTES ABSOLUTE AUTO 0.59 K/mm3 (0.16-1.47); MONOCYTES PERCENT AUTO 6 % (4-13); Mean Corpuscular HGB 26.7 pg (26.0-34.0); Mean Corpuscular HGB Conc 31.3 g/dL (31.5-36.5); Mean Platelet Volume 9.5 fL (9.1-12.4); NEUTROPHILS ABSOLUTE AUTO 6.44 K/mm3 (1.96-9.15); NEUTROPHILS PERCENT AUTO 70 % (41-73); Platelet Count 300 K/mm3 (150-400); RDW Coefficient Variation 16.4 % (11.7-14.2); RDW Standard Deviation 50.4 fL (35.1-46.3); Red Blood Cell Count 3.15 M/mm3 (3.80-5.20); White Blood Cell Count 9.19 K/mm3 (4.00-11.30)
[2018-12-09 05:45] LABS: Mean Corpuscular Volume 85 fL (80-100)
[2018-12-09 05:51] LABS: Alanine Aminotransfer (ALT/SGP 17 U/L (12-78); Albumin, Blood 2.9 g/dL (3.4-5.0); Albumin/Globulin Ratio 0.7 (0.8-1.8); Alk Phos 79 U/L (50-136); Anion Gap 5 mmol/L (6-16); Aspartate Aminotrans (AST/SGOT 8 U/L (12-37); Bilirubin, Total 0.4 mg/dL (0.1-1.0); Blood Urea Nitrogen 70 mg/dL (8-24); Bun/Creatinine Ratio 81.1 (12.0-20.0); CO2, Blood 29 mmol/L (21-32); Calcium, Blood 10.1 mg/dL (8.5-10.1); Chloride, Blood 101 mmol/L (98-108); Creatinine, Blood 0.86 mg/dL (0.40-1.00); Globulin, Blood 4.1 g/dL (2.2-4.0); Glomerular Filtration Rate >60 (60-); Glucose, Blood 210 mg/dL (70-99); Potassium, Blood 4.5 mmol/L (3.5-5.5); Sodium, Blood 135 mmol/L (136-145)
[2018-12-10 07:33] LABS: BASOPHILS ABSOLUTE AUTO 0.03 K/mm3 (0.00-0.23); BASOPHILS PERCENT AUTO 0 % (0-2); EOSINOPHILS ABSOLUTE AUTO 0.21 K/mm3 (0.00-0.68); EOSINOPHILS PERCENT AUTO 3 % (0-6); Hematocrit 27.5 % (33.0-51.0); Hemoglobin 8.6 g/dL (11.5-16.0); IMMATURE GRAN ABSOLUTE AUTO 0.02 K/mm3 (0.00-0.10); IMMATURE GRAN PERCENT AUTO 0 % (0-1); LYMPHOCYTES PERCENT AUTO 19 % (21-46); MONOCYTES ABSOLUTE AUTO 0.58 K/mm3 (0.16-1.47); MONOCYTES PERCENT AUTO 7 % (4-13); Mean Corpuscular HGB 27.5 pg (26.0-34.0); Mean Corpuscular HGB Conc 31.3 g/dL (31.5-36.5); Mean Platelet Volume 9.9 fL (9.1-12.4); NEUTROPHILS ABSOLUTE AUTO 5.84 K/mm3 (1.96-9.15); NEUTROPHILS PERCENT AUTO 71 % (41-73); Platelet Count 300 K/mm3 (150-400); RDW Coefficient Variation 16.8 % (11.7-14.2); RDW Standard Deviation 53.5 fL (35.1-46.3); Red Blood Cell Count 3.13 M/mm3 (3.80-5.20); White Blood Cell Count 8.28 K/mm3 (4.00-11.30)
[2018-12-10 07:39] LABS: Mean Corpuscular Volume 88 fL (80-100)
[2018-12-10 07:47] LABS: Anion Gap 5 mmol/L (6-16); Blood Urea Nitrogen 48 mg/dL (8-24); Bun/Creatinine Ratio 61.4 (12.0-20.0); CO2, Blood 29 mmol/L (21-32); Chloride, Blood 105 mmol/L (98-108); Creatinine, Blood 0.78 mg/dL (0.40-1.00); Glomerular Filtration Rate >60 (60-); Glucose, Blood 173 mg/dL (70-99); Potassium, Blood 4.3 mmol/L (3.5-5.5); Sodium, Blood 139 mmol/L (136-145)
[2018-12-11 05:55] LABS: BASOPHILS ABSOLUTE AUTO 0.03 K/mm3 (0.00-0.23); BASOPHILS PERCENT AUTO 0 % (0-2); EOSINOPHILS ABSOLUTE AUTO 0.32 K/mm3 (0.00-0.68); EOSINOPHILS PERCENT AUTO 4 % (0-6); Hemoglobin 7.7 g/dL (11.5-16.0); IMMATURE GRAN ABSOLUTE AUTO 0.03 K/mm3 (0.00-0.10); IMMATURE GRAN PERCENT AUTO 0 % (0-1); LYMPHOCYTES ABSOLUTE AUTO 2.33 K/mm3 (0.84-5.20); LYMPHOCYTES PERCENT AUTO 27 % (21-46); MONOCYTES ABSOLUTE AUTO 0.61 K/mm3 (0.16-1.47); MONOCYTES PERCENT AUTO 7 % (4-13); Mean Corpuscular HGB 26.8 pg (26.0-34.0); Mean Corpuscular HGB Conc 30.8 g/dL (31.5-36.5); Mean Corpuscular Volume 87 fL (80-100); Mean Platelet Volume 10.1 fL (9.1-12.4); NEUTROPHILS ABSOLUTE AUTO 5.42 K/mm3 (1.96-9.15); NEUTROPHILS PERCENT AUTO 62 % (41-73); Platelet Count 329 K/mm3 (150-400); RDW Coefficient Variation 16.5 % (11.7-14.2); RDW Standard Deviation 52.6 fL (35.1-46.3); Red Blood Cell Count 2.87 M/mm3 (3.80-5.20); White Blood Cell Count 8.74 K/mm3 (4.00-11.30)
[2018-12-11 06:21] LABS: Anion Gap 4 mmol/L (6-16); Blood Urea Nitrogen 60 mg/dL (8-24); Bun/Creatinine Ratio 68.2 (12.0-20.0); CO2, Blood 29 mmol/L (21-32); Calcium, Blood 9.7 mg/dL (8.5-10.1); Chloride, Blood 104 mmol/L (98-108); Creatinine, Blood 0.88 mg/dL (0.40-1.00); Glomerular Filtration Rate >60 (60-); Glucose, Blood 144 mg/dL (70-99); Potassium, Blood 4.5 mmol/L (3.5-5.5); Sodium, Blood 137 mmol/L (136-145)
[2018-12-12 06:23] LABS: BASOPHILS ABSOLUTE AUTO 0.04 K/mm3 (0.00-0.23); BASOPHILS PERCENT AUTO 0 % (0-2); EOSINOPHILS ABSOLUTE AUTO 0.22 K/mm3 (0.00-0.68); EOSINOPHILS PERCENT AUTO 2 % (0-6); Hematocrit 26.5 % (33.0-51.0); Hemoglobin 8.2 g/dL (11.5-16.0); IMMATURE GRAN ABSOLUTE AUTO 0.06 K/mm3 (0.00-0.10); IMMATURE GRAN PERCENT AUTO 1 % (0-1); LYMPHOCYTES ABSOLUTE AUTO 2.39 K/mm3 (0.84-5.20); LYMPHOCYTES PERCENT AUTO 26 % (21-46); MONOCYTES ABSOLUTE AUTO 0.58 K/mm3 (0.16-1.47); MONOCYTES PERCENT AUTO 6 % (4-13); Mean Corpuscular HGB 27.6 pg (26.0-34.0); Mean Corpuscular HGB Conc 30.9 g/dL (31.5-36.5); Mean Corpuscular Volume 89 fL (80-100); Mean Platelet Volume 9.8 fL (9.1-12.4); NEUTROPHILS PERCENT AUTO 65 % (41-73); Platelet Count 332 K/mm3 (150-400); RDW Coefficient Variation 16.7 % (11.7-14.2); RDW Standard Deviation 54.5 fL (35.1-46.3); Red Blood Cell Count 2.97 M/mm3 (3.80-5.20); White Blood Cell Count 9.29 K/mm3 (4.00-11.30)
[2018-12-12 06:34] LABS: Bun/Creatinine Ratio 53.3 (12.0-20.0); Calcium, Blood 9.8 mg/dL (8.5-10.1); Creatinine, Blood 1.05 mg/dL (0.40-1.00); Potassium, Blood 4.4 mmol/L (3.5-5.5)
[2018-12-13 03:16] LABS: BASOPHILS ABSOLUTE AUTO 0.04 K/mm3 (0.00-0.23); BASOPHILS PERCENT AUTO 0 % (0-2); EOSINOPHILS ABSOLUTE AUTO 0.11 K/mm3 (0.00-0.68); EOSINOPHILS PERCENT AUTO 1 % (0-6); Hematocrit 24.3 % (33.0-51.0); Hemoglobin 7.7 g/dL (11.5-16.0); IMMATURE GRAN ABSOLUTE AUTO 0.04 K/mm3 (0.00-0.10); IMMATURE GRAN PERCENT AUTO 0 % (0-1); LYMPHOCYTES ABSOLUTE AUTO 1.51 K/mm3 (0.84-5.20); LYMPHOCYTES PERCENT AUTO 13 % (21-46); MONOCYTES ABSOLUTE AUTO 0.65 K/mm3 (0.16-1.47); MONOCYTES PERCENT AUTO 6 % (4-13); Mean Corpuscular HGB 27.1 pg (26.0-34.0); Mean Corpuscular HGB Conc 31.7 g/dL (31.5-36.5); Mean Corpuscular Volume 86 fL (80-100); Mean Platelet Volume 10.1 fL (9.1-12.4); NEUTROPHILS PERCENT AUTO 80 % (41-73); Platelet Count 340 K/mm3 (150-400); RDW Coefficient Variation 16.4 % (11.7-14.2); RDW Standard Deviation 51.5 fL (35.1-46.3); Red Blood Cell Count 2.84 M/mm3 (3.80-5.20); White Blood Cell Count 11.45 K/mm3 (4.00-11.30)
[2018-12-13 03:32] LABS: Anion Gap 4 mmol/L (6-16); Blood Urea Nitrogen 44 mg/dL (8-24); Bun/Creatinine Ratio 54.2 (12.0-20.0); CO2, Blood 28 mmol/L (21-32); Calcium, Blood 9.5 mg/dL (8.5-10.1); Chloride, Blood 108 mmol/L (98-108); Creatinine, Blood 0.81 mg/dL (0.40-1.00); Glomerular Filtration Rate >60 (60-); Glucose, Blood 136 mg/dL (70-99); Sodium, Blood 140 mmol/L (136-145)
[2018-12-14 06:06] LABS: BASOPHILS ABSOLUTE AUTO 0.05 K/mm3 (0.00-0.23); BASOPHILS PERCENT AUTO 1 % (0-2); EOSINOPHILS ABSOLUTE AUTO 0.16 K/mm3 (0.00-0.68); EOSINOPHILS PERCENT AUTO 2 % (0-6); Hematocrit 34.4 % (33.0-51.0); Hemoglobin 11.2 g/dL (11.5-16.0); IMMATURE GRAN ABSOLUTE AUTO 0.07 K/mm3 (0.00-0.10); IMMATURE GRAN PERCENT AUTO 1 % (0-1); LYMPHOCYTES ABSOLUTE AUTO 2.49 K/mm3 (0.84-5.20); LYMPHOCYTES PERCENT AUTO 24 % (21-46); MONOCYTES ABSOLUTE AUTO 0.89 K/mm3 (0.16-1.47); MONOCYTES PERCENT AUTO 9 % (4-13); Mean Corpuscular HGB 28.1 pg (26.0-34.0); Mean Corpuscular HGB Conc 32.6 g/dL (31.5-36.5); Mean Corpuscular Volume 86 fL (80-100); Mean Platelet Volume 10.4 fL (9.1-12.4); NEUTROPHILS ABSOLUTE AUTO 6.58 K/mm3 (1.96-9.15); NEUTROPHILS PERCENT AUTO 64 % (41-73); Platelet Count 352 K/mm3 (150-400); RDW Coefficient Variation 15.9 % (11.7-14.2); RDW Standard Deviation 50.2 fL (35.1-46.3); Red Blood Cell Count 3.98 M/mm3 (3.80-5.20); White Blood Cell Count 10.24 K/mm3 (4.00-11.30)
[2018-12-14 06:37] LABS: Albumin, Blood 2.9 g/dL (3.4-5.0); Albumin/Globulin Ratio 0.7 (0.8-1.8); Bilirubin, Total 1.1 mg/dL (0.1-1.0); Bun/Creatinine Ratio 51.9 (12.0-20.0); Calcium, Blood 9.7 mg/dL (8.5-10.1); Creatinine, Blood 0.98 mg/dL (0.40-1.00); Potassium, Blood 3.6 mmol/L (3.5-5.5); Total Protein, Blood 6.9 g/dL (6.4-8.2)
[2018-12-14] MEDS ORDERED: Neurontin 100100 MG PO (11:14)
[2018-12-14] MEDS ORDERED: Juven1 EACH PO (11:19)
[2018-12-14] MEDS ORDERED: DOCU100 PO (11:20)
[2018-12-14] MEDS ORDERED: Fruity C250 MG PO (11:20)
[2018-12-14] MEDS ORDERED: BISA10S PR (11:20)
[2018-12-14] MEDS ORDERED: ENOX40I SC (11:21)
[2018-12-14] MEDS ORDERED: THERA1 EACH PO (11:21)
[2018-12-14] MEDS ORDERED: Pedi-Dri 100,0060 GM TOP (11:22)
[2018-12-14] MEDS ORDERED: ZINC220 PO (11:22)
[2019-02-04] MEDS ORDERED: Norco 10-325 T1 EACH PO (13:30)
[2019-02-04] MEDS ORDERED: INSULANPEN SC (13:30)
[2019-02-04] MEDS ORDERED: Humalog100 UNIT/1 (13:30)
[2019-02-04] MEDS ORDERED: ALBU3IS INH (13:31)
[2019-02-04] MEDS ORDERED: FLUT1DIS2 INH (13:31)
[2019-02-04] MEDS ORDERED: FURO40 PO (13:31)
[2019-02-04] MEDS ORDERED: MIRT15 PO (13:31)
[2019-02-04] MEDS ORDERED: PANT40 PO (13:32)
[2019-02-04] MEDS ORDERED: GAVILAX17 GM PO (13:32)
[2019-02-04] MEDS ORDERED: Calcium + Vita1 EACH PO (13:32)
[2019-02-04] MEDS ORDERED: Ipratropium Bro30 ML (13:33)
[2019-02-04] MEDS ORDERED: Procrit2000 UNIT/ IM (13:33)
[2019-02-04] MEDS ORDERED: LINE600 PO (13:33)
[2019-02-04] MEDS ORDERED: ZINC15 PO (13:34)
[2019-02-04] MEDS ORDERED: DAILY VALUE1 EACH PO (13:34)
[2019-02-04] MEDS ORDERED: POTA8 PO (13:34)
[2019-02-04] MEDS ORDERED: JUVEN PACKET1 EACH PO (13:35)
[2019-02-04] MEDS ORDERED: CARV6.25 PO (13:35)
[2019-02-17] MEDS ORDERED: PANT40 PO (12:22)
[2019-02-17] MEDS ORDERED: ATORVASTATIN CA40 MG PO (12:24)
[2019-02-17] MEDS ORDERED: DOXERCALCIFER0.5 MCG PO (12:25)
[2019-02-17] MEDS ORDERED: CLOP75 PO (12:25)
[2019-02-17] MEDS ORDERED: NITR100CA PO (12:26)
[2019-02-17] MEDS ORDERED: GABA100 PO (12:26)
[2019-02-17] MEDS ORDERED: THERA1 EACH PO (12:27)
== END 2018-12-14 12:16 | DRG 673 ==
LOC: ER 21:51 → ERHOLD 12-02 00:12 → ICUE 12-02 00:12 → MEDS 12-02 00:12 → ICUE 12-02 12:45 → MEDS 12-04 14:25 → PCU 12-12 14:47 → ICUW 12-12 17:07 → MEDS 12-13 16:49 → ENPENDDIS 12-14 11:31 → MEDS 12-14 12:16
PROVIDERS: Emergency Medicine; Hospitalist; Internal Medicine; Student in an Organized Health Care Education/Training Program; ADMIT Internal Medicine
PROC: 30233N1 Transfusion of Nonautologous Red Blood Cells into Peripheral Vein, Percutaneous Approach (ICD-10-PCS; principal; 2018-12-12)
PROC: 04CL3ZZ Extirpation of Matter from Left Femoral Artery, Percutaneous Approach (ICD-10-PCS; 2018-12-12)
PROC: 04CN3ZZ Extirpation of Matter from Left Popliteal Artery, Percutaneous Approach (ICD-10-PCS; 2018-12-12)
PROC: 047N3Z1 Dilation of Left Popliteal Artery using Drug-Coated Balloon, Percutaneous Approach (ICD-10-PCS; 2018-12-12)
PROC: 047L3Z1 Dilation of Left Femoral Artery using Drug-Coated Balloon, Percutaneous Approach (ICD-10-PCS; 2018-12-12)
PROC: 047S3Z1 Dilation of Left Posterior Tibial Artery using Drug-Coated Balloon, Percutaneous Approach (ICD-10-PCS; 2018-12-12)
PROC: 047J3DZ Dilation of Left External Iliac Artery with Intraluminal Device, Percutaneous Approach (ICD-10-PCS; 2018-12-12)
DX: T83.511A Infection and inflammatory reaction due to indwelling urethral catheter, initial encounter (principal); A41.9 Sepsis, unspecified organism; E43 Unspecified severe protein-calorie malnutrition; G93.41 Metabolic encephalopathy; I69.354 Hemiplegia and hemiparesis following cerebral infarction affecting left non-dominant side; L97.909 Non-pressure chronic ulcer of unspecified part of unspecified lower leg with unspecified severity; E87.1 Hypo-osmolality and hyponatremia; K50.90 Crohn's disease, unspecified, without complications; D62 Acute posthemorrhagic anemia; N39.0 Urinary tract infection, site not specified; Z68.32 Body mass index [BMI] 32.0-32.9, adult; R40.2431 Glasgow coma scale score 3-8, in the field [EMT or ambulance]; E11.649 Type 2 diabetes mellitus with hypoglycemia without coma; Z79.4 Long term (current) use of insulin; E11.51 Type 2 diabetes mellitus with diabetic peripheral angiopathy without gangrene; I25.10 Atherosclerotic heart disease of native coronary artery without angina pectoris; J44.9 Chronic obstructive pulmonary disease, unspecified; Z74.01 Bed confinement status; I12.9 Hypertensive chronic kidney disease with stage 1 through stage 4 chronic kidney disease, or unspecified chronic kidney disease; E11.22 Type 2 diabetes mellitus with diabetic chronic kidney disease; N18.3 Chronic kidney disease, stage 3 (moderate); E78.5 Hyperlipidemia, unspecified; K21.9 Gastro-esophageal reflux disease without esophagitis; Z86.718 Personal history of other venous thrombosis and embolism; M81.0 Age-related osteoporosis without current pathological fracture; B96.5 Pseudomonas (aeruginosa) (mallei) (pseudomallei) as the cause of diseases classified elsewhere; N31.9 Neuromuscular dysfunction of bladder, unspecified; L30.4 Erythema intertrigo; D63.1 Anemia in chronic kidney disease; Z87.891 Personal history of nicotine dependence; I70.249 Atherosclerosis of native arteries of left leg with ulceration of unspecified site
CPT/HCPCS: 36415; 36430; 37225; 37228; 37236; 51702; 70450; 70551; 71045; 75625; 75716; 75774; 80048; 80053; 81001; 82306; 82652; 82947; 83605; 83735; 83970; 84100; 84439; 84443; 84481; 85025; 85027; 85347; 86850; 86900; 86901; 86923; 87040; 87077; 87086; 87186; 93005; 93010; 94640; 94760; 96361-59; 96372-59; 96374-59; 97110; 97161; 97530; 99152; 99153; 99285-25; A9270-GY; C1714; C1760; C1769; C1874; C1876; C1884; C1887; C1894; C2623; G0480; J0360; J0696; J0713; J1644; J1650; J1940; J2250; J2720; J3010; J7030; J7050; P9016; Q9967

== ENCOUNTER 2018-12-31 17:50 | Observation (INO) | payer OTHER ==
[~2018-12-31 17:50] MED LIST changes: +ENOX40I SC; +FERROUS SULFATE SC; +Fruity C250 MG PO; +Juven1 EACH PO; +Neurontin 100100 MG PO; +THERA1 EACH PO; +ZINC220 PO
--- NOTE | 2018-12-31 19:28 | NUR ---
180 PT DIRECT ADMIT FOR INFUSION OF 2 UNITS PRBC. PT ARRIVED FROM [facility] VIA W/C, LIFT SHEET UNDER PT, LIFT USED TO ASSIST PT TO BED. 183 DR. MERRITT IN TO ASSESS PT, ASSISTED WITH ASSESS WOUNDS, WOUNDS REDRESSED BY THIS RN. PLAN IS FOR PT TO RECIEVE 2 UNITS PRBC AND THEN RETURN TO [facility].
--- NOTE | 2019-01-01 01:43 | NUR ---
PT RECIEVED FIRST UNIT OF BLOOD WITHOUT PROBLEMS. vss. no s/s transfusion reaction
[2019-01-01 05:02] LABS: BASOPHILS ABSOLUTE AUTO 0.04 K/mm3 (0.00-0.23); BASOPHILS PERCENT AUTO 0 % (0-2); EOSINOPHILS ABSOLUTE AUTO 0.45 K/mm3 (0.00-0.68); EOSINOPHILS PERCENT AUTO 4 % (0-6); Hematocrit 31.3 % (33.0-51.0); Hemoglobin 10.1 g/dL (11.5-16.0); IMMATURE GRAN ABSOLUTE AUTO 0.07 K/mm3 (0.00-0.10); IMMATURE GRAN PERCENT AUTO 1 % (0-1); LYMPHOCYTES PERCENT AUTO 16 % (21-46); MONOCYTES ABSOLUTE AUTO 0.81 K/mm3 (0.16-1.47); MONOCYTES PERCENT AUTO 8 % (4-13); Mean Corpuscular HGB 27.9 pg (26.0-34.0); Mean Corpuscular HGB Conc 32.3 g/dL (31.5-36.5); Mean Corpuscular Volume 87 fL (80-100); Mean Platelet Volume 9.5 fL (9.1-12.4); NEUTROPHILS ABSOLUTE AUTO 7.28 K/mm3 (1.96-9.15); NEUTROPHILS PERCENT AUTO 70 % (41-73); Platelet Count 318 K/mm3 (150-400); RDW Coefficient Variation 15.2 % (11.7-14.2); RDW Standard Deviation 48.5 fL (35.1-46.3); Red Blood Cell Count 3.62 M/mm3 (3.80-5.20); White Blood Cell Count 10.35 K/mm3 (4.00-11.30)
[2019-01-01 05:34] LABS: Anion Gap 8 mmol/L (6-16); Blood Urea Nitrogen 36 mg/dL (8-24); Bun/Creatinine Ratio 47.2 (12.0-20.0); CO2, Blood 27 mmol/L (21-32); Calcium, Blood 9.4 mg/dL (8.5-10.1); Chloride, Blood 97 mmol/L (98-108); Creatinine, Blood 0.76 mg/dL (0.40-1.00); Glomerular Filtration Rate >60 (60-); Glucose, Blood 74 mg/dL (70-99); Potassium, Blood 4.2 mmol/L (3.5-5.5); Sodium, Blood 132 mmol/L (136-145)
--- NOTE | 2019-01-01 07:17 | NUR ---
shift summary: pt recieved 2 units of blood during the shift for anemia. No problems or reactions noted. Coloring much better after finished. Pt transferred to wheel chair via lift after blood finished. Pt transferred back to long-term at 0530., VSS.
[2019-02-04] MEDS ORDERED: Norco 10-325 T1 EACH PO (13:30)
[2019-02-04] MEDS ORDERED: INSULANPEN SC (13:30)
[2019-02-04] MEDS ORDERED: Humalog100 UNIT/1 (13:30)
[2019-02-04] MEDS ORDERED: MIRT15 PO (13:31)
[2019-02-04] MEDS ORDERED: ALBU3IS INH (13:31)
[2019-02-04] MEDS ORDERED: FURO40 PO (13:31)
[2019-02-04] MEDS ORDERED: FLUT1DIS2 INH (13:31)
[2019-02-04] MEDS ORDERED: GAVILAX17 GM PO (13:32)
[2019-02-04] MEDS ORDERED: PANT40 PO (13:32)
[2019-02-04] MEDS ORDERED: Calcium + Vita1 EACH PO (13:32)
[2019-02-04] MEDS ORDERED: Ipratropium Bro30 ML (13:33)
[2019-02-04] MEDS ORDERED: Procrit2000 UNIT/ IM (13:33)
[2019-02-04] MEDS ORDERED: LINE600 PO (13:33)
[2019-02-04] MEDS ORDERED: DAILY VALUE1 EACH PO (13:34)
[2019-02-04] MEDS ORDERED: ZINC15 PO (13:34)
[2019-02-04] MEDS ORDERED: POTA8 PO (13:34)
[2019-02-04] MEDS ORDERED: CARV6.25 PO (13:35)
[2019-02-04] MEDS ORDERED: JUVEN PACKET1 EACH PO (13:35)
[2019-02-17] MEDS ORDERED: PANT40 PO (12:22)
[2019-02-17] MEDS ORDERED: ATORVASTATIN CA40 MG PO (12:24)
[2019-02-17] MEDS ORDERED: DOXERCALCIFER0.5 MCG PO (12:25)
[2019-02-17] MEDS ORDERED: CLOP75 PO (12:25)
[2019-02-17] MEDS ORDERED: NITR100CA PO (12:26)
[2019-02-17] MEDS ORDERED: GABA100 PO (12:26)
[2019-02-17] MEDS ORDERED: THERA1 EACH PO (12:27)
== END 2019-01-01 05:29 ==
LOC: MEDS 17:50
PROVIDERS: ADMIT Internal Medicine
DX: D64.9 Anemia, unspecified (principal); E11.22 Type 2 diabetes mellitus with diabetic chronic kidney disease; N18.3 Chronic kidney disease, stage 3 (moderate); E11.51 Type 2 diabetes mellitus with diabetic peripheral angiopathy without gangrene; I73.9 Peripheral vascular disease, unspecified; G81.94 Hemiplegia, unspecified affecting left nondominant side
CPT/HCPCS: 36415; 36430; 80048; 82947; 85025; 86850; 86900; 86901; 86923; 94640; 94760; 96374; A9270-GY; G0378; J1940; J7030; P9016

== ENCOUNTER 2019-01-17 13:42 | Day surgery (SDC) | payer OTHER ==
--- NOTE | 2019-01-17 14:34 | NUR ---
PT ARRIVED FROM [facility] FOR BLOOD INFUSION, SHE WAS ASSISTED TO BY X 2 ASSIST AND WAS ORIENTED TO ROOM AND NURSING STAFF. PT IS A/O X 3. PT IS RESTING IN BED WITH CALL LIGHT IN REACH.
[2019-01-17] MEDS ORDERED: POTA8 PO (15:04)
[2019-01-17] MEDS ORDERED: CALCIUM 600 +1 EA11 PO (15:05)
[2019-01-17] MEDS ORDERED: XARELTO15 MG PO (15:05)
[2019-02-04] MEDS ORDERED: INSULANPEN SC (13:30)
[2019-02-04] MEDS ORDERED: Humalog100 UNIT/1 (13:30)
[2019-02-04] MEDS ORDERED: Norco 10-325 T1 EACH PO (13:30)
[2019-02-04] MEDS ORDERED: FURO40 PO (13:31)
[2019-02-04] MEDS ORDERED: MIRT15 PO (13:31)
[2019-02-04] MEDS ORDERED: FLUT1DIS2 INH (13:31)
[2019-02-04] MEDS ORDERED: ALBU3IS INH (13:31)
[2019-02-04] MEDS ORDERED: Calcium + Vita1 EACH PO (13:32)
[2019-02-04] MEDS ORDERED: GAVILAX17 GM PO (13:32)
[2019-02-04] MEDS ORDERED: PANT40 PO (13:32)
[2019-02-04] MEDS ORDERED: Ipratropium Bro30 ML (13:33)
[2019-02-04] MEDS ORDERED: Procrit2000 UNIT/ IM (13:33)
[2019-02-04] MEDS ORDERED: LINE600 PO (13:33)
[2019-02-04] MEDS ORDERED: ZINC15 PO (13:34)
[2019-02-04] MEDS ORDERED: DAILY VALUE1 EACH PO (13:34)
[2019-02-04] MEDS ORDERED: POTA8 PO (13:34)
[2019-02-04] MEDS ORDERED: JUVEN PACKET1 EACH PO (13:35)
[2019-02-04] MEDS ORDERED: CARV6.25 PO (13:35)
[2019-02-17] MEDS ORDERED: PANT40 PO (12:22)
[2019-02-17] MEDS ORDERED: ATORVASTATIN CA40 MG PO (12:24)
[2019-02-17] MEDS ORDERED: DOXERCALCIFER0.5 MCG PO (12:25)
[2019-02-17] MEDS ORDERED: CLOP75 PO (12:25)
[2019-02-17] MEDS ORDERED: NITR100CA PO (12:26)
[2019-02-17] MEDS ORDERED: GABA100 PO (12:26)
[2019-02-17] MEDS ORDERED: THERA1 EACH PO (12:27)
== END 2019-01-17 19:13 | disposition home or self-care (01) ==
LOC: TRN 13:42 → ENPENDDIS 14:39 → TRN 19:13 → MEDS 19:13 → EDSTATUS 01-24 14:33
DX: I12.9 Hypertensive chronic kidney disease with stage 1 through stage 4 chronic kidney disease, or unspecified chronic kidney disease (principal); N18.2 Chronic kidney disease, stage 2 (mild); D63.1 Anemia in chronic kidney disease
CPT/HCPCS: 36430; 86850; 86900; 86901; 86923; J1940; J7050; P9016

== ENCOUNTER 2019-02-12 12:36 | Day surgery (SDC) | payer OTHER ==
[~2019-02-12] VITALS: Ht 160 cm; Wt 79.5 kg
[~2019-02-12 12:36] MED LIST changes: +CALCIUM 600 +1 EA11 PO; +Calcium + Vita1 EACH PO; +DAILY VALUE1 EACH PO; +FLUT1DIS2 INH; +Humalog100 UNIT/1; +Ipratropium Bro30 ML; +JUVEN PACKET1 EACH PO; +LINE600 PO; +Norco 10-325 T1 EACH PO; +POTA8 PO; +Procrit2000 UNIT/ IM; +XARELTO15 MG PO; +ZINC15 PO
--- NOTE | 2019-02-12 13:38 | NUR ---
02/12/19 1338 Radha Weber FIRST IV ATTEMPT IN RIGHT HAND WAS UNSUCCESSFUL. SECOND ATTEMPT IN RIGHT AC WAS SUCCESSFUL AND TOLERATED WELL. BOTH BY [facility].KDG
--- NOTE | 2019-02-12 16:58 | NUR ---
02/12/19 3304 Soledad Smith LATE ENTRY: PT REQUIRES FULL DEL LIFT BEFORE AND AFTER PROCEDURE. IN PLACING A DIAPER ON PT IT REQUIRED A 2 PERSON ASSIST. WITH THE DEL LIFE IT REQUIRED A 4 PERSON ASSIST AND TOOK OVER 30 MINUTES TO GET THE PT POSITIONED IN HER W/C WITH HER BOTTOM ALL THE WAY BACK. PT WAS IN NO DISTRESS DURING THE TRANSFER AND WAS TRANSFERRED SAFELY. DEL SLING IS THE PT'S SO IT WAS LEFT UNDER HER FOR TRANSPORT TO THE [facility]. PT'S OWN BLANKETS PLACED ON HER AND HER OWN PILLOWS PLACED UNDER HER LEGS IN W/C. PT HAS PO FLUID AND COOKIES W/O NAUSEA. PT STABLE FOR TRANSPORT TO CARE FACILITY.
[2019-02-17] MEDS ORDERED: PANT40 PO (12:22)
[2019-02-17] MEDS ORDERED: ATORVASTATIN CA40 MG PO (12:24)
[2019-02-17] MEDS ORDERED: CLOP75 PO (12:25)
[2019-02-17] MEDS ORDERED: DOXERCALCIFER0.5 MCG PO (12:25)
[2019-02-17] MEDS ORDERED: NITR100CA PO (12:26)
[2019-02-17] MEDS ORDERED: GABA100 PO (12:26)
[2019-02-17] MEDS ORDERED: THERA1 EACH PO (12:27)
== END 2019-02-12 16:31 | disposition home or self-care (01) ==
LOC: ORSCSDS 12:36
PROVIDERS: Internal Medicine Gastroenterology
PROC: 0DBK8ZX Excision of Ascending Colon, Via Natural or Artificial Opening Endoscopic, Diagnostic (ICD-10-PCS; principal; 2019-02-12 15:00)
PROC: 0DBE8ZX Excision of Large Intestine, Via Natural or Artificial Opening Endoscopic, Diagnostic (ICD-10-PCS; principal; 2019-02-12 15:00)
PROC: 0DB68ZX Excision of Stomach, Via Natural or Artificial Opening Endoscopic, Diagnostic (ICD-10-PCS; principal; 2019-02-12 15:00)
DX: D50.9 Iron deficiency anemia, unspecified (principal); R19.5 Other fecal abnormalities; R68.81 Early satiety; K29.70 Gastritis, unspecified, without bleeding; Z86.010 Personal history of colon polyps; K57.30 Diverticulosis of large intestine without perforation or abscess without bleeding; Z80.0 Family history of malignant neoplasm of digestive organs; D12.2 Benign neoplasm of ascending colon; J44.9 Chronic obstructive pulmonary disease, unspecified; E11.9 Type 2 diabetes mellitus without complications; Z86.73 Personal history of transient ischemic attack (TIA), and cerebral infarction without residual deficits; I25.10 Atherosclerotic heart disease of native coronary artery without angina pectoris; Z79.4 Long term (current) use of insulin; Z79.899 Other long term (current) drug therapy
CPT/HCPCS: 82947; 87081; 88305; 88342; J2250; J2704; J7120

== ENCOUNTER 2019-02-14 13:58 | Day surgery (SDC) | payer OTHER ==
--- NOTE | 2019-02-14 17:55 | NUR ---
ATC PT. SENT UP TO MED FLOOR FOR 1 UNIT PRBC TRANSFUSION. ARRIVE TO ROOM APPROX 1430 VIA W/C. STATE HX STROKE w L SIDED PARALYSIS, UNABLE TO AMBULATE. STATE HAS BEEN RESIDING @ [facility]. LIFT SHEET UNDER PT, ASSISTED TO BED VIA LIFT. MEMS INTEGRATION ENGINEER IN TO PLACE 22 GA IV R AC. LAB IN FOR TYPE/CROSS. BLOOD SENT OT FLOOR APPROX 1600, STARTED APPROX 1615. LASIX 40MG IV GIVEN APPROX MIDWAY TRANSFUSION 1730. GR CATH PATENT, 1000 ML URINE DRAINED @ THIS TIME. PRBC TRANSFUSION CONTINUES. ADA DIET ORDERED/MEMS INTEGRATION ENGINEER ALEX. VSS. LUNGS CLEAR DECREASED, O2 @ 2L.
[2019-02-17] MEDS ORDERED: PANT40 PO (12:22)
[2019-02-17] MEDS ORDERED: ATORVASTATIN CA40 MG PO (12:24)
[2019-02-17] MEDS ORDERED: CLOP75 PO (12:25)
[2019-02-17] MEDS ORDERED: DOXERCALCIFER0.5 MCG PO (12:25)
[2019-02-17] MEDS ORDERED: GABA100 PO (12:26)
[2019-02-17] MEDS ORDERED: NITR100CA PO (12:26)
[2019-02-17] MEDS ORDERED: THERA1 EACH PO (12:27)
== END 2019-02-14 21:32 ==
LOC: ATC 13:58 → TRN 13:58 → MEDS 13:59 → ATC 21:32
DX: I12.9 Hypertensive chronic kidney disease with stage 1 through stage 4 chronic kidney disease, or unspecified chronic kidney disease (principal); N18.2 Chronic kidney disease, stage 2 (mild); D63.1 Anemia in chronic kidney disease; N25.81 Secondary hyperparathyroidism of renal origin; E11.21 Type 2 diabetes mellitus with diabetic nephropathy; D50.9 Iron deficiency anemia, unspecified; E55.9 Vitamin D deficiency, unspecified
CPT/HCPCS: 36430; 86850; 86900; 86901; 86923; J1940; J7050; P9016

== ENCOUNTER 2019-02-18 06:27 | Inpatient (IN) | payer OTHER ==
[~2019-02-18] VITALS: Ht 160 cm; Wt 78.0 kg
[~2019-02-18 06:27] MED LIST changes: +ATORVASTATIN CA40 MG PO; +GABA100 PO
--- NOTE | 2019-02-18 12:30 | NUR ---
INITIAL ASSESSMENT PATIENT ARRIVED TO UNIT FROM NEWSPAPER INSERTER AT 1220. PATIENT ALERT AND ORIENTED X 4, AFEBRILE. PATIENT PALE AND COOL TO TOUCH. PATIENT COMPLAINS OF LOWER BACK AND BILAT LEG PAIN. PATIENT HAS LEFT SIDED WEAKNESS FROM PAST CVA. LEFT HAND CONTRACTED- BRACE IN PLACE. PATIENT STATES SHE IS WHEELCHAIR BOUND AT HOME. PATIENT SATTING 90% AND GREATER ON RA. LUNGS CLEAR IN UPPER LOBES, DIMINISHED IN LOWER LOBES. PATIENT STATES SHE HAD OCCASIONAL COUGH, PRODUCING MODERATE AMOUNT OF THIN, YELLOW SPUTUM. PATIENT IN ST, HR IN THE LOW 100S. BP STABLE. CAP REFILL OVER 3 SECONDS IN FEET. ALL PULSES 1+ IN STRENGTH. GENERALIZED EDEMA NOTED. 1+ EDEMA NOTED IN BLES. GI WNL- LAST BM YESTERDAY. CHRONIC GR IN PLACE DRAINING YELLOW URINE WITH SEDIMENT NOTED. ANGIOSEAL TO LEFT GROIN SITE. SMALL HEMATOMA AND BRUISE TO AREA. NO BLEEDING NOTED. NEWSPAPER INSERTER RNS STATE THAT SITE REMAINS UNCHANGED SINCE LEAVING NEWSPAPER INSERTER. R POPLITEAL SITE WNL- NO BLEEDING, BRUISING, HEMATOMA NOTED. NEWSPAPER INSERTER RNS REPORT THAT PATIENT HAD DRUG ELUTING BALLOONING PERFORMED IN LAB. PATIENT HAS WOUNDS TO BILAT LEGS- AREAS CLEANSED AND NEW DRESSINGS APPLIED. IV FLUSHED AND SALINE LOCKED. PATIENT ORIENTED TO UNIT, ROOM AND CALL SYSTEM. BED LOW, CALL LIGHT IN REACH. WILL CONTINUE TO MONITOR PATIENT FREQUENTLY THROUGHOUT SHIFT.
--- NOTE | 2019-02-18 16:24 | NUR ---
DR. CANCHOLA IN TO SEE PATIENT.
[2019-02-18 17:50] LABS: Source, Urine Catheter
[2019-02-18 18:02] LABS: Bilirubin, Urine Neg (Neg); Blood, Urine 3+ (Neg); Glucose Qualitative, Urine Neg (Neg); Ketones, Urine Neg (Neg); Leukocyte Esterase, Urine 3+ (Neg); Nitrite, Urine Neg (Neg); Protein, Urine Neg (Neg); Urobilinogen, Urine NORM (Normal)
[2019-02-18 18:29] LABS: Appearance, Urine Hazy (Clear); Color, Urine Yellow (P-Yellow)
[2019-02-18 18:32] LABS: White Blood Cells, Urine 25-50 /hpf (0-5)
[2019-02-18 18:33] LABS: Bacteria Many /hpf; Squamous Epithelial Cells Mod /hpf (Few)
--- NOTE | 2019-02-18 18:59 | NUR ---
SHIFT SUMMARY PATIENT SLEPT MOST OF THE SHIFT AFTER RECEIVING PRN PAIN MEDICATION FOR COMPLAINT OF PAIN IN LOWER BACK AND BILAT LEGS. PATIENT HAD NO MORE COMPLAINTS OF PAIN T/O SHIFT. PATIENT REMAINED ALERT AND ORIENTED X 4, AFEBRILE. PATIENT CONTINUED TO HAVE LEFT SIDED DEFICIT FROM PAST CVA. PATIENT REMAINED SATTING 90% AND GREATER ON RA. PATIENT REMAINED IN SR TO ST, HR 90S TO LOW 100S. SBP 90S TO 140S. PULSES REMAINED 1+ IN STRENGTH. PATIENT IS NOW WARM TO TOUCH. GI REMAINED WNL. CHRONIC GR REMOVED, NEW GR INSERTED AND UA SENT TO LAB. URINE SHOWS POSITIVE LEUKOCYTES AND BACTERIA. R POPLITEAL SITE REMAINS WNL, NO CHANGES. LEFT FEMORAL SITE REMAINS UNCHANGED- CONTINUES TO HAVE THE SMALL HEMATOMA AND BRUISE THAT IT DID SINCE ADMIT. DR. CANCHOLA WAS DOWN HERE AND FELT IT WELL AND WAS NOT CONCERNED. BED LOW, CALL LIGHT IN REACH. REPORT WILL BE GIVEN TO ASSUMING BUSINESS STRATEGIST NURSE SHORTLY.
--- NOTE | 2019-02-18 20:28 | NUR ---
ASSUMED CARE OF PT, REPORT RCV'D FROM FLORIN RENEE. PT DROWSY BUT AROUSABLE, ORIENTED TO TIME/PLACE/SELF/SITUATION. LEFT FEMORAL ACCESS SITE WITH SMALL UNCHANGED HEMATOMA PRESENT, NO SIGN OF NEW BLEEDING OR WORSENING HEMATOMA-ANGIOSEAL IN PLACE. RIGHT POPLITEAL ACCESS SITE SOFT, [id number] IN PLACE. FOULD-SMELLING WOUNDS TO BLE (R ANKLE, L FOOT, L HEEL, L CROWDER) WOUNDS CLEANED AND DRESSING CHANGED BY DAYSHIFT NURSE. DRESSINGS REMAIN C/D/I. 1+ PITTING EDEMA BLE. PT'S LEFT HAND CONTRACTED AND LEFT SIDED UPPER/LOWER WEAKNESS R/T PREVIOUS CVA. PT HAS CHRONIC GR (CHANGED 02/18/19) DRAINING YELLOW URINE WITH SEDIMENT. PT TEMP 99.4 WITH ALL VSS. SEE FULL EXTENDED RECOVERY ASSESSMENT.
[2019-02-19] MEDS ORDERED: FLUT1DIS5 INH (05:01)
[2019-02-19] MEDS ORDERED: HYDR1TAB94 PO (05:01)
[2019-02-19] MEDS ORDERED: ZINC220 PO (05:01)
--- NOTE | 2019-02-19 06:10 | NUR ---
SHIFT SUMMARY NO ACUTE CHANGES OVERNIGHT. LEFT FEMORAL AND RIGHT POPLITEAL ACCESS SITES REMAIN UNCHANGED. PT HAD PERIODS OF HYPOTENSION FOLLOWING ADMINISTRATION OF PRESCRIBED [place]. PT APPEARED VERY SEDATED AND WAS DIFFICULT TO AROUSE. PT IS CURRENTLT ALERT AND ORIENTED, BLOOD PRESSURE WNL AND EASILY AROUSABLE. PT FEBRILE WITH TMAX 99.6. WILL REPORT TO DAYSHIFT NURSE.
--- NOTE | 2019-02-19 08:00 | NUR ---
CARE ASSUMED CARE AND REPORT ASSUMED FROM LOE CATHERINE. PT SLEEPING BUT EASILY AROUSABLE. C/O PAIN TO R LEG; ELEVATED ON PILLOW PROVIDED PAIN RELIEF. VSS. TEMP 99.5. BP STABLE. [place], HR 100-115. IV SALINE LOCKED. PT SWALLOWED PILLS WITHOUT ANY DIFFICULTY. ORIENTED TO PERSON AND PLACE. SURROUNDING ECCHYMOSIS AROUND L GROIN SURGICAL SITE BUT NO BLEEDING OR OOZING. R POPLITEAL SITE CLEAN AND DRY. CALL LIGHT WITHIN REACH. WILL CONTINUE TO MONITOR.
--- NOTE | 2019-02-19 12:16 | NUR ---
REASSESSMENT PT REMAINS IN BED. IN NO ACUTE DISTRESS. VSS. NSR, HR 90S. PT RECIEVED BEDBATH AND LINEN CHANGE. MEPILEX DRESSING APPLIED TO SACRUM. PT TURNED AND HOB ELEVATED. IV SALINE LOCKED. REFUSED LUNCH AT THIS TIME. WILL CONTINUE TO MONITOR.
--- NOTE | 2019-02-19 17:30 | NUR ---
TRANSFER PT TRANSFERRED TO MEDICAL FLOOR, ROOM 330. VSS. FINISHED EATING DINNER PRIOR TO LEAVING UNIT.
--- NOTE | 2019-02-19 18:17 | NUR ---
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
--- NOTE | 2019-02-19 22:49 | NUR ---
ROMEO informed me that he got jennifer's blood sugar, but as of right now i dont see the information entered into the computer..
--- NOTE | 2019-02-19 23:46 | NUR ---
iv not working, pulled, challenging to start new took 4 tries
--- NOTE | 2019-02-20 04:31 | NUR ---
catheter amount was 525ml's
[2019-02-20 05:30] LABS: BASOPHILS ABSOLUTE AUTO 0.05 K/mm3 (0.00-0.23); BASOPHILS PERCENT AUTO 0 % (0-2); EOSINOPHILS ABSOLUTE AUTO 0.04 K/mm3 (0.00-0.68); EOSINOPHILS PERCENT AUTO 0 % (0-6); Hematocrit 25.2 % (33.0-51.0); Hemoglobin 8.1 g/dL (11.5-16.0); IMMATURE GRAN ABSOLUTE AUTO 0.15 K/mm3 (0.00-0.10); IMMATURE GRAN PERCENT AUTO 1 % (0-1); LYMPHOCYTES ABSOLUTE AUTO 1.62 K/mm3 (0.84-5.20); LYMPHOCYTES PERCENT AUTO 7 % (21-46); MONOCYTES ABSOLUTE AUTO 1.13 K/mm3 (0.16-1.47); MONOCYTES PERCENT AUTO 5 % (4-13); Mean Corpuscular HGB 27.6 pg (26.0-34.0); Mean Corpuscular HGB Conc 32.1 g/dL (31.5-36.5); Mean Platelet Volume 9.7 fL (9.1-12.4); NEUTROPHILS PERCENT AUTO 87 % (41-73); Platelet Count 293 K/mm3 (150-400); RDW Coefficient Variation 13.7 % (11.7-14.2); RDW Standard Deviation 42.8 fL (35.1-46.3); Red Blood Cell Count 2.94 M/mm3 (3.80-5.20); White Blood Cell Count 22.09 K/mm3 (4.00-11.30)
[2019-02-20 05:31] LABS: Mean Corpuscular Volume 86 fL (80-100)
[2019-02-20 05:47] LABS: Albumin, Blood 2.6 g/dL (3.4-5.0); Anion Gap 9 mmol/L (6-16); Blood Urea Nitrogen 47 mg/dL (8-24); Bun/Creatinine Ratio 34.8 (12.0-20.0); CO2, Blood 27 mmol/L (21-32); Calcium, Blood 9.2 mg/dL (8.5-10.1); Chloride, Blood 101 mmol/L (98-108); Creatinine, Blood 1.35 mg/dL (0.40-1.00); Glomerular Filtration Rate 40 (60-); Glucose, Blood 209 mg/dL (70-99); Phosphorus, Blood 3.2 mg/dL (2.5-4.9); Potassium, Blood 3.9 mmol/L (3.5-5.5); Sodium, Blood 137 mmol/L (136-145)
--- NOTE | 2019-02-20 06:36 | NUR ---
repositioned and cleaned frequently, call light in reach on strong side, rm air, saline locked new IV, no major changes noted during shift, will continue to monitor and treat until complet bsr with day shift
[2019-02-20 09:41] LABS: Source, Urine Catheter
[2019-02-20 09:52] LABS: Bilirubin, Urine Neg (Neg); Blood, Urine 3+ (Neg); Glucose Qualitative, Urine Neg (Neg); Ketones, Urine Neg (Neg); Leukocyte Esterase, Urine 3+ (Neg); Nitrite, Urine Pos (Neg); Protein, Urine 2+ (Neg); Specific Gravity, Urine 1.005 (1.003-1.022); Urobilinogen, Urine NORM (Normal)
[2019-02-20 10:19] LABS: Appearance, Urine Hazy (Clear); Color, Urine Yellow (P-Yellow)
[2019-02-20 10:21] LABS: White Blood Cells, Urine TNTC /hpf (0-5)
[2019-02-20 10:22] LABS: Bacteria Many /hpf; Transitional Epithelial Cells Few /hpf (0-Rare)
[2019-02-20 10:23] LABS: Squamous Epithelial Cells Mod /hpf (Few)
--- NOTE | 2019-02-20 18:41 | NUR ---
PT STARTED THE SHIFT (O730) WITH ELEVATED TEMP AND HR, 100.2/111. PT WITH SEVERAL BLANKETS IN PLACE, REMOVED. RECHECKED TEMP AT 0835, 100.4/112. MSG LEFT ON DR PHAN CELL PHONE REGARDING VS AND REQUESTING TYLENOL. ORDERS PLACED BY DR MERRITT, BLOOD CULTURES, UA, CXR AND TYLENOL. PT RECEIVED TYLENOL AT 1018 WITH TEMP STILL AT 100.4. RECHECKED AT 1115, TEMP 99.0. AFTERNOON VITALS AT 1430 TEMP OF 97.8. PT REMAINS WEAK AND LETHARGIC, DOES WAKE WITH SPEECH AND TOUCH. SAYS SHE IS VERY TIRED. WILL CONTINUE TO MONITOR AND REPORT TO ONCOMING RN
--- NOTE | 2019-02-21 07:03 | NUR ---
NOC SHIFT SUMMARY PT IS VERY SLEEPY. SHE HAS SLEPT THIS ENTIRE NIGHT WITH EXCEPTION OF DURING Q2HOUR TURNS AND ATTENDS CHANGES WHICH AWAKEN HER. SHE IS COOPERATIVE WITH CARE. HAS HAD MULTIPLE LOOSE STOOLS THIS NIGHT. SHE IS 88% ON ROOM AIR. HIGH 90S ON 2LNC. NO ACUTE CHANGES NOTED THIS NIGHT. VSS. DRESSINGS C/D/I. MEPILEX APPLIED TO COCCYX. REPORT TO ONCOMING RN.
[2019-02-21 08:55] LABS: BASOPHILS ABSOLUTE AUTO 0.09 K/mm3 (0.00-0.23); BASOPHILS PERCENT AUTO 0 % (0-2); EOSINOPHILS ABSOLUTE AUTO 0.01 K/mm3 (0.00-0.68); EOSINOPHILS PERCENT AUTO 0 % (0-6); Hematocrit 26.8 % (33.0-51.0); Hemoglobin 8.7 g/dL (11.5-16.0); IMMATURE GRAN ABSOLUTE AUTO 0.82 K/mm3 (0.00-0.10); IMMATURE GRAN PERCENT AUTO 2 % (0-1); LYMPHOCYTES ABSOLUTE AUTO 1.89 K/mm3 (0.84-5.20); LYMPHOCYTES PERCENT AUTO 5 % (21-46); MONOCYTES ABSOLUTE AUTO 1.47 K/mm3 (0.16-1.47); MONOCYTES PERCENT AUTO 4 % (4-13); Mean Corpuscular HGB 27.8 pg (26.0-34.0); Mean Corpuscular HGB Conc 32.5 g/dL (31.5-36.5); Mean Corpuscular Volume 86 fL (80-100); Mean Platelet Volume 9.8 fL (9.1-12.4); NEUTROPHILS ABSOLUTE AUTO 32.11 K/mm3 (1.96-9.15); NEUTROPHILS PERCENT AUTO 88 % (41-73); Platelet Count 317 K/mm3 (150-400); RDW Coefficient Variation 13.9 % (11.7-14.2); RDW Standard Deviation 43.7 fL (35.1-46.3); Red Blood Cell Count 3.13 M/mm3 (3.80-5.20); White Blood Cell Count 36.39 K/mm3 (4.00-11.30)
[2019-02-21 11:41] LABS: Albumin, Blood 2.4 g/dL (3.4-5.0); Anion Gap 8 mmol/L (6-16); Blood Urea Nitrogen 53 mg/dL (8-24); Bun/Creatinine Ratio 36.3 (12.0-20.0); CO2, Blood 27 mmol/L (21-32); Calcium, Blood 9.7 mg/dL (8.5-10.1); Chloride, Blood 103 mmol/L (98-108); Creatinine, Blood 1.46 mg/dL (0.40-1.00); Glomerular Filtration Rate 36 (60-); Glucose, Blood 190 mg/dL (70-99); Phosphorus, Blood 3.2 mg/dL (2.5-4.9); Potassium, Blood 3.6 mmol/L (3.5-5.5); Sodium, Blood 138 mmol/L (136-145)
--- NOTE | 2019-02-21 18:38 | NUR ---
PT AFEBRILE THIS SHIFT. NEW IV PLACED TO LEFT FOREARM AND IV FLUIDS STARTED. PT DROWSY BUT MORE ALERT TODAY THAN YESTERDAY. NO ACUTE CHANGES NOTED THIS SHIFT, WILL CONTINUE TO MONITOR AND REPORT TO ONCOMING RN
[2019-02-22 05:09] LABS: BASOPHILS ABSOLUTE AUTO 0.04 K/mm3 (0.00-0.23); BASOPHILS PERCENT AUTO 0 % (0-2); EOSINOPHILS ABSOLUTE AUTO 0.06 K/mm3 (0.00-0.68); EOSINOPHILS PERCENT AUTO 0 % (0-6); Hematocrit 23.9 % (33.0-51.0); Hemoglobin 7.6 g/dL (11.5-16.0); IMMATURE GRAN ABSOLUTE AUTO 0.28 K/mm3 (0.00-0.10); IMMATURE GRAN PERCENT AUTO 1 % (0-1); LYMPHOCYTES ABSOLUTE AUTO 1.53 K/mm3 (0.84-5.20); LYMPHOCYTES PERCENT AUTO 5 % (21-46); MONOCYTES ABSOLUTE AUTO 1.35 K/mm3 (0.16-1.47); MONOCYTES PERCENT AUTO 5 % (4-13); Mean Corpuscular HGB 28.1 pg (26.0-34.0); Mean Corpuscular HGB Conc 31.8 g/dL (31.5-36.5); NEUTROPHILS ABSOLUTE AUTO 25.71 K/mm3 (1.96-9.15); NEUTROPHILS PERCENT AUTO 89 % (41-73); Platelet Count 333 K/mm3 (150-400); RDW Standard Deviation 45.5 fL (35.1-46.3); White Blood Cell Count 28.97 K/mm3 (4.00-11.30)
[2019-02-22 05:14] LABS: Mean Corpuscular Volume 89 fL (80-100)
[2019-02-22 05:32] LABS: Albumin, Blood 2.3 g/dL (3.4-5.0); Anion Gap 6 mmol/L (6-16); Blood Urea Nitrogen 55 mg/dL (8-24); Bun/Creatinine Ratio 42.6 (12.0-20.0); CO2, Blood 27 mmol/L (21-32); Calcium, Blood 9.2 mg/dL (8.5-10.1); Chloride, Blood 107 mmol/L (98-108); Creatinine, Blood 1.29 mg/dL (0.40-1.00); Glomerular Filtration Rate 42 (60-); Glucose, Blood 195 mg/dL (70-99); Phosphorus, Blood 2.3 mg/dL (2.5-4.9); Potassium, Blood 3.6 mmol/L (3.5-5.5); Sodium, Blood 140 mmol/L (136-145)
--- NOTE | 2019-02-22 06:14 | NUR ---
SHIFT SUMMARY PT IS AN 83 Y/O FEMALE, ADMITTED FOR PVD AND NONHEALING WOUNDS ON HER LLE. SHE IS A&O X 2, THOUGH HAS BEEN VERY LETHARGIC DURING THE NIGHT, ONLY SOMEWHAT WAKING TO VOICE AND ONLY SPEAKING IN ONE TO TWO WORDS BEFORE FALLING BACK ASLEEP. BEDTIME MEDS WERE HELD PT WAS NOT AWARE ENOUGH TO SAFELY SWALLOW. NO COMPLAINTS OF PAIN, NAUSEA OR SOB, JUST THAT SHE WAS "TIRED". VITALS WERE STABLE. PT RECEIVED CONTINUOUS FLUIDS, NS + K @ 100 ML/HR. PT'S L ARM IS SIGNIFICANTLY SWOLLEN, +3, AND LARGER THAN HER R ARM. NO OTHER ACUTE CHANGES IN PT CONDITION NOTED. WILL CONTINUE TO MONITOR AND TREAT PER EMAR UNTIL HAND OFF TO DAY SHIFT RN.
--- NOTE | 2019-02-22 16:27 | NUR ---
PT IS ALERT, ORIENTED TO SELF AND FAMILY ONLY, PT HAS BEEN DROWST/LETHARIG FOR MOST OF THE DAY, PT WOKE UP SOME FOR BREAKFAST AND LUNCH OTHER BARBA HAS SLEPT FOR MOST OF THE DAY, THE PT WAS REPOSITIONED T/O THE DAY, WOUND DRESSINGS CHANGED ON THE PTS BLE'S AND HER LEFT BUTTOCKS, CLEAN TECHNIQUE USED, THE PT TOLERATED WELL, PT APPEARS TO BE BREATHING EASILY AT REST, CALL LIGHT IN REACH WILL CONTINUE TO MONITOR AND ASSESS FOR CHANGES
[2019-02-23 04:38] LABS: BASOPHILS ABSOLUTE AUTO 0.03 K/mm3 (0.00-0.23); BASOPHILS PERCENT AUTO 0 % (0-2); EOSINOPHILS ABSOLUTE AUTO 0.07 K/mm3 (0.00-0.68); EOSINOPHILS PERCENT AUTO 0 % (0-6); Hematocrit 21.3 % (33.0-51.0); Hemoglobin 6.7 g/dL (11.5-16.0); IMMATURE GRAN ABSOLUTE AUTO 0.33 K/mm3 (0.00-0.10); IMMATURE GRAN PERCENT AUTO 2 % (0-1); LYMPHOCYTES ABSOLUTE AUTO 1.38 K/mm3 (0.84-5.20); LYMPHOCYTES PERCENT AUTO 8 % (21-46); MONOCYTES ABSOLUTE AUTO 1.06 K/mm3 (0.16-1.47); MONOCYTES PERCENT AUTO 6 % (4-13); Mean Corpuscular HGB 27.6 pg (26.0-34.0); Mean Corpuscular HGB Conc 31.5 g/dL (31.5-36.5); Mean Corpuscular Volume 88 fL (80-100); Mean Platelet Volume 9.9 fL (9.1-12.4); NEUTROPHILS ABSOLUTE AUTO 14.06 K/mm3 (1.96-9.15); NEUTROPHILS PERCENT AUTO 83 % (41-73); Platelet Count 300 K/mm3 (150-400); RDW Coefficient Variation 14.3 % (11.7-14.2); RDW Standard Deviation 45.6 fL (35.1-46.3); Red Blood Cell Count 2.43 M/mm3 (3.80-5.20); White Blood Cell Count 16.93 K/mm3 (4.00-11.30)
[2019-02-23 05:04] LABS: Anion Gap 7 mmol/L (6-16); Blood Urea Nitrogen 54 mg/dL (8-24); Bun/Creatinine Ratio 51.4 (12.0-20.0); CO2, Blood 24 mmol/L (21-32); Calcium, Blood 8.7 mg/dL (8.5-10.1); Chloride, Blood 116 mmol/L (98-108); Creatinine, Blood 1.05 mg/dL (0.40-1.00); Glomerular Filtration Rate 53 (60-); Glucose, Blood 166 mg/dL (70-99); Phosphorus, Blood 1.9 mg/dL (2.5-4.9); Sodium, Blood 147 mmol/L (136-145)
--- NOTE | 2019-02-23 06:37 | NUR ---
SHIFT SUMMARY PT IS AN 83 Y/O FEMALE, ADMITTED FOR PVD AND CHRONIC, NONHEALING WOUNDS ON HER LLE. SHE IS A&O X 2-3, THOUGH VERY LETHARGIC AT TIMES. PT DID WAKE ENOUGH TO TAKE HER EVENING MEDS, BUT WAS NOT ALERT ENOUGH TO TAKE HER AM MEDS. NO COMPLAINTS OF PAIN, NAUSEA OR SOB. VITAL SIGNS WERE STABLE. ON AM VITALS, PT'S HG WAS FOUND TO BE LOW AT 6.7. NO OTHER ACUTE CHANGES IN PT CONDITION NOTED. WILL CONTINUE TO MONITOR AND TREAT PER EMAR UNTIL HAND OFF TO DAY SHIFT RN.
--- NOTE | 2019-02-23 18:27 | NUR ---
PT A/OX3, WHEN AWAKE, THE PT WAS MORE ALERT AND AWAKE TODAY COMPARED TO YESTERDAY, THE PT RECIEVED A UNIT OF PRBC'S TODAY AND TOLERATED THE TRANSFUSION WELL THE PT APPEARS TO BE BREATHING EASILY ON O2 @ 2L/MIN, THE PT WAS REPOSITIONED T/O THE DAY, PT HAD DIARRHEA LAXATIVES WERE HELD, THE PT WORKED WOITH THE PHYSICAL THERAPIST TODAY IN THE BED, CALL LIGHT IN REACH, WILL CONTINUE TO MONITOR FOR CHANGES
[2019-02-24 04:48] LABS: BASOPHILS ABSOLUTE AUTO 0.07 K/mm3 (0.00-0.23); BASOPHILS PERCENT AUTO 1 % (0-2); EOSINOPHILS ABSOLUTE AUTO 0.19 K/mm3 (0.00-0.68); EOSINOPHILS PERCENT AUTO 2 % (0-6); Hematocrit 30.7 % (33.0-51.0); Hemoglobin 9.4 g/dL (11.5-16.0); IMMATURE GRAN ABSOLUTE AUTO 0.28 K/mm3 (0.00-0.10); IMMATURE GRAN PERCENT AUTO 2 % (0-1); LYMPHOCYTES PERCENT AUTO 10 % (21-46); MONOCYTES ABSOLUTE AUTO 0.96 K/mm3 (0.16-1.47); MONOCYTES PERCENT AUTO 7 % (4-13); Mean Corpuscular HGB 28.2 pg (26.0-34.0); Mean Corpuscular HGB Conc 30.6 g/dL (31.5-36.5); Mean Platelet Volume 9.8 fL (9.1-12.4); NEUTROPHILS ABSOLUTE AUTO 10.19 K/mm3 (1.96-9.15); NEUTROPHILS PERCENT AUTO 78 % (41-73); Platelet Count 314 K/mm3 (150-400); RDW Coefficient Variation 14.5 % (11.7-14.2); RDW Standard Deviation 49.1 fL (35.1-46.3); Red Blood Cell Count 3.33 M/mm3 (3.80-5.20); White Blood Cell Count 12.99 K/mm3 (4.00-11.30)
[2019-02-24 04:53] LABS: Mean Corpuscular Volume 92 fL (80-100)
--- NOTE | 2019-02-24 05:05 | NUR ---
SUMMARY: PT CONT'S VERY DROWSY BUT WA WAS A/OX3 AND WAS ABLE TO SPECIFY NEEDS IN SHORT PHRASES. PILLS WERE TOLERATED CRUSHED IN APPLESAUCE AND PT RECIEVED TYLENOL PRN X1 FOR TOLERABLE CONTROL OF "ALL OVER" PAIN. ASPIRATION PREC'S MAINTAINED. BOWEL MEDS WERE HELD D/T LOOSE/UNFORMED STOOLS. ATTENDS CHANGED PRN FOR BM INCONTINENCE AND CHRONIC INDWELLING GR REMAINS PATENT/DRAINING. PT IS ON 2L O2 PER HOME W/RESPS E/U AND SPO2 WNL. OCCASIONAL MOIST [employer] PROTECTION SALES COUGH OBSERVED. KURLEX DX'S TO BLE'S REMAIN C/D/I W/HEELS FLOATED AND TURN SCHEDULE MAINTAINED. PRESSURE DX REMAINS INTACT TO L.GROIN FAILED CATH SITE AND BRUISING PERSISTS, NO CONT'D BLEEDING OCCURED. IVF INFUSING AND ABX RECIEVED. NO ACUTE CHANGES, VSS/AFEBRILE. WCTM AND REPORT TO DAY RN.
[2019-02-24 05:21] LABS: Anion Gap 9 mmol/L (6-16); Blood Urea Nitrogen 46 mg/dL (8-24); Bun/Creatinine Ratio 47.6 (12.0-20.0); CO2, Blood 22 mmol/L (21-32); Calcium, Blood 8.7 mg/dL (8.5-10.1); Chloride, Blood 112 mmol/L (98-108); Creatinine, Blood 0.97 mg/dL (0.40-1.00); Glomerular Filtration Rate 59 (60-); Glucose, Blood 162 mg/dL (70-99); Magnesium, Blood 1.8 mg/dL (1.6-2.4); Potassium, Blood 3.6 mmol/L (3.5-5.5); Sodium, Blood 143 mmol/L (136-145)
--- NOTE | 2019-02-24 15:55 | NUR ---
SHIFT SUMMARY NO ACUTE CHANGES TO PRESENT THIS SHIFT. PT WOKE FOR AM VS; A&O, PLEASANT AND CO-OP. PER SHIFT REPORT, PT COULD BE LETHARGIC INTERMITTENTLY. IVF'S INFUSING PER EMAR. CHRONIC GR, PATENT AND DRAINING CL YELLOW. ADMITTED FOR PVD, WITH WOUNDS TO BL CALVES AND L HEEL. HEEL PROTECTOR IN PLACE WITH BLE'S ELEVATED ON PILLOW. PT TURNED Q2 PER PROTOCOL. L SIDE WEAKNESS D/T HX OF CVA; VERY MINIMAL ASSIST WITH TURNING. LUE SLIGHTLY SWOLLEN; ELEVATED ON PILLOW. MORBIDLY OBESE. INCONTACT ISOLATION FOR HX MRSA. PER REPORT, STENT PLACED TO L LEG WITH GROIN SITE DRSG IN PLACE. C/O PAIN "ALL OVER". MEDICATED PER EMAR. DR APONTE IN TO SEE PT THIS AM. POSSIBLE D/C TO HOME TOMORROW. PT REPORTED THAT HER SON HAD EVERTHING SET UP FOR HER CARE AT HOME. DR APONTE OR LAUNDRY OPERATOR FINISHING TO TALK WITH SON TO VERIFY. BED BATH GIVEN TODAY. PT REMAINS INCONTINENT OF LOOSE STOOLS. BOWEL CARE HELD. CALL LT IN REACH.
--- NOTE | 2019-02-25 04:07 | NUR ---
SHIFT SUMMARY: 83 Y/O OBESE FEMALE RESTED COMFORTABLY ALL SHIFT, PT C/O BILATERAL LOWER FEET PAIN RATED 6/10 WITH NORCO 10/325MG X 1 PILL GIVEN WITH RELIEF FELT, ALL DRESSING TO LOWER LEGS DRY AND INTACT, GR DRAINING CLEAR YELLOW FLUID ADEQUATE AMOUNT, LEFT SIDED FLACCID AND PATIENT REQUIRES ASSISTANCE WITH ALL ADLS AND IADLS, ABLE TO TAKE ALL MEDICATIONS 2-3 PILLS AT A TIME, ALERT AND ORIENTED X 4, BED ALARM APPLIED, BED LOW POSITION, CALL LIGHT AT SIDE.
--- NOTE | 2019-02-25 19:23 | NUR ---
SHIFT SUMMARY PT RESTING QUIETLY, SLEEPING DURING SHIFT REPORT THIS AM. DROWSY WHEN FIRST WAKING UP TODAY, BUT APPROPRIATE WHEN FULLY AWAKE. VSS SEE CHART. IVF'S INFUSING PER ORDERS. BLE'S ELEVATED ON PILLOWS WITH HEEL PROTECTOR ON L FOOT. DR APONTE IN TO SEE PT THIS AM. DRSG'S TO BLE'S REMOVED FOR ASSESSMENT OF LEG WOUNDS. D/C PICTURES TAKEN AND NEW DRG'S PLACED AFTER ASSESSMENT COMPLETE. D/C HELD TODAY D/T SON BEING UNABLE TO OBTAIN CAREGIVERS AT HOME UNTIL TOMORROW AM. IV TO RFA LEAKING; D/C'D WNL'S. NO IV ACCESS NEEDED. ABX CHANGED TO PO. PT MEDICATED X1 FOR C/O PAIN TO LEGS AFTER DRSG CHANGES. REPORTED IT EFFECTIVE. NO FURTHER C/O. ABLE TO FEED HERSELF WHEN SET UP. MEDS WHOLE WITH H2O. CALL LT IN REACH. REPORT GIVEN TO ONCOMING RN.
--- NOTE | 2019-02-26 05:54 | NUR ---
SHIFT SUMMARY PT BEEN VERY SLEEPY LETHARGIC. C/O PAIN IN LEGS X1 AND MEDICATD PER EMAR. Q2HR TURNS. GR DRAINING. NEW MEPILEX COCCYX FOAM APPLIED TO COCCYX. 2L O2 NC. SHE WAS ABLE TO SLEEP T/O NIGHT. CALL LIGHT IN REACH.
--- NOTE | 2019-02-26 17:58 | NUR ---
PT A/O TO PERSON AND PLACE. PT HAS GOOD APPITITE AND DRINKING FLUIDS. PT HAS BEEN DROWSY AND SLEPT FREQUENTLY THROUGHOUT THE DAY. SHE IS AWAITING PLACEMENT IN A NURSING HOME CARE FACILITY. PT HAS A GR IN PLACE AND IS PATIENT AND DRAINING. PT HAS BANDAGES TO THE LOWER EXTREMITIES WHICH ARE C/D/I.
--- NOTE | 2019-02-27 06:07 | NUR ---
SHIFT SUMMARY PT IS MORE A&O TONIGHT, ABLE TO CORRECTLY STATE PLACE, DATE, FOLLOWING DIRECTIONS, EVENTS. SLOW TO RESPOND AND PROCESS INFO, BUT IS ORIENTED. ON 2L VIA NC, BASELINE. LS DIM. GR PATENT AND DRAINING BELOW WAIST OFF FLOOR. PT HAD LARGE BM TONIGHT. MEPILEX DRESSING ON BUTTOCKS CHANGED, REDNESS AND MINOR BREAKDOWN NOTED. Q2H TURNS COMPLETE. BLE DRESSINGS C/D/I. PILLS WHOLE c WATER. WILL CONT TO MONITOR AND PROVIDE CARE UNTIL PRESUMED BY ONCOMING RN.
--- NOTE | 2019-02-27 11:58 | NUR ---
PATIENT DECLINED LUNCH THIS SHIFT. SHE STATED SHE WAS TIRED AND WAS SICK OF EATING CARROTS. SHE ALSO SAID SHE WAS NOT VERY HUNGRY. I LET HER KNOW WHAT WAS FOR LUNCH TODAY AND OFFERED ALTERNATIVE AND SHE STILL DECLINED.
[2019-02-27] MEDS ORDERED: MIRALAX17 GM PO (14:49)
[2019-02-27] MEDS ORDERED: HYDR1TAB94 PO (14:50)
[2019-02-27] MEDS ORDERED: CEPH500 PO (14:51)
[2019-02-27] MEDS ORDERED: GABA300T24 PO (14:52)
[2019-02-27] MEDS ORDERED: INSULANPEN SC (14:53)
[2019-02-27] MEDS ORDERED: INSR10I (14:54)
[2019-02-27] MEDS ORDERED: ALBU3IS INH (14:55)
[2019-02-27] MEDS ORDERED: FLUT1DIS5 INH (14:56)
[2019-02-27] MEDS ORDERED: Ipratropium Bro30 ML (14:57)
--- NOTE | 2019-02-27 17:00 | NUR ---
PT WAS DCD TO [facility] VIA MEDICAL TRANSPORT WITH [employer]. DC PACKET WAS SENT WITH PT ALONG WITH PERSONAL BELONGINGS. AFTER MULTIPLE ATTEMPTS TO TRY TO CALL REPORT TO THE FACILITY, LYNDA SYLVESTER CALLED BACK AND RECEIVED REPORT ON PT AND WAS AWAITING HER ARRIVAL.
== END 2019-02-27 17:01 | DRG 252 ==
LOC: MHTC 06:27 → ICUE 11:15 → MHTC 02-19 18:16 → MEDS 02-19 18:17 → ENPENDDIS 02-27 11:50 → MEDS 02-27 17:01
PROVIDERS: Internal Medicine; Internal Medicine Gastroenterology; Radiology Diagnostic Radiology; ADMIT Family Medicine
PROC: 047L3Z1 Dilation of Left Femoral Artery using Drug-Coated Balloon, Percutaneous Approach (ICD-10-PCS; principal; 2019-02-19)
PROC: 047N3Z1 Dilation of Left Popliteal Artery using Drug-Coated Balloon, Percutaneous Approach (ICD-10-PCS; 2019-02-19)
PROC: B41D1ZZ Fluoroscopy of Aorta and Bilateral Lower Extremity Arteries using Low Osmolar Contrast (ICD-10-PCS; 2019-02-19)
PROC: 30233N1 Transfusion of Nonautologous Red Blood Cells into Peripheral Vein, Percutaneous Approach (ICD-10-PCS; 2019-02-23)
DX: E11.51 Type 2 diabetes mellitus with diabetic peripheral angiopathy without gangrene (principal); L89.623 Pressure ulcer of left heel, stage 3; L89.893 Pressure ulcer of other site, stage 3; J96.21 Acute and chronic respiratory failure with hypoxia; I69.354 Hemiplegia and hemiparesis following cerebral infarction affecting left non-dominant side; K50.90 Crohn's disease, unspecified, without complications; N17.9 Acute kidney failure, unspecified; E87.0 Hyperosmolality and hypernatremia; J44.1 Chronic obstructive pulmonary disease with (acute) exacerbation; L03.115 Cellulitis of right lower limb; L03.116 Cellulitis of left lower limb; I25.10 Atherosclerotic heart disease of native coronary artery without angina pectoris; N18.2 Chronic kidney disease, stage 2 (mild); E78.5 Hyperlipidemia, unspecified; M81.0 Age-related osteoporosis without current pathological fracture; N31.9 Neuromuscular dysfunction of bladder, unspecified; G89.4 Chronic pain syndrome; Z79.4 Long term (current) use of insulin; E66.9 Obesity, unspecified; E11.22 Type 2 diabetes mellitus with diabetic chronic kidney disease; D63.1 Anemia in chronic kidney disease; E78.00 Pure hypercholesterolemia, unspecified; F32.9 Major depressive disorder, single episode, unspecified; I12.9 Hypertensive chronic kidney disease with stage 1 through stage 4 chronic kidney disease, or unspecified chronic kidney disease; B96.5 Pseudomonas (aeruginosa) (mallei) (pseudomallei) as the cause of diseases classified elsewhere; Z74.01 Bed confinement status; R82.71 Bacteriuria; Z68.30 Body mass index [BMI] 30.0-30.9, adult
CPT/HCPCS: 36140; 36415; 36430; 37224; 51702; 71045; 75716; 75774; 76937; 80069; 81001; 82947; 83036; 83605; 83735; 83880; 84145; 85025; 85347; 86850; 86900; 86901; 86923; 87040; 87077; 87086; 87186; 94640; 94760; 97110; 97163; 97530; 99152; 99153; A9270; C1750; C1760; C1769; C1887; C1894; C2623; G0378; J0692; J0713; J0881; J1644; J1650; J1815; J2250; J3010; J3370; J3480; J7030; J7040; J7050; P9016; Q9967

== ENCOUNTER 2019-03-28 00:53 | Day surgery (SDC) | payer OTHER ==
[~2019-03-28 00:53] MED LIST changes: +GABA300T24 PO; +INSR10I
== END 2019-03-28 23:23 | disposition home or self-care (01) ==
LOC: WOUND
DX: E11.621 Type 2 diabetes mellitus with foot ulcer (principal); E11.622 Type 2 diabetes mellitus with other skin ulcer; L97.526 Non-pressure chronic ulcer of other part of left foot with bone involvement without evidence of necrosis; L97.815 Non-pressure chronic ulcer of other part of right lower leg with muscle involvement without evidence of necrosis; L97.822 Non-pressure chronic ulcer of other part of left lower leg with fat layer exposed; E11.51 Type 2 diabetes mellitus with diabetic peripheral angiopathy without gangrene; I73.9 Peripheral vascular disease, unspecified; I13.2 Hypertensive heart and chronic kidney disease with heart failure and with stage 5 chronic kidney disease, or end stage renal disease; E11.22 Type 2 diabetes mellitus with diabetic chronic kidney disease; N18.6 End stage renal disease; I50.9 Heart failure, unspecified; Z88.2 Allergy status to sulfonamides; Z88.0 Allergy status to penicillin; Z88.8 Allergy status to other drugs, medicaments and biological substances
CPT/HCPCS: 87071; 87075; 87077; 87147; 87186; 87205; G0463

== ENCOUNTER 2019-04-10 13:06 | Day surgery (SDC) | payer OTHER | END 2019-04-10 23:37 | disposition home or self-care (01) | LOC: WOUND | DX: E11.621 Type 2 diabetes mellitus with foot ulcer (principal); E11.622 Type 2 diabetes mellitus with other skin ulcer; L97.526 Non-pressure chronic ulcer of other part of left foot with bone involvement without evidence of necrosis; L97.812 Non-pressure chronic ulcer of other part of right lower leg with fat layer exposed; L97.822 Non-pressure chronic ulcer of other part of left lower leg with fat layer exposed; E11.51 Type 2 diabetes mellitus with diabetic peripheral angiopathy without gangrene; I73.9 Peripheral vascular disease, unspecified; I12.0 Hypertensive chronic kidney disease with stage 5 chronic kidney disease or end stage renal disease; E11.22 Type 2 diabetes mellitus with diabetic chronic kidney disease; N18.6 End stage renal disease ==

== ENCOUNTER 2019-05-05 08:03 | Inpatient (IN) | payer OTHER ==
[~2019-05-05] VITALS: Ht 160 cm; Wt 63.5 kg
[~2019-05-05 08:03] MED LIST changes: +ALBU3IS NEB; -GABA300T24 PO; +Hair, Skin & N1 EACH PO; -INSR10I; +INSR10I SC
[2019-05-05 09:10] LABS: BASOPHILS ABSOLUTE AUTO 0.05 K/mm3 (0.00-0.23); BASOPHILS PERCENT AUTO 0 % (0-2); EOSINOPHILS ABSOLUTE AUTO 0.02 K/mm3 (0.00-0.68); EOSINOPHILS PERCENT AUTO 0 % (0-6); Hematocrit 24.1 % (33.0-51.0); Hemoglobin 7.4 g/dL (11.5-16.0); IMMATURE GRAN ABSOLUTE AUTO 0.21 K/mm3 (0.00-0.10); IMMATURE GRAN PERCENT AUTO 1 % (0-1); LYMPHOCYTES ABSOLUTE AUTO 1.92 K/mm3 (0.84-5.20); LYMPHOCYTES PERCENT AUTO 7 % (21-46); MONOCYTES ABSOLUTE AUTO 1.54 K/mm3 (0.16-1.47); MONOCYTES PERCENT AUTO 6 % (4-13); Mean Corpuscular HGB 26.6 pg (26.0-34.0); Mean Corpuscular HGB Conc 30.7 g/dL (31.5-36.5); Mean Corpuscular Volume 87 fL (80-100); Mean Platelet Volume 9.8 fL (9.1-12.4); NEUTROPHILS ABSOLUTE AUTO 23.18 K/mm3 (1.96-9.15); NEUTROPHILS PERCENT AUTO 86 % (41-73); Platelet Count 419 K/mm3 (150-400); RDW Coefficient Variation 15.9 % (11.7-14.2); Red Blood Cell Count 2.78 M/mm3 (3.80-5.20); White Blood Cell Count 26.92 K/mm3 (4.00-11.30)
[2019-05-05 09:26] LABS: International Normalized Ratio 1.02; Prothrombin Time Results 10.8 Sec (9.7-11.5)
[2019-05-05 09:28] LABS: Albumin, Blood 2.2 g/dL (3.4-5.0); Albumin/Globulin Ratio 0.5 (0.8-1.8); Bilirubin, Total 0.6 mg/dL (0.1-1.0); Bun/Creatinine Ratio 33.6 (12.0-20.0); Calcium, Blood 9.5 mg/dL (8.5-10.1); Creatinine, Blood 0.98 mg/dL (0.40-1.00); Globulin, Blood 4.7 g/dL (2.2-4.0); Potassium, Blood 3.8 mmol/L (3.5-5.5); Total Protein, Blood 6.9 g/dL (6.4-8.2)
[2019-05-05] MEDS ORDERED: Phillips'400 MG/5 M PO (09:43)
[2019-05-05] MEDS ORDERED: CALC.25 PO (09:51)
[2019-05-05] MEDS ORDERED: Macrodantin50 MG PO (09:53)
[2019-05-05 10:31] LABS: Source, Urine Catheter
[2019-05-05 10:41] LABS: Bilirubin, Urine Neg (Neg); Blood, Urine 5+ (Neg); Glucose Qualitative, Urine Neg (Neg); Ketones, Urine Neg (Neg); Leukocyte Esterase, Urine 2+ (Neg); Nitrite, Urine Neg (Neg); Protein, Urine 3+ (Neg); Urobilinogen, Urine 1+ (Normal)
[2019-05-05 11:11] LABS: Appearance, Urine Hazy (Clear); Color, Urine Yellow (P-Yellow)
[2019-05-05 11:12] LABS: Red Blood Cells, Urine TNTC /hpf (0-2)
[2019-05-05 11:16] LABS: Squamous Epithelial Cells Few /hpf (Few)
[2019-05-05 11:17] LABS: Amorphous Light (0-Heavy); Bacteria Mod /hpf; Renal Epithelial Few /hpf (0-Rare)
[2019-05-05] MEDS ORDERED: Feverall650 MG PR (12:25)
[2019-05-05] MEDS ORDERED: ACET325 PO (12:56)
[2019-05-05] MEDS ORDERED: GABA300T24 PO (13:01)
[2019-05-05] MEDS ORDERED: BISA10S PR (13:09)
[2019-05-05] MEDS ORDERED: Fleet Enema132 ML PR (13:09)
[2019-05-05 15:27] LABS: Influenza A Negative (NEGATIVE); Influenza B Negative (NEGATIVE)
--- NOTE | 2019-05-05 16:16 | NUR ---
PT ADMITTED/SHIFT SUMMARY PT ADMITTED AT 1345. PT VITALS IMPROVED FROM ER. PT TEMP NOW STABILIZED. OTHER VITALS STABLE. PT CURRENTLY RECIEVING HER FIRST UNIT OF BLOOD. FLUIDS HELD DURING TRANSFUSIONS PER DR. APONTE. PT LUNGS CRACKLY. OT DOSE OF LASIX IV ORDERED FOR BETWEEN TRANSFUSIONS. PT TOLERATING CURRENT TRANSFUSION WELL. PT WOUNDS PHOTOGRAPHED & REDRESSED. PAIN MEDS GIVEN FOR BLE ONCE THIS SHIFT. WOUNDS SHOWN TO DR. APONTE. WILL CONTINUE TO MONITOR PT UNTIL TURNOVER IS COMPLETE.
[2019-05-06 05:10] LABS: BASOPHILS ABSOLUTE AUTO 0.05 K/mm3 (0.00-0.23); BASOPHILS PERCENT AUTO 0 % (0-2); EOSINOPHILS ABSOLUTE AUTO 0.12 K/mm3 (0.00-0.68); EOSINOPHILS PERCENT AUTO 1 % (0-6); Hematocrit 30.7 % (33.0-51.0); Hemoglobin 9.5 g/dL (11.5-16.0); IMMATURE GRAN ABSOLUTE AUTO 0.09 K/mm3 (0.00-0.10); IMMATURE GRAN PERCENT AUTO 1 % (0-1); LYMPHOCYTES ABSOLUTE AUTO 0.94 K/mm3 (0.84-5.20); LYMPHOCYTES PERCENT AUTO 6 % (21-46); MONOCYTES ABSOLUTE AUTO 0.93 K/mm3 (0.16-1.47); MONOCYTES PERCENT AUTO 6 % (4-13); Mean Corpuscular HGB 26.6 pg (26.0-34.0); Mean Corpuscular HGB Conc 30.9 g/dL (31.5-36.5); Mean Corpuscular Volume 86 fL (80-100); Mean Platelet Volume 9.4 fL (9.1-12.4); NEUTROPHILS PERCENT AUTO 87 % (41-73); Platelet Count 312 K/mm3 (150-400); RDW Coefficient Variation 18.7 % (11.7-14.2); RDW Standard Deviation 59.3 fL (35.1-46.3); Red Blood Cell Count 3.57 M/mm3 (3.80-5.20); White Blood Cell Count 16.23 K/mm3 (4.00-11.30)
[2019-05-06 05:40] LABS: Alanine Aminotransfer (ALT/SGP 15 U/L (12-78); Albumin, Blood 1.9 g/dL (3.4-5.0); Albumin/Globulin Ratio 0.4 (0.8-1.8); Alk Phos 94 U/L (50-136); Anion Gap 8 mmol/L (6-16); Aspartate Aminotrans (AST/SGOT 12 U/L (12-37); Bilirubin, Total 1.3 mg/dL (0.1-1.0); Blood Urea Nitrogen 25 mg/dL (8-24); Bun/Creatinine Ratio 28.2 (12.0-20.0); CO2, Blood 25 mmol/L (21-32); Calcium, Blood 8.6 mg/dL (8.5-10.1); Chloride, Blood 107 mmol/L (98-108); Creatinine, Blood 0.89 mg/dL (0.40-1.00); Globulin, Blood 4.3 g/dL (2.2-4.0); Glomerular Filtration Rate >60 (60-); Glucose, Blood 171 mg/dL (70-99); Potassium, Blood 3.3 mmol/L (3.5-5.5); Sodium, Blood 140 mmol/L (136-145); Total Protein, Blood 6.2 g/dL (6.4-8.2)
--- NOTE | 2019-05-06 06:00 | NUR ---
SHIFT SUMMARY AOX4. FINISHED 2ND UNIT OF BLOOD LAST NIGHT, W/O ANY REACTIONS. VSS. DENIES N/V OR DYSPNEA. ON 2L O2 VIA NC, SPO2 >90%, E/U RESPIRAIONS, CRACKLES HEARD T/O LUNGS. AWAKE ON/OFF T/O NIGHT, R/T PAIN IN LOWER BACK & BLE. MEDICATED 1X W/NORCO PER ORDERS & STATED NO RELIEF W/PAIN STAYING @8/10. CALLED AKASH Casas & SHE ORDERED 1X DOSE OF 0.5 MG DILAUDID, WHEN REASSESSED PT REPORTED STILL HAVING 7/10 PAIN, YET FELL ASLEEP SHORTLY AFTER. REPOSITIONED & FLOATED HIP/HEELS Q2H, ALSO ADDED BED CRADLE SINCE PT WAS REPORTING FOOT PAIN. DRESSING ON COCCYX WOUND WAS CHANGED & PICS TAKEN. PT HAD 2 SOFT BROWN BM THIS SHIFT. GR IS PATENT & DRAINING CLEAR YELLOW URINE. CALL LIGHT IN REACH & I WILL MONITOR UNTIL DAY SHIFT ASSUMES CARE.
--- NOTE | 2019-05-06 14:59 | NUR ---
WIEGHT LOSS PT DAUGHTER REPORTS 50-60 LB WEIGHT LOSS IN THE LAST YEAR.
--- NOTE | 2019-05-06 15:23 | NUR ---
DNR BAND PLACED TO R WRIST.
--- NOTE | 2019-05-06 17:25 | NUR ---
Spiritual Care inital note: Mattie was weeping softly when I entered room. She said her leg was causing enormous pain. RN notified and immediately responded with medications. Once meds given, Mattie began to calm. She is confused today, but conversant. She tells me her stroke "changed everything" and its been difficult to adjust to requiring so much help. She lives alone with care-givers. I held her hand as we spoke and I moved conversation to more positive topics. This proved to be a good distraction as Mattie became more and more calm and comfortable. Prayer for healing provided. I will remain available.
--- NOTE | 2019-05-06 18:15 | NUR ---
SHIFT SUMMARY PT CHANGED TO DNR STATUS. PURPLE WRISTBAND IN PLACE. PT MEDICATED FOR PAIN MULTIPLE TIMES THIS SHFIT. SEE EMAR. PT TEARFUL DURING BRIEF CHANGES DUE TO RAWNESS OF THE SKIN ON HER SACRUM. FOAM DRESSING ON SACRUM. BARRIER CREAM APPLIED TO SURROUNDING AREA. NYSTATIN APPLIED TO FOLDS. PT CURRENTLY UP IN BED EATING DINNER. PT TOLERATING FINGER FOODS WELL. LOW APPETITE HOWEVER. NO OTHER CHANGES IN ASSESSMENT AT THIS TIME. VSS. WILL CONTINUE TO MONITOR UNTIL TURNOVER IS COMPLETE.
--- NOTE | 2019-05-07 04:08 | NUR ---
SHIFT SUMMARY AOX4. LS COARSE, DENIES SOB, ON 2L O2 WHICH IS BASELINE. NO C/O NAUSEA DURING INITIAL ASSESSMENT BUT PT WAS DRY HEAVING AND RECEIVED ZOFRAN @ 0200. PAIN RATED 8/10 IN FEET, ASKED IF PT NEEDED ANYTHING AND SHE SAID NO, NO PRNS GIVEN FOR PAIN. NO CHANGES TO DRESSINGS ON FEET. NYSTATIN APPLIED TO GROIN AREA, UNDER BREASTS AND ARMS. MEPILEX TO BOTTOM IS C/D/I. STILL IN CONTACT PRECAUTIONS FOR MRSA. R WRIST AND L AC ARE SL. CHRONIC GR DRAINING WELL. HS BLOOD GLUCOSE WAS 95. L SIDE REMAINS WEAKER D/T HX OF CVA. MEDS IN APPLESAUCE. REPOSITIONING PAINFUL. VSS ON 2L O2. PLAN TO DC BACK TO [facility], UNSURE OF WHEN.
[2019-05-07 05:07] LABS: BASOPHILS ABSOLUTE AUTO 0.03 K/mm3 (0.00-0.23); BASOPHILS PERCENT AUTO 0 % (0-2); EOSINOPHILS ABSOLUTE AUTO 0.18 K/mm3 (0.00-0.68); EOSINOPHILS PERCENT AUTO 2 % (0-6); Hematocrit 29.3 % (33.0-51.0); Hemoglobin 9.2 g/dL (11.5-16.0); IMMATURE GRAN ABSOLUTE AUTO 0.07 K/mm3 (0.00-0.10); IMMATURE GRAN PERCENT AUTO 1 % (0-1); LYMPHOCYTES ABSOLUTE AUTO 1.22 K/mm3 (0.84-5.20); LYMPHOCYTES PERCENT AUTO 11 % (21-46); MONOCYTES ABSOLUTE AUTO 0.76 K/mm3 (0.16-1.47); MONOCYTES PERCENT AUTO 7 % (4-13); Mean Corpuscular HGB 26.6 pg (26.0-34.0); Mean Corpuscular HGB Conc 31.4 g/dL (31.5-36.5); Mean Corpuscular Volume 85 fL (80-100); Mean Platelet Volume 9.5 fL (9.1-12.4); NEUTROPHILS ABSOLUTE AUTO 9.11 K/mm3 (1.96-9.15); NEUTROPHILS PERCENT AUTO 80 % (41-73); Platelet Count 319 K/mm3 (150-400); RDW Coefficient Variation 18.9 % (11.7-14.2); RDW Standard Deviation 58.9 fL (35.1-46.3); Red Blood Cell Count 3.46 M/mm3 (3.80-5.20); White Blood Cell Count 11.37 K/mm3 (4.00-11.30)
[2019-05-07 05:28] LABS: Anion Gap 9 mmol/L (6-16); Blood Urea Nitrogen 13 mg/dL (8-24); Bun/Creatinine Ratio 17.7 (12.0-20.0); CO2, Blood 22 mmol/L (21-32); Calcium, Blood 8.5 mg/dL (8.5-10.1); Chloride, Blood 108 mmol/L (98-108); Creatinine, Blood 0.74 mg/dL (0.40-1.00); Glomerular Filtration Rate >60 (60-); Glucose, Blood 177 mg/dL (70-99); Potassium, Blood 3.6 mmol/L (3.5-5.5); Sodium, Blood 139 mmol/L (136-145)
[2019-05-07 13:09] LABS: Vancomycin, Trough 8.8 ug/mL (5.0-10.0)
--- NOTE | 2019-05-07 17:45 | NUR ---
PATIENT IS ALERT AND ORIENTED. SHE IS COOPERATIVE WITH CARE. SHE HAD A NEW IV PLACED TODAY. SHE IS RECIEVING IV ANTIBIOTICS. COMPLAINTS PF PAIN ON HER BLE. DRESSINGS ON HER BLE AND COCCYX WERE CHANGED TODAY. SHE HAD A SMALL INCONTINENT BM THIS AFTERNOON. ATTENDS IN PLACE. WILL CONTINUE TO MONITOR.
[2019-05-08 04:54] LABS: BASOPHILS ABSOLUTE AUTO 0.04 K/mm3 (0.00-0.23); BASOPHILS PERCENT AUTO 1 % (0-2); EOSINOPHILS ABSOLUTE AUTO 0.32 K/mm3 (0.00-0.68); EOSINOPHILS PERCENT AUTO 4 % (0-6); Hematocrit 29.8 % (33.0-51.0); Hemoglobin 9.2 g/dL (11.5-16.0); IMMATURE GRAN ABSOLUTE AUTO 0.04 K/mm3 (0.00-0.10); IMMATURE GRAN PERCENT AUTO 1 % (0-1); LYMPHOCYTES PERCENT AUTO 18 % (21-46); MONOCYTES ABSOLUTE AUTO 0.66 K/mm3 (0.16-1.47); MONOCYTES PERCENT AUTO 8 % (4-13); Mean Corpuscular HGB 26.5 pg (26.0-34.0); Mean Corpuscular HGB Conc 30.9 g/dL (31.5-36.5); Mean Corpuscular Volume 86 fL (80-100); Mean Platelet Volume 9.5 fL (9.1-12.4); NEUTROPHILS ABSOLUTE AUTO 5.88 K/mm3 (1.96-9.15); NEUTROPHILS PERCENT AUTO 70 % (41-73); Platelet Count 319 K/mm3 (150-400); RDW Coefficient Variation 18.9 % (11.7-14.2); RDW Standard Deviation 59.5 fL (35.1-46.3); Red Blood Cell Count 3.47 M/mm3 (3.80-5.20); White Blood Cell Count 8.44 K/mm3 (4.00-11.30)
[2019-05-08 05:12] LABS: Alanine Aminotransfer (ALT/SGP 12 U/L (12-78); Albumin/Globulin Ratio 0.5 (0.8-1.8); Alk Phos 95 U/L (50-136); Anion Gap 6 mmol/L (6-16); Aspartate Aminotrans (AST/SGOT 13 U/L (12-37); Bilirubin, Total 0.4 mg/dL (0.1-1.0); Blood Urea Nitrogen 10 mg/dL (8-24); Bun/Creatinine Ratio 14.2 (12.0-20.0); CO2, Blood 25 mmol/L (21-32); Calcium, Blood 8.8 mg/dL (8.5-10.1); Chloride, Blood 108 mmol/L (98-108); Creatinine, Blood 0.71 mg/dL (0.40-1.00); Globulin, Blood 4.1 g/dL (2.2-4.0); Glomerular Filtration Rate >60 (60-); Glucose, Blood 108 mg/dL (70-99); Phosphorus, Blood 2.4 mg/dL (2.5-4.9); Potassium, Blood 3.9 mmol/L (3.5-5.5); Sodium, Blood 139 mmol/L (136-145); Total Protein, Blood 6.1 g/dL (6.4-8.2)
[2019-05-08] MEDS ORDERED: CEFU250T47 PO (11:02)
[2019-05-08] MEDS ORDERED: INSULIN LI100 UNIT/2 SC (11:04)
[2019-05-08] MEDS ORDERED: LEVFLO500 PO (11:04)
[2019-05-08] MEDS ORDERED: ONDA4ODT PO (11:05)
[2019-05-08 15:07] LABS: A/G RATIO 0.6 (0.7-1.7); ALPHA-1-GLOBULIN 0.4 g/dL (0.0-0.4); ALPHA-2-GLOBULIN 0.8 g/dL (0.4-1.0); BETA GLOBULIN 0.9 g/dL (0.7-1.3); GAMMA GLOBULIN 1.2 g/dL (0.4-1.8); GLOBULIN, TOTAL 3.3 g/dL (2.2-3.9); M-SPIKE 0.3 g/dL (Not Observed); PROTEIN, TOTAL, SERUM 5.3 g/dL (6.0-8.5)
--- NOTE | 2019-05-08 17:15 | NUR ---
REPORT CALLED TO [facility]THA AT [facility]. PT TRANSFERRED VIA GURNEY TO FACILITY AT 1700. DID REPORT PAIN EARLIER AND NORCO GIVEN. DRESSINGS CHANGED APPROX 1100 WITH PHOTOS TAKEN BUT 2 PHOTOS WAS UNABLE TO BE PRINTED. DRANK FLUIDS WITH NO PROBLEM.
== END 2019-05-08 17:10 | DRG 193 ==
LOC: ER 08:03 → MEDS 13:29 → ENPENDDIS 05-08 12:42 → MEDS 05-08 17:10
PROVIDERS: Physician Assistant; ADMIT Family Medicine
DX: J18.9 Pneumonia, unspecified organism (principal); G93.41 Metabolic encephalopathy; K50.90 Crohn's disease, unspecified, without complications; J44.1 Chronic obstructive pulmonary disease with (acute) exacerbation; J44.0 Chronic obstructive pulmonary disease with (acute) lower respiratory infection; E44.0 Moderate protein-calorie malnutrition; I69.354 Hemiplegia and hemiparesis following cerebral infarction affecting left non-dominant side; L97.318 Non-pressure chronic ulcer of right ankle with other specified severity; L97.818 Non-pressure chronic ulcer of other part of right lower leg with other specified severity; J96.11 Chronic respiratory failure with hypoxia; Z86.718 Personal history of other venous thrombosis and embolism; Z87.891 Personal history of nicotine dependence; Z79.4 Long term (current) use of insulin; I25.10 Atherosclerotic heart disease of native coronary artery without angina pectoris; N18.2 Chronic kidney disease, stage 2 (mild); M81.0 Age-related osteoporosis without current pathological fracture; K21.9 Gastro-esophageal reflux disease without esophagitis; D50.9 Iron deficiency anemia, unspecified; E11.649 Type 2 diabetes mellitus with hypoglycemia without coma; Z74.01 Bed confinement status; R62.7 Adult failure to thrive; Z68.24 Body mass index [BMI] 24.0-24.9, adult; Z66 Do not resuscitate; E11.51 Type 2 diabetes mellitus with diabetic peripheral angiopathy without gangrene; E11.22 Type 2 diabetes mellitus with diabetic chronic kidney disease; E86.9 Volume depletion, unspecified; E66.9 Obesity, unspecified; E11.69 Type 2 diabetes mellitus with other specified complication; R59.0 Localized enlarged lymph nodes; I12.9 Hypertensive chronic kidney disease with stage 1 through stage 4 chronic kidney disease, or unspecified chronic kidney disease
CPT/HCPCS: 36415; 51702; 71046; 71260; 80048; 80053; 80202; 81001; 82947; 83605; 84100; 84165; 85025; 85610; 85730; 86850; 86900; 86901; 86923; 87040; 87070; 87086; 87205; 87804; 92526; 92610; 93005; 93010; 93922; 96365; 96366; 96367; 99285-25; A9270-GY; C9113; J1170; J1815; J1940; J1956; J2185; J2405; J3370; J7030; J7040; P9016; Q9967

== ENCOUNTER → 2019-05-23 | Outpatient (CLI) | payer OTHER ==
[~2019-05-23] MED LIST changes: +CALC.25 PO; +FURO20 PO; +Feverall650 MG PR; +Fleet Enema132 ML PR; +Florastor250 MG PO; +GABA300T24 PO; +INSULIN LI100 UNIT/2 SC; +K-Phos Origina500 MG PO; +ONDA4ODT PO; +Phillips'400 MG/5 M PO
[2019-05-23 07:10] LABS: Source, Urine Clean Catch
[2019-05-23 07:16] LABS: Bilirubin, Urine Neg (Neg); Blood, Urine 5+ (Neg); Glucose Qualitative, Urine Neg (Neg); Ketones, Urine Neg (Neg); Leukocyte Esterase, Urine 3+ (Neg); Nitrite, Urine Neg (Neg); Protein, Urine 3+ (Neg); Urobilinogen, Urine NORM (Normal)
[2019-05-23 07:28] LABS: Appearance, Urine Hazy (Clear); Bacteria Mod /hpf; Color, Urine Yellow (P-Yellow); Red Blood Cells, Urine TNTC /hpf (0-2); Squamous Epithelial Cells Mod /hpf (Few); Transitional Epithelial Cells Mod /hpf (0-Rare); White Blood Cells, Urine TNTC /hpf (0-5)
== END | disposition home or self-care (01) ==
LOC: LAB UVN 07:08 → EDSTATUS 09:30
PROVIDERS: Internal Medicine
DX: N18.3 Chronic kidney disease, stage 3 (moderate) (principal)
CPT/HCPCS: 81015; 87086

== ENCOUNTER 2019-05-24 15:24 | Inpatient (IN) | payer OTHER ==
[~2019-05-24] VITALS: Ht 170.2 cm; Wt 66.6 kg
[~2019-05-24 15:24] MED LIST changes: -FURO20 PO; -Florastor250 MG PO; -K-Phos Origina500 MG PO
[2019-05-24 15:42] LABS: Source, Urine Catheter
[2019-05-24] MEDS ORDERED: K-Phos Origina500 MG PO (15:45)
[2019-05-24] MEDS ORDERED: FLUT1DIS5 INH (15:48)
[2019-05-24] MEDS ORDERED: JUVEN PACKET1 EACH PO (15:51)
[2019-05-24 15:55] LABS: BASOPHILS ABSOLUTE AUTO 0.07 K/mm3 (0.00-0.23); BASOPHILS PERCENT AUTO 0 % (0-2); EOSINOPHILS PERCENT AUTO 0 % (0-6); Hemoglobin 11.7 g/dL (11.5-16.0); IMMATURE GRAN ABSOLUTE AUTO 0.33 K/mm3 (0.00-0.10); IMMATURE GRAN PERCENT AUTO 1 % (0-1); LYMPHOCYTES ABSOLUTE AUTO 1.71 K/mm3 (0.84-5.20); LYMPHOCYTES PERCENT AUTO 6 % (21-46); MONOCYTES ABSOLUTE AUTO 1.03 K/mm3 (0.16-1.47); MONOCYTES PERCENT AUTO 3 % (4-13); Mean Corpuscular HGB 26.8 pg (26.0-34.0); Mean Corpuscular HGB Conc 30.8 g/dL (31.5-36.5); Mean Corpuscular Volume 87 fL (80-100); Mean Platelet Volume 10.5 fL (9.1-12.4); NEUTROPHILS PERCENT AUTO 90 % (41-73); Platelet Count 364 K/mm3 (150-400); RDW Coefficient Variation 18.4 % (11.7-14.2); RDW Standard Deviation 59.4 fL (35.1-46.3); Red Blood Cell Count 4.36 M/mm3 (3.80-5.20); White Blood Cell Count 31.34 K/mm3 (4.00-11.30)
[2019-05-24 15:58] LABS: PCO2 Arterial 41.3 mmHg (35-45); PO2 Arterial 65.9 mmHg (80-100); pH Blood Arterial 7.46 (7.35-7.45)
[2019-05-24 16:00] LABS: Bilirubin, Urine Neg (Neg); Blood, Urine 4+ (Neg); Glucose Qualitative, Urine 3+ (Neg); Ketones, Urine 2+ (Neg); Leukocyte Esterase, Urine 3+ (Neg); Nitrite, Urine Neg (Neg); Protein, Urine 3+ (Neg); Urobilinogen, Urine NORM (Normal); pH, Urine 6.5 (5.0-8.0)
[2019-05-24 16:06] LABS: Anion Gap 9 mmol/L (6-16); Blood Urea Nitrogen 46 mg/dL (8-24); Bun/Creatinine Ratio 45.5 (12.0-20.0); CO2, Blood 28 mmol/L (21-32); Calcium, Blood 10.5 mg/dL (8.5-10.1); Chloride, Blood 109 mmol/L (98-108); Creatinine, Blood 1.01 mg/dL (0.40-1.00); Glomerular Filtration Rate 56 (60-); Glucose, Blood 380 mg/dL (70-99); Potassium, Blood 3.6 mmol/L (3.5-5.5); Sodium, Blood 146 mmol/L (136-145); Troponin I <0.015 ng/mL (0.000-0.040)
[2019-05-24 16:11] LABS: Appearance, Urine Cloudy (Clear); Color, Urine Yellow (P-Yellow)
[2019-05-24 16:14] LABS: Bacteria Many /hpf; Red Blood Cells, Urine Rare /hpf (0-2); Squamous Epithelial Cells Few /hpf (Few); White Blood Cells, Urine TNTC /hpf (0-5)
[2019-05-24 16:16] LABS: Calcium Oxalate Crystals Rare /hpf; Yeast/Fungi Urine Few /hpf
--- NOTE | 2019-05-24 18:41 | NUR ---
ASSUMED CARE / SUMMARY: PT ARRIVED TO PCU-13 AT APPROX 1830. ON ARRIVAL THE PT IS AWAKE W/ EYES OPEN & FOLLOWING DIRECTION BUT IS NOT ANSWERING QUESTIONS SUCH . LS ARE COARSE ON R SIDE, PER SON, PT HAD PNA 2 WKS AGO TO THAT SIDE & WAS ADMITTED AT THAT TIME. PT ON 2L NC W/ O2 SATS > 92%. MONITOR SHOWS ST W/ PVCs, HR 110s. PT REMAINS HYPERTENSIVE, SBP 190s. FEBRILE W/ TEMPORAL TEMP 100.3, FAN APPLIED. ATTENDS IN PLACE FOR INCONTINENCE. PT IS BEDBOUND AT BASELINE R/T HX CVAs/ TIAs. WOUNDS TO BLE R/T POOR CIRCULATION, PT RECENTLY UNDERWENT PERIPHERAL REVASCULARIZAION TO BLE BY DR CANCHOLA PER REPORT OF SON. WOUNDS ARE WELL DRESSED & NOT VISUALIZED BY THIS RN. WILL CONTINUE TO MONITOR & REPORT OFF TO ONCOMING RN.
[2019-05-24] MEDS ORDERED: Pedi-Dri 100,0060 GM TOP (19:06)
[2019-05-24] MEDS ORDERED: MIRALAX17 GM PO (19:07)
[2019-05-24] MEDS ORDERED: FURO20 PO (19:08)
[2019-05-25 03:42] LABS: Source, Urine Catheter
[2019-05-25 03:44] LABS: Appearance, Urine Cloudy (Clear); Bilirubin, Urine Neg (Neg); Blood, Urine 4+ (Neg); Color, Urine Yellow (P-Yellow); Glucose Qualitative, Urine Neg (Neg); Ketones, Urine Neg (Neg); Leukocyte Esterase, Urine 3+ (Neg); Nitrite, Urine Neg (Neg); Protein, Urine 3+ (Neg); Urobilinogen, Urine NORM (Normal); pH, Urine 6.5 (5.0-8.0)
[2019-05-25 03:50] LABS: Bacteria Many /hpf; Squamous Epithelial Cells Few /hpf (Few); White Blood Cells, Urine TNTC /hpf (0-5); Yeast/Fungi Urine Few /hpf
[2019-05-25 04:20] LABS: BASOPHILS ABSOLUTE AUTO 0.07 K/mm3 (0.00-0.23); BASOPHILS PERCENT AUTO 0 % (0-2); EOSINOPHILS PERCENT AUTO 0 % (0-6); Hematocrit 34.5 % (33.0-51.0); Hemoglobin 10.4 g/dL (11.5-16.0); IMMATURE GRAN ABSOLUTE AUTO 0.34 K/mm3 (0.00-0.10); IMMATURE GRAN PERCENT AUTO 1 % (0-1); LYMPHOCYTES ABSOLUTE AUTO 1.51 K/mm3 (0.84-5.20); LYMPHOCYTES PERCENT AUTO 4 % (21-46); MONOCYTES ABSOLUTE AUTO 1.52 K/mm3 (0.16-1.47); MONOCYTES PERCENT AUTO 4 % (4-13); Mean Corpuscular HGB 26.1 pg (26.0-34.0); Mean Corpuscular HGB Conc 30.1 g/dL (31.5-36.5); Mean Corpuscular Volume 87 fL (80-100); Mean Platelet Volume 10.5 fL (9.1-12.4); NEUTROPHILS ABSOLUTE AUTO 31.26 K/mm3 (1.96-9.15); NEUTROPHILS PERCENT AUTO 90 % (41-73); Platelet Count 323 K/mm3 (150-400); RDW Coefficient Variation 18.5 % (11.7-14.2); RDW Standard Deviation 58.8 fL (35.1-46.3); Red Blood Cell Count 3.98 M/mm3 (3.80-5.20)
[2019-05-25 04:37] LABS: Albumin, Blood 2.4 g/dL (3.4-5.0); Anion Gap 4 mmol/L (6-16); Blood Urea Nitrogen 30 mg/dL (8-24); Bun/Creatinine Ratio 35.8 (12.0-20.0); CO2, Blood 29 mmol/L (21-32); Calcium, Blood 9.9 mg/dL (8.5-10.1); Chloride, Blood 119 mmol/L (98-108); Creatinine, Blood 0.84 mg/dL (0.40-1.00); Glomerular Filtration Rate >60 (60-); Glucose, Blood 192 mg/dL (70-99); Phosphorus, Blood 1.4 mg/dL (2.5-4.9); Potassium, Blood 3.4 mmol/L (3.5-5.5); Sodium, Blood 152 mmol/L (136-145)
--- NOTE | 2019-05-25 05:06 | NUR ---
SHIFT SUMMARY PT VERY LETHARGIC AT BEGINNING OF SHIFT. DIFFICULT TO AROUSE. TACHYCARDIC IN THE 110S WITH PVCS. LUNGS COARSE. SATS ABOVE 92% ON 2L NC. HYPOACTIVE BOWEL SOUNDS. GR WAS CHANGED AND UA SENT TO LAB. NS W 20MEQ OF K INFUSING. PT HAS BECOME MORE ALERT SHIFT WENT ON. WILL COMPLAIN OF PAIN WHEN MOVED/REPOSITIONED IN BED. VSS. WILL CONTINUE TO MONITOR UNTIL SHIFT REPORT.
--- NOTE | 2019-05-25 08:00 | NUR ---
ASSUMED CARE OF PT AT 0700. REPORT FROM ROCIO CATHERINE. PT WAKES c VERBAL STIMULI. A&O X2. ANSWERS MOST QUESTIONS APPROPRIATELY. FOLLOWS COMMANDS. LUNGS COARSE THROUGHOUT. 2L O2 VIA NC. PT P/W/D. ST, 100'S. HTN NOTED. ABD ROUND, SOFT, NON TENDER. BT X 4. GR PATENT, DRAINING TO GRAVITY, CLOUDY YELLOW URINE c SEDIMENT. DRESSINGS BILATERAL LOWER LEGS. WILL CONTINUE TO MONITOR.
--- NOTE | 2019-05-25 10:35 | NUR ---
DR SAMPSON IN TO SEE PT. IVF CHANGED TO D5%, 1/2 NS c KCL AT 75 ML/HR. DRESSINGS REMOVED FROM LOWER LEGS. 5 CM ULCER TO LATERAL LEFT LOWER LEG, 3 CIRCULAR ULCERS TO POSTERIOR RIGHT LEG, 2 CIRCULAR ULCERS TO ANTERIOR RIGHT LEG. PHOTOS TAKEN FOR CHART. DRESSINGS APPLIED. PT c PRODUCTIVE COUGH, GREEN SPUTUM. NO DIFFICUTLIES SWALLOWING LIQUIDS. WILL CONTINUE TO MONITOR.
--- NOTE | 2019-05-25 17:48 | NUR ---
SHIFT SUMMARY PT MENTATION IMPROVED THIS SHIFT. A&OX 2. ANSWERS QUESTIONS APPROPRIATELY. INTERMITTANTLY MAKES CONFUSED STATEMENTS, EASILY REORIENTED. NO DIFFICULTIES SWALLOWING THIS SHIFT. GOOD PO INTAKE. DRINKING WATER IN BED. ASSISTED c MEALS. LUNGS COARSE, WORSE ON RIGHT. O2 AT 2L VIA NC. VSS. PT C/O ABD PAIN THIS SHIFT. STATES LAST GOOD BM WAS THREE DAYS AGO. SMALL BM AT BEGINNING OF SHIFT. MEDICATED FOR PAIN, NAUSEA AND CONSTIPATION. PT REQUESTING MIRALAX. WILL MEDICATED IF NO RELIEF c MILK OF MAG. ABD FIRM, DISTENDED. BT X 4. GR PATENT AND DRAINING TO GRAVITY. DRESSINGS PLACED TO BILATERAL LOWER LEGS. PICTURES TAKEN. DR SAMPSON IN TO SEE PT TODAY. INSTRUCTED TO INCREASE PO INTAKE. SON RISSA TO SEE PT TODAY. REPORT TO ONCOMING NURSE.
[2019-05-26 04:04] LABS: BASOPHILS ABSOLUTE AUTO 0.06 K/mm3 (0.00-0.23); BASOPHILS PERCENT AUTO 0 % (0-2); EOSINOPHILS ABSOLUTE AUTO 0.05 K/mm3 (0.00-0.68); EOSINOPHILS PERCENT AUTO 0 % (0-6); Hematocrit 28.6 % (33.0-51.0); Hemoglobin 8.4 g/dL (11.5-16.0); IMMATURE GRAN ABSOLUTE AUTO 0.36 K/mm3 (0.00-0.10); IMMATURE GRAN PERCENT AUTO 2 % (0-1); LYMPHOCYTES PERCENT AUTO 7 % (21-46); MONOCYTES ABSOLUTE AUTO 1.11 K/mm3 (0.16-1.47); MONOCYTES PERCENT AUTO 5 % (4-13); Mean Corpuscular HGB 26.3 pg (26.0-34.0); Mean Corpuscular HGB Conc 29.4 g/dL (31.5-36.5); Mean Platelet Volume 10.6 fL (9.1-12.4); NEUTROPHILS ABSOLUTE AUTO 18.75 K/mm3 (1.96-9.15); NEUTROPHILS PERCENT AUTO 86 % (41-73); Platelet Count 258 K/mm3 (150-400); RDW Coefficient Variation 18.6 % (11.7-14.2); RDW Standard Deviation 61.5 fL (35.1-46.3); Red Blood Cell Count 3.19 M/mm3 (3.80-5.20); White Blood Cell Count 21.93 K/mm3 (4.00-11.30)
[2019-05-26 04:17] LABS: Mean Corpuscular Volume 90 fL (80-100)
[2019-05-26 04:35] LABS: Anion Gap 9 mmol/L (6-16); Blood Urea Nitrogen 37 mg/dL (8-24); Bun/Creatinine Ratio 46.1 (12.0-20.0); CO2, Blood 21 mmol/L (21-32); Calcium, Blood 8.8 mg/dL (8.5-10.1); Chloride, Blood 111 mmol/L (98-108); Glomerular Filtration Rate >60 (60-); Glucose, Blood 271 mg/dL (70-99); Phosphorus, Blood 1.4 mg/dL (2.5-4.9); Potassium, Blood 3.7 mmol/L (3.5-5.5)
[2019-05-26 04:36] LABS: Sodium, Blood 141 mmol/L (136-145)
--- NOTE | 2019-05-26 06:00 | NUR ---
SHIFT SUMMARY . ASSUMED CARE AT 1900. VERY LETHAARGIC BUT AROUSABLE APPROPRIATE MENTATION AND MOANS OCC W/ LEG PAIN IF MOVED AT ALL DUE TO LEGS . LEFT LE WRAPPED AND NO OOZING THRU . NOTED LT HEEL OOZING W/ BLOOD AND WOUND CLEANSED AND MEPILEX APPLIED. GROSS MOTOR / FLACCID LT EXTREMITY. DIFFICULT TO EVAL DUE TO UNCOOPERATIVE IN NEURO ASSESS. SPLINT AND NO HAND GRASP LT .DOPPLER USED FOR ALL PULSES EXCEPT RT RADIAL. COOLER LT HAND AND SLUGGISH CAP REFILL. PAIN MED X 1 TONIGHT. W/ SOME COMFORT AND DOZING OFF. AWAKENED FOR TURNING AND YELLS OUT ONCE ,"I POOPED , CLEAN ME UP" 3 LG FORMED INCONT STOOLS. NO FURTHER C/O ABD PAIN FIRST PART OF SHIFT. 2 L WNL SATS AND NO RESP DISTRESS. URINE ARIADNA CLOUDY. JUICE GIVEN FOR HS SNACK AND BLOOD SUGAR COVER. COCCYX WOUND EXCORIATED NOT COVERED ONLY UNGT FOR INCONT STOOL CLEANING . SR ALL NOC
--- NOTE | 2019-05-26 07:39 | NUR ---
ASSUMED CARE: PT RESTING QUIETLY AT THIS TIME. 2L NC IN PLACE. ROUSES EASILY. NO ACUTE NEEDS OR DISTRESS NOTED AT THIS TIME.
--- NOTE | 2019-05-26 14:55 | NUR ---
CODE STATUS CHANGED. DNR BAND IN PLACE AND COPY OF POLST IN CHART. ORIGINAL IN DC PACKET
--- NOTE | 2019-05-26 17:39 | NUR ---
REPORT GIVEN TO MEDICAL FLOOR RN. PT DENIED NEEDS OR CONCERNS. TRANSFERRED VIA BED BY HOSPITAL STAFF
--- NOTE | 2019-05-26 17:52 | NUR ---
TRANSFER SUMMARY PT TRANSFERRED FROM PCU, REPORT OBTAINED FROM BECKY CATHERINE. PT IN STABLE CONDITION, PT COMPLIANES OF BILATERAL LEGS SORE TO TOUCH, DRESSINGS CHANGED PRIOR TO TRANSFER, PT HAS REDDENED AREA TO COCCYX, PREVENTATIVE MEFLEX APPLIED AND PHOTOS TAKEN FOR DOCUMENTATION.
[2019-05-26 17:56] LABS: Vancomycin, Trough 14.2 ug/mL (5.0-10.0)
--- NOTE | 2019-05-26 18:15 | NUR ---
PATIENT DECLINED DINNER TRAY WHEN OFFERED. STATED SHE WAS NOT HUNGRY AT THIS TIME. RN WAS NOTIFIED.
[2019-05-27 05:07] LABS: BASOPHILS ABSOLUTE AUTO 0.03 K/mm3 (0.00-0.23); BASOPHILS PERCENT AUTO 0 % (0-2); EOSINOPHILS ABSOLUTE AUTO 0.12 K/mm3 (0.00-0.68); EOSINOPHILS PERCENT AUTO 1 % (0-6); Hematocrit 28.8 % (33.0-51.0); Hemoglobin 8.8 g/dL (11.5-16.0); IMMATURE GRAN ABSOLUTE AUTO 0.17 K/mm3 (0.00-0.10); IMMATURE GRAN PERCENT AUTO 2 % (0-1); LYMPHOCYTES ABSOLUTE AUTO 1.57 K/mm3 (0.84-5.20); LYMPHOCYTES PERCENT AUTO 15 % (21-46); MONOCYTES PERCENT AUTO 6 % (4-13); Mean Corpuscular HGB 26.5 pg (26.0-34.0); Mean Corpuscular HGB Conc 30.6 g/dL (31.5-36.5); Mean Corpuscular Volume 87 fL (80-100); Mean Platelet Volume 10.8 fL (9.1-12.4); NEUTROPHILS ABSOLUTE AUTO 8.27 K/mm3 (1.96-9.15); NEUTROPHILS PERCENT AUTO 76 % (41-73); Platelet Count 254 K/mm3 (150-400); RDW Coefficient Variation 18.2 % (11.7-14.2); RDW Standard Deviation 58.3 fL (35.1-46.3); Red Blood Cell Count 3.32 M/mm3 (3.80-5.20); White Blood Cell Count 10.86 K/mm3 (4.00-11.30)
[2019-05-27 05:25] LABS: Anion Gap 7 mmol/L (6-16); Blood Urea Nitrogen 24 mg/dL (8-24); Bun/Creatinine Ratio 34.8 (12.0-20.0); CO2, Blood 24 mmol/L (21-32); Calcium, Blood 8.7 mg/dL (8.5-10.1); Chloride, Blood 110 mmol/L (98-108); Creatinine, Blood 0.69 mg/dL (0.40-1.00); Glomerular Filtration Rate >60 (60-); Glucose, Blood 136 mg/dL (70-99); Phosphorus, Blood 2.4 mg/dL (2.5-4.9); Potassium, Blood 3.5 mmol/L (3.5-5.5); Sodium, Blood 141 mmol/L (136-145)
--- NOTE | 2019-05-27 06:10 | NUR ---
CONSULTING MARINE ENGINEER SUMMARY PT A/O X1 TO SELF. ORAL CARE PERFORMED. PT MUMBLES WORDS THAT IS INCOMPREHENSIBLE. ALSO VERY SLOW TO RESPOND. PT HAS TO BE REDIRECTED MULTIPLE TIMES AND STILL DOES NOT ANSWER. PT WAS SLEEPY AT BEGINNING OF SHIFT. SLEPT THROUGH THE NIGHT. MEDICATED ONCE FOR PAIN THIS SHIFT. GR DRAINING CLEAR ARIADNA URINE. PT ALSO HAD BM X1. VSS, NO ACUTE CHANGES.
[2019-05-27 17:52] LABS: Vancomycin, Trough 17.6 ug/mL (5.0-10.0)
--- NOTE | 2019-05-27 18:02 | NUR ---
PT IS A/OX2, FORGETFULL AT TIMES, THE PT SLEPT T/O MOST OF THE DAY, PT APPEARED TO BE BREATHING EASILY AT REST, THE PT WAS MEDICATED FOR PAIN X1 TODAY JUST BEFORE WOUND CARE WAS PREFORMED, THE PT TOLERATED THE DRESSING CHANGES WELL, PT HAS A POOR APPETITE, PTS LE'S ELEVATED, CALL LIGHT IN REACH WILL CONTINUE TO MONITOR AND ASSESS FOR CHANGES
--- NOTE | 2019-05-28 04:25 | NUR ---
SHIFT SUMMARY PT HAS RESTED FOR MOST OF THE NIGHT. SHE OCCASIONALLY MOANS AND YELLS OUT, WHEN ASKED IF SHE IS OK SHE STATES SHE IS FINE. PT IS A/O TO SELF, AND PLACE, UNABLE TO TELL ME THE YEAR OR WHO THE PRESIDENT IS, FORGETFUL. AFFECT IS FLAT. PT REPORTS PAIN IN HER LEGS, AND BACK AND RATES 8 (0-10) SCALE. MEDICATED WITH NORCO WITH EFFECT. PT SLEEPS MOST OF THE TIME. PT APPETITE IS POOR. BG 100'S-137 THIS SHIFT. INSULIN HELD FOR THIS REASON. GR IN PLACE PATENT AND DRAINING. DRESSING C/D/I. NO ACUTE CHANGES TO REPORT OVERNIGHT. WILL CONTINUE TO MONITOR AND REPORT TO ONCOMING RN.
[2019-05-28 05:44] LABS: BASOPHILS ABSOLUTE AUTO 0.02 K/mm3 (0.00-0.23); BASOPHILS PERCENT AUTO 0 % (0-2); EOSINOPHILS ABSOLUTE AUTO 0.28 K/mm3 (0.00-0.68); EOSINOPHILS PERCENT AUTO 3 % (0-6); Hematocrit 28.7 % (33.0-51.0); Hemoglobin 8.8 g/dL (11.5-16.0); IMMATURE GRAN ABSOLUTE AUTO 0.13 K/mm3 (0.00-0.10); IMMATURE GRAN PERCENT AUTO 2 % (0-1); LYMPHOCYTES ABSOLUTE AUTO 1.36 K/mm3 (0.84-5.20); LYMPHOCYTES PERCENT AUTO 17 % (21-46); MONOCYTES ABSOLUTE AUTO 0.58 K/mm3 (0.16-1.47); MONOCYTES PERCENT AUTO 7 % (4-13); Mean Corpuscular HGB 26.3 pg (26.0-34.0); Mean Corpuscular HGB Conc 30.7 g/dL (31.5-36.5); Mean Corpuscular Volume 86 fL (80-100); Mean Platelet Volume 10.9 fL (9.1-12.4); NEUTROPHILS ABSOLUTE AUTO 5.87 K/mm3 (1.96-9.15); NEUTROPHILS PERCENT AUTO 71 % (41-73); Platelet Count 262 K/mm3 (150-400); RDW Standard Deviation 57.3 fL (35.1-46.3); Red Blood Cell Count 3.34 M/mm3 (3.80-5.20); White Blood Cell Count 8.24 K/mm3 (4.00-11.30)
[2019-05-28 05:51] LABS: Anion Gap 5 mmol/L (6-16); Blood Urea Nitrogen 24 mg/dL (8-24); Bun/Creatinine Ratio 33.8 (12.0-20.0); CO2, Blood 25 mmol/L (21-32); Calcium, Blood 8.5 mg/dL (8.5-10.1); Chloride, Blood 110 mmol/L (98-108); Creatinine, Blood 0.71 mg/dL (0.40-1.00); Glomerular Filtration Rate >60 (60-); Glucose, Blood 97 mg/dL (70-99); Phosphorus, Blood 3.5 mg/dL (2.5-4.9); Potassium, Blood 3.5 mmol/L (3.5-5.5); Sodium, Blood 140 mmol/L (136-145)
[2019-05-28] MEDS ORDERED: Florastor250 MG PO (13:56)
[2019-05-28] MEDS ORDERED: CEPH500 PO (13:58)
--- NOTE | 2019-05-28 15:01 | NUR ---
DISCHARGE SUMMARY PT TRANSFERING BACK TO [facility], REPORT GIVEN TO TERRELL CATHERINE. PT TRANSPORTED BY MEDICAL TRANSPORT. PT HAD DRESSING CHANGED THIS AM. PT STABLE AND ALERT TO SELF, DATE AND SITUATION.
== END 2019-05-28 15:30 | DRG 871 ==
LOC: ER 15:24 → PCU 16:31 → MEDS 05-26 16:45
PROVIDERS: Emergency Medicine; Pharmacist; ADMIT Internal Medicine Endocrinology, Diabetes & Metabolism
DX: A41.52 Sepsis due to Pseudomonas (principal); G92 Toxic encephalopathy; E43 Unspecified severe protein-calorie malnutrition; I69.359 Hemiplegia and hemiparesis following cerebral infarction affecting unspecified side; J98.11 Atelectasis; E87.1 Hypo-osmolality and hyponatremia; E87.0 Hyperosmolality and hypernatremia; L97.329 Non-pressure chronic ulcer of left ankle with unspecified severity; L97.319 Non-pressure chronic ulcer of right ankle with unspecified severity; E11.51 Type 2 diabetes mellitus with diabetic peripheral angiopathy without gangrene; J44.9 Chronic obstructive pulmonary disease, unspecified; I10 Essential (primary) hypertension; Z66 Do not resuscitate; F03.90 Unspecified dementia, unspecified severity, without behavioral disturbance, psychotic disturbance, mood disturbance, and anxiety; Z74.01 Bed confinement status; D63.8 Anemia in other chronic diseases classified elsewhere; E86.9 Volume depletion, unspecified; Z96.0 Presence of urogenital implants; E11.65 Type 2 diabetes mellitus with hyperglycemia; E11.40 Type 2 diabetes mellitus with diabetic neuropathy, unspecified; K21.9 Gastro-esophageal reflux disease without esophagitis; I25.10 Atherosclerotic heart disease of native coronary artery without angina pectoris; Z99.81 Dependence on supplemental oxygen; Z86.718 Personal history of other venous thrombosis and embolism; Z87.891 Personal history of nicotine dependence; Z88.6 Allergy status to analgesic agent; Z88.5 Allergy status to narcotic agent; Z88.0 Allergy status to penicillin; Z88.2 Allergy status to sulfonamides; Z88.8 Allergy status to other drugs, medicaments and biological substances; Z79.02 Long term (current) use of antithrombotics/antiplatelets; Z79.4 Long term (current) use of insulin; Z79.51 Long term (current) use of inhaled steroids; Z79.899 Other long term (current) drug therapy; Z87.440 Personal history of urinary (tract) infections; Z68.31 Body mass index [BMI] 31.0-31.9, adult
CPT/HCPCS: 36415; 36600; 71045; 80048; 80069; 80202; 81001; 82803; 82947; 83605; 84484; 85025; 86850; 86900; 86901; 87040; 87077; 87086; 87186; 93005; 93010; 94664; 94667; 94760; 96365; 96366; 96368; 98960; 99285-25; A9270; A9270-GY; J1650; J1815; J1956; J3370; J3480; J7030; J7050